=== PATIENT | male | born 1940 | race Caucasian/White ===

== ENCOUNTER 2020-11-24 09:43 | Outpatient (REF) | payer MEDICARE, SELFPAY ==
[2020-11-24 11:55] LABS: MANUAL DIFF FLAG NO
[2020-11-24 12:06] LABS: Basophils Absolute Auto 0.1 X10*3/uL (0.0-0.2); Basophils Percent Auto 0.9 % (0-2); Eosinophils Absolute Auto 0.2 X10*3/uL (0.0-0.4); Eosinophils Percent Auto 1.7 % (0-4); Hematocrit 42.6 % (42-52); Hemoglobin 13.9 g/dl (14.0-18.0); Imm Gran Pct Auto 0.9 % (0.0-0.4); Lymphocytes Absolute Auto 1.6 X10*3/uL (1.2-4.9); Lymphocytes Percent Auto 13.7 % (20-40); Mean Corpuscular HGB Conc 32.6 g/dl (31.0-36.0); Mean Corpuscular Hemoglobin 28.1 pg (27.0-33.0); Mean Corpuscular Volume 86.2 fL (80-98); Mean Platelet Volume 9.6 fL (9.4-12.4); Monocytes Absolute Auto 0.9 X10*3/uL (0.1-1.2); Monocytes Percent Auto 7.8 % (2-11); Neutrophils Absolute Auto 8.7 X10*3/uL (2.0-8.3); Platelet Count 246 X10*3/uL (160-400); Red Blood Count 4.94 X10*6/uL (4.60-5.80); Red Cell Distribution Width 13.1 % (11.0-16.0); White Blood Count 11.6 X10*3/uL (4.8-10.8)
[2020-11-24 12:28] LABS: Anion Gap 12 (12-20); Blood Urea Nitrogen 25 mg/dL (9-16); Calcium 9.1 mg/dL (8.4-10.2); Carbon Dioxide 27 mmol/L (22-29); Chloride 106 mmol/L (96-108); Estimated Glomerular Filt Rate 55; Glucose Random 92 mg/dL (60-115); Potassium 4.7 mmol/L (3.3-5.1); Sodium 140 mmol/L (135-145)
[2020-11-24 13:00] LABS: Erythrocyte Sedimentation Rate 27 MM/HR (0-15)
[2020-11-26 00:11] LABS: Anti Nuclear Antibody Screen POSITIVE (NEGATIVE); Anti Nuclear Antibody Titer 1:40 titer
[2020-11-26 13:57] LABS: Anti DNA DS Antibody 1 IU/mL; Myeloperoxidase Antibody <1.0 AI; Proteinase 3 PR3 Antibodies <1.0 AI
[2020-11-26 14:22] LABS: Cyclic Citrullinated Peptide <16 UNITS
[2020-11-29 14:31] LABS: Asperg fumigatus Precip Abs NEGATIVE (NEGATIVE); Micropoly faeni Abs NEGATIVE (NEGATIVE); Pigeon serum Abs NEGATIVE (NEGATIVE); Saccharo pora viridis Abs NEGATIVE (NEGATIVE); Thermo candidus Abs NEGATIVE (NEGATIVE); Thermoa vulgaris #1 NEGATIVE (NEGATIVE)
== END 2020-11-24 09:44 | disposition home or self-care (01) ==
LOC: HO.LAB 09:43
PROVIDERS: PCP Internal Medicine; Visit Provider Hospitalist
DX: J84.9 Interstitial pulmonary disease, unspecified (principal); R06.00 Dyspnea, unspecified; J41.0 Simple chronic bronchitis; R91.8 Other nonspecific abnormal finding of lung field; R59.1 Generalized enlarged lymph nodes
CPT/HCPCS: 36415; 80048; 85025; 85652; 86021; 86038; 86039; 86200; 86225; 86331; 86606; 86609; 99202

== ENCOUNTER → 2020-12-29 09:41 | Outpatient (BNVA) | payer MEDICARE, SELFPAY | PROVIDERS: PCP Internal Medicine; Visit Provider Hospitalist | DX: R59.1 Generalized enlarged lymph nodes (principal); R91.8 Other nonspecific abnormal finding of lung field; R06.00 Dyspnea, unspecified; J41.0 Simple chronic bronchitis; J84.9 Interstitial pulmonary disease, unspecified | CPT/HCPCS: 99212 ==

== ENCOUNTER → 2021-02-10 09:35 | Outpatient (BNVA) | payer MEDICARE, SELFPAY | PROVIDERS: PCP Internal Medicine; Visit Provider Hospitalist | DX: J41.0 Simple chronic bronchitis (principal); R59.1 Generalized enlarged lymph nodes; R91.8 Other nonspecific abnormal finding of lung field; R06.00 Dyspnea, unspecified; J84.9 Interstitial pulmonary disease, unspecified; S22.49XD Multiple fractures of ribs, unspecified side, subsequent encounter for fracture with routine healing | CPT/HCPCS: 99212 ==

== ENCOUNTER 2021-02-26 09:17 | Outpatient (REF) | payer MEDICARE, SELFPAY ==
--- NOTE | ~2021-02-26 | XR_ITS ---
EXAMINATION: XR CHEST CLINICAL INFORMATION: Multiple rib fractures. COMPARISON: None TECHNIQUE: 2 views of the chest were obtained. FINDINGS: Displaced lateral right 8th rib fracture. Possible nondisplaced left 7th and 8th rib fractures. Irregular airspace opacity within the periphery of the right lung, which may represent scarring versus atelectasis. No pleural effusion or pneumothorax. Unremarkable cardiomediastinal silhouette. XR/XR chest 2V IMPRESSION: 1. Displaced right lateral 8th rib fracture and possible nondisplaced left 7th and 8th rib fractures. 2. Peripheral airspace opacity within the underlying lateral right lung which may represent atelectasis versus scarring.
== END 2021-02-26 09:18 | disposition home or self-care (01) ==
LOC: HO.XRAY 09:17
PROVIDERS: PCP Internal Medicine; Visit Provider Hospitalist
DX: S22.49XA Multiple fractures of ribs, unspecified side, initial encounter for closed fracture (principal)
CPT/HCPCS: 71046

== ENCOUNTER → 2021-04-14 09:38 | Outpatient (BNVA) | payer MEDICARE, SELFPAY | PROVIDERS: PCP Internal Medicine; Visit Provider Hospitalist | DX: J41.0 Simple chronic bronchitis (principal); J84.9 Interstitial pulmonary disease, unspecified; R06.00 Dyspnea, unspecified; K21.9 Gastro-esophageal reflux disease without esophagitis; R59.1 Generalized enlarged lymph nodes; R91.8 Other nonspecific abnormal finding of lung field; S22.49XD Multiple fractures of ribs, unspecified side, subsequent encounter for fracture with routine healing | CPT/HCPCS: 99212 ==

== ENCOUNTER 2021-06-09 08:06 | Outpatient (REF) | payer MEDICARE, SELFPAY ==
--- NOTE | ~2021-06-09 | CT_ITS ---
EXAMINATION: CT CHEST WITHOUT CONTRAST CLINICAL INFORMATION: Rib fractures COMPARISON: Previous chest x-ray February 2021 TECHNIQUE: Multidetector volumetric CT imaging of the chest was done. Axial MIP volume rendering provided. Sagittal and coronal reformatted images were obtained. This CT examination was performed using dose optimization techniques as appropriate, variously including the following: *Automated exposure control *Adjustment of mA and/or kV according to patient size (this includes techniques or standardized protocols for targeted exams where dose is matched to indication/reason for exam; i.e. extremities or head) *Use of iterative reconstruction technique DLP: 134 mGy-cm FINDINGS: LUNGS: There are 2 adjacent calcified nodules in the right middle lobe. 4 mm and 3 mm axial image 3 02/18/1973 series 7. There is peripheral or subpleural linear scarring or subsegmental atelectasis in the right lower lobe. There is subsegmental atelectasis in the left lower lobe adjacent to the diaphragm. MEDIASTINUM: There is evidence of atherosclerotic disease. There may be a small esophageal hernia. The mediastinum is otherwise normal. PLEURA: There is no pleural effusion. No pneumothorax. AXILLA: No lymphadenopathy. UPPER ABDOMEN: There may be a partially visualized cyst with wall calcification seen in the upper pole of the left kidney. There is diverticulosis of the colon. There is question of a small 5 mm low-attenuation lesion in the right lobe the liver axial image 54 series 3. OSSEOUS STRUCTURES: There are healing right posterior seventh and eighth rib fractures. There are healing lateral right sixth through ninth rib fractures. Fractures appear nondisplaced. There are mild degenerative changes of the spine. CT/CT chest wo con IMPRESSION: Multiple healing nondisplaced right lateral and posterior rib fractures, the right sixth through ninth ribs. Adjacent scarring or subsegmental atelectasis in the right lower lobe. 2 small calcified right middle lobe nodules probably representing calcified granulomas. Fleischner guidelines were followed.
== END 2021-06-09 08:07 | disposition home or self-care (01) ==
LOC: HO.CT 08:06
PROVIDERS: Visit Provider Hospitalist
DX: R59.1 Generalized enlarged lymph nodes (principal); R91.8 Other nonspecific abnormal finding of lung field; S22.49XD Multiple fractures of ribs, unspecified side, subsequent encounter for fracture with routine healing
CPT/HCPCS: 71250

== ENCOUNTER → 2021-06-22 09:00 | Outpatient (BNVA) | payer MEDICARE, SELFPAY | PROVIDERS: PCP Internal Medicine; Visit Provider Hospitalist | DX: R59.1 Generalized enlarged lymph nodes (principal); J41.0 Simple chronic bronchitis; R91.8 Other nonspecific abnormal finding of lung field; R06.00 Dyspnea, unspecified; J84.9 Interstitial pulmonary disease, unspecified; S22.49XD Multiple fractures of ribs, unspecified side, subsequent encounter for fracture with routine healing | CPT/HCPCS: 99212 ==

== ENCOUNTER → 2021-11-17 09:31 | Outpatient (BNVA) | payer MEDICARE, SELFPAY | PROVIDERS: PCP Internal Medicine; Visit Provider Hospitalist | DX: R91.8 Other nonspecific abnormal finding of lung field (principal); J41.0 Simple chronic bronchitis; J84.9 Interstitial pulmonary disease, unspecified; R06.00 Dyspnea, unspecified; S22.49XD Multiple fractures of ribs, unspecified side, subsequent encounter for fracture with routine healing; Z79.899 Other long term (current) drug therapy; Z99.81 Dependence on supplemental oxygen | CPT/HCPCS: 99212 ==

== ENCOUNTER 2022-06-16 08:06 | Outpatient (REF) | payer MEDICARE, SELFPAY ==
--- NOTE | ~2022-06-16 | CT_ITS ---
EXAMINATION: CT CHEST WITHOUT CONTRAST CLINICAL INFORMATION: Follow-up pulmonary nodules COMPARISON: Previous chest CT May 2021 TECHNIQUE: Multidetector volumetric CT imaging of the chest was done. Axial MIP volume rendering provided. Sagittal and coronal reformatted images were obtained. This CT examination was performed using dose optimization techniques as appropriate, variously including the following: *Automated exposure control *Adjustment of mA and/or kV according to patient size (this includes techniques or standardized protocols for targeted exams where dose is matched to indication/reason for exam; i.e. extremities or head) *Use of iterative reconstruction technique DLP: 241 mGy-cm FINDINGS: LUNGS: There is a new triangular-shaped right millimeter right middle lobe nodule axial image 288 series 4. The clustered noncalcified pulmonary nodules in the right middle lobe largest measuring 3 mm are stable. The 2 mm calcified left upper lobe nodule axial image 114 series 4 is stable. There is bilateral peripheral or subpleural lower lobe scarring or chronic subsegmental atelectasis that is stable. MEDIASTINUM: Normal heart size. No pericardial effusion. Upper normal-size thoracic aorta. Coronary artery and aortic valve calcification. No enlarged lymph nodes. CORONARY ARTERY CALCIFICATION: Moderate PLEURA: There is no pleural effusion. AXILLA: No lymphadenopathy. UPPER ABDOMEN: 6 cm cyst exophytic to the upper pole of the left kidney with a focus of wall calcification. Diverticulosis of the colon. 5 mm low-attenuation liver lesion in the right lobe that is stable axial image 50 series 2. Question 5 mm low-attenuation lesion in the left lobe axial image 50 series 2. OSSEOUS STRUCTURES: Old right rib fractures. Degenerative changes of the spine. CT/CT chest wo IV con IMPRESSION: Stable pulmonary nodules and scarring or chronic subsegmental atelectasis in the lateral lower lobes. Coronary artery and aortic valve calcification. Upper normal-size thoracic aorta. Fleischner guidelines were followed.
== END 2022-06-16 08:07 | disposition home or self-care (01) ==
LOC: HO.CT 08:06
PROVIDERS: PCP Internal Medicine; Visit Provider Hospitalist
DX: R91.8 Other nonspecific abnormal finding of lung field (principal)
CPT/HCPCS: 71250

== ENCOUNTER → 2022-06-21 09:11 | Outpatient (BNVA) | payer MEDICARE, SELFPAY | PROVIDERS: PCP Internal Medicine; Visit Provider Hospitalist | DX: J41.0 Simple chronic bronchitis (principal); R91.8 Other nonspecific abnormal finding of lung field; R06.00 Dyspnea, unspecified; J84.9 Interstitial pulmonary disease, unspecified | CPT/HCPCS: 99212 ==

== ENCOUNTER → 2022-10-06 10:53 | Outpatient (BNVA) | payer MEDICARE, SELFPAY | PROVIDERS: PCP Internal Medicine; Visit Provider Hospitalist | DX: J44.1 Chronic obstructive pulmonary disease with (acute) exacerbation (principal); J84.9 Interstitial pulmonary disease, unspecified; R91.8 Other nonspecific abnormal finding of lung field; R06.00 Dyspnea, unspecified | CPT/HCPCS: 94640; 96372; 99212; J2930 ==

== ENCOUNTER → 2022-10-21 10:16 | Outpatient (REF) | payer MEDICARE, SELFPAY ==
--- NOTE | 2022-10-21 11:04 | ECG_ITS ---
Test Reason : COPD Blood Pressure : / mmHG Vent. Rate : 054 BPM Atrial Rate : 054 BPM P-R Int : 130 ms QRS Dur : 096 ms QT Int : 426 ms P-R-T Axes : 061 027 030 degrees QTc Int : 403 ms Sinus bradycardia with occasional Premature ventricular complexes Otherwise normal ECG No previous ECGs available Referred By: Cristian Ferreira Electronically Signed By:MARIETTA LONG MD
== END ==
LOC: HO.CARD 10:16
PROVIDERS: PCP Internal Medicine; Visit Provider Hospitalist
DX: J44.9 Chronic obstructive pulmonary disease, unspecified (principal); J84.9 Interstitial pulmonary disease, unspecified; R91.8 Other nonspecific abnormal finding of lung field; Z79.899 Other long term (current) drug therapy
CPT/HCPCS: 93005; 99212

== ENCOUNTER 2023-02-08 08:43 | Outpatient (REF) | payer MEDICARE, SELFPAY ==
--- NOTE | ~2023-02-08 | XR_ITS ---
EXAMINATION: XR CHEST CLINICAL INFORMATION: Pneumonia. COMPARISON: None available. TECHNIQUE: 2 views of the chest were obtained. FINDINGS: The lungs are well-expanded and clear acute pneumonic process. The heart size and pulmonary vascularity is normal. No gross bony abnormality seen. XR/XR chest 2V IMPRESSION: Unremarkable chest exam.
== END 2023-02-08 08:44 | disposition home or self-care (01) ==
LOC: HO.XRAY 08:43
PROVIDERS: PCP Internal Medicine; Visit Provider Hospitalist
DX: R04.2 Hemoptysis (principal); J44.9 Chronic obstructive pulmonary disease, unspecified; R91.8 Other nonspecific abnormal finding of lung field; J18.9 Pneumonia, unspecified organism
CPT/HCPCS: 71046; 94618; 99212

== ENCOUNTER 2023-02-08 09:06 | Outpatient (AMB) | payer MEDICARE, SELFPAY ==
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
[2023-02-08 09:17] VITALS: BP 126/70; PULSE 50; O2SAT 96; BMI 25.3
[2023-02-08 11:02] VITALS: PULSE 47; O2SAT 94
== END 2023-02-08 11:03 | disposition home or self-care (01) ==
PROVIDERS: PCP Internal Medicine; Visit Provider Nurse Practitioner Family
DX: R04.2 Hemoptysis (principal); J44.9 Chronic obstructive pulmonary disease, unspecified; R91.8 Other nonspecific abnormal finding of lung field
CPT/HCPCS: 94618; 99214

== ENCOUNTER 2023-02-15 10:43 | Outpatient (AMB) | payer MEDICARE, SELFPAY ==
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
[2023-02-15 11:24] VITALS: BP 134/70; PULSE 51; O2SAT 94; BMI 25.0
== END 2023-02-15 12:06 | disposition home or self-care (01) ==
PROVIDERS: PCP Internal Medicine; Visit Provider Hospitalist
DX: J18.9 Pneumonia, unspecified organism (principal); R91.8 Other nonspecific abnormal finding of lung field
CPT/HCPCS: 99215

== ENCOUNTER → 2023-02-15 10:43 | Outpatient (BNVA) | payer MEDICARE, SELFPAY | PROVIDERS: Visit Provider Hospitalist | DX: J84.9 Interstitial pulmonary disease, unspecified (principal); J44.9 Chronic obstructive pulmonary disease, unspecified; R91.8 Other nonspecific abnormal finding of lung field; R06.00 Dyspnea, unspecified | CPT/HCPCS: 99212 ==

== ENCOUNTER 2023-03-02 07:27 | Outpatient (REF) | payer MEDICARE, SELFPAY ==
--- NOTE | ~2023-03-02 | CT_ITS ---
EXAMINATION: CT CHEST WITHOUT CONTRAST CLINICAL INFORMATION: Other nonspecific abnormal finding of lung field. COMPARISON: Chest radiograph 02/08/2023, CT chest 06/16/2022. TECHNIQUE: Multidetector volumetric CT imaging of the chest was done. Axial MIP volume rendering provided. Sagittal and coronal reformatted images were obtained. This CT examination was performed using dose optimization techniques as appropriate, variously including the following: *Automated exposure control. *Adjustment of mA and/or kV according to patient size (this includes techniques or standardized protocols for targeted exams where dose is matched to indication/reason for exam; i.e. extremities or head). *Use of iterative reconstruction technique. DLP: 119 mGy-cm FINDINGS: LUNGS: Some tiny punctate micronodules are seen most of which are calcified consistent with calcified granulomas. Previously seen new right middle lobe triangular opacity by my measurements previously measured 6 mm and currently measures 5 mm in greatest transverse dimension (7:345 compare prior 4:288). I suspect that this represents an intrapulmonary lymph node. The lungs are otherwise clear with no evidence of inflammation or concerning nodules. MEDIASTINUM: Heart size normal. No aortic aneurysm. Aortic valvular calcification. No mediastinal or hilar lymphadenopathy. CORONARY ARTERY CALCIFICATION: Present. PLEURA: There is old healed rib fracture on the right with some associated mild pleural thickening at that site. There is no pleural effusion. No worrisome pleural mass . AXILLA: No lymphadenopathy. UPPER ABDOMEN: Partial visualization of a 6 cm exophytic cyst arising from the upper pole of the left kidney with some calcification in its wall similar to prior. OSSEOUS STRUCTURES: Unremarkable. CT/CT chest wo IV con IMPRESSION: 1. No worrisome change in lung nodules. Most are granulomas. The largest is most likely an intrapulmonary lymph node which has decreased in size slightly. 2. Stable left renal cyst (probably Bosniak class II) although not completely visualized. Ultrasound could be performed for further evaluation to make certain that there are no solid components in the unimaged portion of the renal mass. Fleischner guidelines were followed.
== END 2023-03-02 07:28 | disposition home or self-care (01) ==
LOC: HO.CT 07:27
PROVIDERS: PCP Internal Medicine; Visit Provider Hospitalist
DX: J18.9 Pneumonia, unspecified organism (principal); R04.2 Hemoptysis; R91.8 Other nonspecific abnormal finding of lung field
CPT/HCPCS: 71250

== ENCOUNTER 2023-05-12 11:16 | Outpatient (AMB) | payer MEDICARE, SELFPAY ==
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
[2023-05-12 11:18] VITALS: BP 120/58; PULSE 69; O2SAT 93
== END 2023-05-12 11:55 | disposition home or self-care (01) ==
PROVIDERS: PCP Internal Medicine; Visit Provider Hospitalist
DX: J18.9 Pneumonia, unspecified organism (principal); R91.8 Other nonspecific abnormal finding of lung field; R06.00 Dyspnea, unspecified
CPT/HCPCS: 99214

== ENCOUNTER → 2023-05-12 11:16 | Outpatient (BNVA) | payer MEDICARE, SELFPAY | PROVIDERS: PCP Internal Medicine; Visit Provider Hospitalist | DX: J18.9 Pneumonia, unspecified organism (principal); J84.9 Interstitial pulmonary disease, unspecified; R91.8 Other nonspecific abnormal finding of lung field; R06.00 Dyspnea, unspecified | CPT/HCPCS: 99212 ==

== ENCOUNTER 2023-08-10 09:58 | Outpatient (AMB) | payer MEDICARE, SELFPAY ==
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
[2023-08-10 10:13] VITALS: BP 138/76; PULSE 58; O2SAT 94; BMI 25.0
== END 2023-08-10 10:53 | disposition home or self-care (01) ==
PROVIDERS: PCP Internal Medicine; Visit Provider Hospitalist
DX: J44.1 Chronic obstructive pulmonary disease with (acute) exacerbation (principal); R91.8 Other nonspecific abnormal finding of lung field; J84.9 Interstitial pulmonary disease, unspecified; G47.10 Hypersomnia, unspecified
CPT/HCPCS: 99215

== ENCOUNTER → 2023-08-10 09:58 | Outpatient (BNVA) | payer MEDICARE, SELFPAY | PROVIDERS: PCP Internal Medicine; Visit Provider Hospitalist | DX: J44.1 Chronic obstructive pulmonary disease with (acute) exacerbation (principal); J84.9 Interstitial pulmonary disease, unspecified; R91.8 Other nonspecific abnormal finding of lung field; R06.00 Dyspnea, unspecified; G47.10 Hypersomnia, unspecified | CPT/HCPCS: 99212 ==

== ENCOUNTER 2023-12-07 09:08 | Outpatient (AMB) | payer MEDICARE, SELFPAY ==
[2023-12-07 09:15] VITALS: BP 124/60; PULSE 50; O2SAT 96; BMI 23.8
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
== END 2023-12-07 09:47 | disposition home or self-care (01) ==
PROVIDERS: PCP Internal Medicine; Visit Provider Hospitalist
DX: J41.0 Simple chronic bronchitis (principal); R91.8 Other nonspecific abnormal finding of lung field; R06.00 Dyspnea, unspecified; J84.9 Interstitial pulmonary disease, unspecified; G47.10 Hypersomnia, unspecified
CPT/HCPCS: 99214

== ENCOUNTER → 2023-12-07 09:08 | Outpatient (BNVA) | payer MEDICARE, SELFPAY | PROVIDERS: PCP Internal Medicine; Visit Provider Hospitalist | DX: J44.9 Chronic obstructive pulmonary disease, unspecified (principal); J84.9 Interstitial pulmonary disease, unspecified; R91.8 Other nonspecific abnormal finding of lung field; G47.10 Hypersomnia, unspecified | CPT/HCPCS: 99212 ==

== ENCOUNTER 2024-03-20 09:37 | Outpatient (REF) | payer MEDICARE, SELFPAY ==
--- NOTE | ~2024-03-20 | CT_ITS ---
EXAMINATION: CT CHEST WITHOUT CONTRAST CLINICAL INFORMATION: Pulmonary nodules. COMPARISON: 03/02/2023 TECHNIQUE: Multidetector volumetric CT imaging of the chest was done. Axial MIP volume rendering provided. Sagittal and coronal reformatted images were obtained. This CT examination was performed using dose optimization techniques as appropriate, variously including the following: *Automated exposure control *Adjustment of mA and/or kV according to patient size (this includes techniques or standardized protocols for targeted exams where dose is matched to indication/reason for exam; i.e. extremities or head) *Use of iterative reconstruction technique DLP: 158 mGy-cm FINDINGS: PULMONARY NODULES: Again seen are some small pulmonary nodules many of which are granulomas. The largest noncalcified nodule is again noted in the right middle lobe and measures 6.9 x 3.8 mm with a mean of 5.4 mm (7:442) compared with 5.7 x 3.7 mm previously with a mean of 4.7 mm (7:346), an increase in size by 0.7 mm. LUNGS: There are mild emphysematous changes along with mild bronchial thickening. No bronchiectasis. Bilateral basilar atelectasis, right greater than left. MEDIASTINUM: The mediastinum is normal. CORONARY ARTERY CALCIFICATION: None visualized on this study. PLEURA: There is no pleural effusion. . AXILLA: No lymphadenopathy. UPPER ABDOMEN: A benign left upper pole Bosniak class II renal cyst is noted which requires no additional imaging or follow up. No solid renal masses are seen. OSSEOUS STRUCTURES: Old healed right-sided rib fracture with some associated pleural thickening is unchanged. CT/CT chest wo IV con IMPRESSION: 1. Multiple pulmonary nodules are again seen. The largest noncalcified nodule in the right middle lobe has increased in size by 0.7 mm. Significant growth is defined as 1.5 mm within a 12-month period. 2. Mild emphysematous changes and bronchial thickening. 3. Other incidental findings as described above. 4. Follow-up exam in 1 year is recommended Fleischner guidelines were followed. Electronically signed by: Live Garcia MD 04/21/2024 03:15 PM EDT
== END 2024-03-20 09:38 | disposition home or self-care (01) ==
LOC: HO.CT 09:37
PROVIDERS: PCP Internal Medicine; Visit Provider Hospitalist
DX: R91.8 Other nonspecific abnormal finding of lung field (principal)
CPT/HCPCS: 71250

== ENCOUNTER 2024-06-04 10:06 | Outpatient (AMB) | payer MEDICARE, SELFPAY ==
[2024-06-04 10:12] VITALS: BP 119/67; PULSE 51; O2SAT 93; BMI 24.4
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
== END 2024-06-04 10:40 | disposition home or self-care (01) ==
PROVIDERS: PCP Internal Medicine; Visit Provider Hospitalist
DX: J41.0 Simple chronic bronchitis (principal); R91.8 Other nonspecific abnormal finding of lung field; R06.00 Dyspnea, unspecified; J84.9 Interstitial pulmonary disease, unspecified; G47.10 Hypersomnia, unspecified
CPT/HCPCS: 99214; G2211

== ENCOUNTER → 2024-06-04 10:06 | Outpatient (BNVA) | payer MEDICARE, SELFPAY | PROVIDERS: PCP Internal Medicine; Visit Provider Hospitalist | DX: J41.0 Simple chronic bronchitis (principal); J84.9 Interstitial pulmonary disease, unspecified; R06.00 Dyspnea, unspecified; R91.8 Other nonspecific abnormal finding of lung field; G47.10 Hypersomnia, unspecified | CPT/HCPCS: 99212 ==

== ENCOUNTER 2024-09-17 09:14 | Outpatient (REF) | payer MEDICARE, SELFPAY ==
--- NOTE | ~2024-09-17 | CT_ITS ---
CLINICAL HISTORY: R91.8 - Other nonspecific abnormal finding of lung field CT chest without contrast Comparison: CT/TN/SR - CT CHEST WO IV CON - 03/20/24 10:26 EDT Findings: The heart size is normal. 4 cm ascending aorta, unchanged. Moderate to heavy coronary calcium. No pericardial effusion. Unremarkable thyroid. No adenopathy within the chest. Decompressed esophagus. No chest wall lesions. Mild apical emphysema. The trachea and central bronchi are patent. Chronic scarring in the right lung base. A bilobed right middle lobe pulmonary nodule currently measures 5 mm on image 97 of series 4, previously 5 mm. Calcified granulomas in the right middle lobe are stable. No new or enlarging pulmonary nodules or masses. No acute appearing consolidation or effusion. Large partially visualized left renal cysts, incompletely characterized. Small hiatal hernia. The bones are intact. IMPRESSION: 1. Small noncalcified pulmonary nodules are stable. Prior granulomatous disease. No acute process or new nodules. 2. Dilated ascending aorta up to 4 cm is stable. This document has been electronically signed by: Echo Davis MD on 09/18/2024 09:04:38
--- OUTSIDE RECORDS SUMMARY | 2024-09-17 09:57 | XMS_ITS ---
Author Name [facility] [place] [facility] [place] Address [address] [place] [address] Care Team Providers Care Printer'S Assistant Name Role Phone PAMELA BOLAÑOS Primary Care Provider Unavaila ble Insurance Providers: All historical and current Section Date Range: From patient's date of to the date document was created. This section includes the names of all active insurance providers for the patient. Insurance Provider Type of Coverage Plan Name Start of Policy Coverage End of Policy Coverage Group Number Member ID Insurance Provider's Telephone Number Policy Pete's Name Patient's Relationship to Policy Pete [facility] ([facility]) MEDICARE ADVANTAGE MCR ([facility]) Jul 18, 2019 [id number] OCHOA RANGEL PATIENT [facility] ([facility]NR) MEDICARE ADVANTAGE MCR (R) Jul 18, 2019 [id number] OCHOA RANGEL PATIENT [facility] ([place]NR) MEDICARE ADVANTAGE MCR (WNR) Jul 18, 2019 [id number] JUAN CARLOSOCHOAWilliam PATIENT [facility] ([place]) MEDICARE ADVANTAGE MCR ([facility]) Jul 18, 2017 [id number] OCHOA RANGEL PATIENT Selected Encounter This section includes the information on record at [place] for the Encounter. 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 BOLAÑOS,WILL ROSS [facility] Dec 21, 2023 02:28 PM SECONDARY Acute embolism and thombos unsp deep vn unsp lower extremity BOLAÑOS,WILL ROSS J [facility] Dec 21, 2023 02:28 PM SECONDARY Essential (primary) hypertension BOLAÑOS,WILL ROSS J [facility] Dec 21, 2023 02:28 PM SECONDARY Personal history of pulmonary embolism BOLAÑOS,WILL [facility] Dec 21, 2023 02:28 PM SECONDARY Respiratory bronchiolitis interstitial lung disease BOLAÑOS,WILL ROSS J [facility] Plan of Treatment: Future Appointments (+ 6 months) and Future Tests (+/- 45 days) The Plan of Treatment section includes future care activities for the patient from all [facility]. This section includes future appointments and future orders which are active, pending or scheduled. Future Appointments This section includes appointments that were scheduled to occur 6 months from the date of the Encounter, up to a maximum of 20 appointments. The data comes from all [place] treatment facilities. Appointment Date/Time Appointment Type Appointme nt Facility Name Jan 16, 2024 08:00 AM [facility] Mar 05, 2024 10:30 AM [facility] Jun 08, 2024 01:00 PM [facility] Lab Results: +/- 30 days of the encounter This section includes the Chemistry and Hematology Lab Results on record with [place] for the patient. Radiology Reports and Pathology Reports are provided separately, in subsequent sections. Lab Results This section contains the Chemistry/Hematology Results that were resulted 30 days before or 30 daysafter the date of the Encounter. Date/Time Source Result Type Result - Unit Interpretation Reference Range Comment Dec 21, 2023 10:26 AM [facility] LIPID PANEL, NON FASTING Specimen Type: SERUM No comment entered. Ordering Provider: FLOR BOLAÑOS Report Released Date/Time: December 07, 2023 02:55 PM Reporting Lab: [address] [id number] Performing Lab: [address] [address] CHOLESTEROL 147 mg/dL TRIGLYCERIDE 76 mg/dL 0-150 LDL calculated 78 mg/dL 0-129 CHOL/HDL 2.7 HDL CHOLESTEROL 54 mg/dL 40-60 Dec 21, 2023 10:26 AM [facility] CBC Specimen Type: BLOOD No comment entered. Ordering Provider: FLOR BOLAÑOS Report Released Date/Time: December 07, 2023 02:55 PM Reporting Lab: [address] [address] Performing Lab: [address] [address] WBC 7.63 10*3/uL 4.50-11.00 RBC 4.98 10*6/uL 4.23-5.66 HGB 14.0 g/dL 12.8-17 HCT 42.5 39.2-50.4 MCV 85.3 fL 82-99 MCHC 32.9 g/dL 30.8-35.1 PLT 237 10*3/uL 140-360 RDW-CV 14.1 12.0-16.0 MCH 28.1 pg 26.2-32.6 Dec 21, 2023 10:26 AM [facility] BASIC METABOLIC PANEL (non-fasting) Specimen Type: SERUM No comment entered. Ordering Provider: FLOR BOLAÑOS Report Released Date/Time: December 07, 2023 02:55 PM Reporting Lab: [address] [address] Performing Lab: [address] [address] UREA NITROGEN 21 mg/dL 7-25 GLUCOSE 121 mg/dL H 65-100 SODIUM 142 mmol/L 135-145 POTASSIUM 4.6 mmol/L 3.5-5.0 CHLORIDE 110 mmol/L 100-110 CO2 25 meq/L 20-30 CREATININE, Serum 1.12 mg/dL 0.50-1.40 eGFR(CKD-EPI 2020) 64 mL/min >60 Dec 21, 2023 10:26 AM [facility] PT & INR (PROTIME) Specimen Type: PLASMA No comment entered. Ordering Provider: FLOR BOLAÑOS Report Released Date/Time: December 07, 2023 02:55 PM Reporting Lab: [address] [address] Performing Lab: [address] [address] INR 1.1 PROTIME 12.6 s 10.0-13.1 Dec 21, 2023 10:26 AM [facility] LIVER FUNCTION Specimen Type: SERUM No comment entered. Ordering Provider: FLOR BOLAÑOS Report Released Date/Time: December 07, 2023 02:55 PM Reporting Lab: [address] [address] Performing Lab: [address] [address] PROTEIN,TOTAL 6.1 g/dL 6.0-8.3 ALBUMIN 3.3 g/dL L 3.5-5.0 ALKALINE PHOSPHATASE 64 U/L 40-150 AST 12 U/L 5-34 ALT 13 U/L BILIRUBIN, TOTAL 0.4 mg/dL 0.2-1.2 Vital Signs: All taken on the encounter date This section contains inpatient and outpatient Vital Signs collected on the date of the Encounter. Date/Time Temperature Pulse Blood Pressure Respiratory Rate SP02 Pain Height Weight Body Mass Index Source Dec 21, 2023 09:48 AM 97.6 50 136/76 20 95 0 64 144 25 [facility] Social History: Smoking Status (Most current) and Tobacco Use (All prior to encounter date) This section includes the most current, and the historical, smoking and tobacco- related health factors from the [place] facility where the Encounter took place. Current Smoking Status This section includes the most current smoking, or tobacco-related health factor, from the [place] facility where the Encounter took place. Date/Time Current Smoking Status Comment Dena ity Dec 21, 2023 10:00 AM VA-TOBACCO NEVER USED [facility] Tobacco Use History This section includes a history of the smoking, or tobacco-related health factors, that were collected on or before the date of the Encounter. The data comes from the [place] facility where the Encounter took place. Date/Time Smoking Status/Tobacco Use Comment F acility Oct 14, 2022 08:30 AM VA-TOBACCO NEVER USED [facility] [facility] [place] [facility] Oct 07, 2021 03:00 PM VA-TOBACCO NEVER USED [facility] [place] [facility] Sep 26, 2020 09:00 AM VA-TOBACCO NEVER USED [facility] [place] [facility] Aug 14, 2019 02:17 PM VA-TOBACCO NEVER USED [facility] [place] [facility] Jun 14, 2018 10:41 AM VA-TOBACCO NEVER USED [facility] [place] [facility] Mar 30, 2017 09:18 AM LIFETIME NON-TOBACCO USER [facility] [place] [facility] Dec 26, 2015 09:53 AM LIFETIME NON-TOBACCO USER [facility] Advance Directives: All historical and current Section Date Range: From patient's date of to the date document was created. This section includes ALL of a patient's completed or amended [place] Advance and Rescinded Directives. The entries below indicate that a directive exists for the patient, but an actual copy is not included with this document. The data comes from all [place] facilities. Date Advance Directives Provider Source Feb 18, 2020 ADVANCE DIRECTIVE [facility] DE LA CRUZ [facility] Encounter Notes: All associated encounter notes This section contains the clinical notes associated to the Encounter. Date/Time Encounter Note(s) Provider Source Dec 21, 2023 12:22 PM PRIMARY CARE NURSE PRACTITIONER OUTPATIENT NOTE: LOCAL TITLE: NURSE PRACTITIONER OUTPATIENT NOTE STANDARD TITLE: PRIMARY CARE NURSE PRACTITIONER OUTPATIENT NOTE DATE OF NOTE: DEC 21, 2023@12:22 ENTRY DATE: DEC 21, 2023@12:22:27 AUTHOR: PAMELA BOLAÑOSIGNER: URGENCY: STATUS: COMPLETED Chief complaint: Patient is a 83 year old [place]. HPI: Pleasant male here with his . He was started on spiriva and completed pulm rehab, breathing much better. He also reports he is now on zetia per his records management coordinator. Will check lipids today. Maintains community PCP, Dr Logan. He reports he was on methyphenidate in the past and that she restarted him on, feeling well. Allergies: GABAPENTIN The following VA and Non-VA meds were reconciled with patient. The patient was educated on the use of the medications including indication and side effects. Active and Recently Outpatient Medications (excluding Supplies): Active Outpatient Medications Status 1) ALBUTEROL 3/IPRATROP 0.5MG/3ML INHL 3ML INHALE 1 VIAL ACTIVE (3ML) IN NEBULIZER EVERY 6 HOURS NEEDED FOR BRONCHOSPASM 2) APIXABAN 2.5MG TAB TAKE ONE TABLET BY MOUTH TWICE ACTIVE DAILY FOR PREVENTION OF BLOOD CLOTS NOTE TABLET STRENGTH AND DIRECTIONS 3) FLUTICAS 500/SALMETEROL 50 INHL DISK 60 INHALE 1 PUFF ACTIVE BY MOUTH TWICE DAILY - RINSE MOUTH AFTER USE 4) OMEPRAZOLE 20MG EC CAP TAKE TWO CAPSULES BY MOUTH ACTIVE (S) EVERY MORNING 30 MINUTES BEFORE BREAKFAST 5) TIOTROPIUM 2.5MCG/ACTUAT 60D ORAL INHL INHALE 2 PUFFS ACTIVE BY MOUTH ONCE DAILY FOR BRONCHOSPASM PREVENTION WITH COPD Active Non-VA Medications Status 1) Non-VA AMLODIPINE BESYLATE 2.5MG TAB 7.5 MG BY MOUTH ACTIVE DAILY 2) Non-VA ASPIRIN 81MG EC TAB 81MG BY MOUTH ONCE DAILY ACTIVE 3) Non-VA CITALOPRAM HYDROBROMIDE 40MG TAB 20MG BY MOUTH ACTIVE DAILY 4) Non-VA COENZYME Q10 CAP/TAB BY MOUTH ONCE DAILY ACTIVE 5) Non-VA CYANOCOBALAMIN 1000MCG TAB 2000MCG BY MOUTH ACTIVE ONCE DAILY 6) Non-VA LACTULOSE 10GM/15ML ORAL SOLN 15 ML (1 ACTIVE TABLESPOON) BY MOUTH ONCE DAILY 7) Non-VA LORAZEPAM 1MG TAB 1MG BY MOUTH ONCE DAILY ACTIVE NEEDED 8) Non-VA MONTELUKAST NA 10MG TAB 10MG BY MOUTH DAILY ACTIVE 9) Non-VA OTHER CAP/TAB OLMASARTAN/MEDOXOMIL BY MOUTH ACTIVE DIRECTED 10) Non-VA OXYGEN MISCELLANEOUS OXYGEN DIRECTED AT ACTIVE BEDTIME 11) Non-VA POLYETHYLENE GLYCOL 3350 ORAL PWDR 17 GRAMS (1 ACTIVE CAPFUL) BY MOUTH THREE TIMES DAILY NEEDED 12) Non-VA SIMVASTATIN 80MG TAB 40MG BY MOUTH ONCE DAILY ACTIVE 17 Total Medications Review of Systems: Constitutional: (-)for Fevers, chills, weakness, nights sweats On examination: 97.6 F [36.4 C] (12/21/2023 09:48)136/76 (12/21/2023 09:48)50 (12/21/2023 09:48)20 (12/21/2023 09:48)0 (12/21/2023 09:48)BMI: 24.8144 lb [65.32 kg] (12/21/2023 09:48) is alert and oriented X3 Cardiovasc: 2plus carotids without bruits, no JVD Heart Reguler rate and rhythm NL S1S2 no S3 or murmur Respiration: Normal respiratory effort, lungs clear ABD: Benign normal active bowel sounds no HSM no rebound or referred pain EXT: no clubbing, edema, or cyanosis All diagnostics from past month were reviewed with patient. Assessment/plan: Active problems - Computerized Problem List is the source for the followin. Interstitial lung disease - see above, follows non va pulDr Jhon alvarez 2. Deep venous thrombosis - skilled nursing a/c 3. Polycystic kidney disease, adult type - labs today 4. Essential hypertension - well controlled Review of medial record = 5mins Time spent with Patient including shared decision making = 20 mins Post visit documentation = 5mins Total time = 30 mins Follow up visit in 6 mos. Alert to PACT RN - Labs as necessary to address clinical status. Medication Reconciliation: Outpatient: Has the patient been taking medications as documented in the EMLR? YES: The patient has been taking medications as documented in the EMLR. Essential Medication List for Review used to complete this medication reconciliation. INCLUDED IN THIS LIST: Alphabetical list of active outpatient prescriptions dispensed from this [place] (local) and dispensed from another VA or [facility]D facility (remote) as well as inpatient orders (local, pending and active), local clinic medications, locally documented non-VA medications, and local prescriptions that have or been discontinued in the past 90 days. - All changes in medications, including all non-VA/Herbal/OTC medications were entered into CPRS. - If there were any medications the patient should no longer take, they were discontinued. - The patient/caregiver was instructed to update this list, discard old lists, and take this list to the next appointment, whether with a VA or non-VA provider. /maciel/ Pamela Bolaños [facility], SAND TESTER-BC, CNL Primary Care Nurse Practitioner Signed: 12/21/2023 14:27 PAMELA BOLAÑOS [facility] [facility] [place] [facility] Dec 21, 2023 09:51 AM PREVENTIVE MEDICINE NURSING NOTE: LOCAL TITLE: CLINICAL REMINDERS/NURSING STANDARD TITLE: PREVENTIVE MEDICINE NURSING NOTE DATE OF NOTE: DEC 21, 2023@09:51 ENTRY DATE: DEC 21, 2023@09:51:11 AUTHOR: GIANCARLO CASTLE COSIGNER: URGENCY: STATUS: COMPLETED Suicide Screen: C-SSRS Screening Roosevelt-Suicide Severity Rating Scale (C-SSRS Screener) 1. Over the past month, have you wished you were or wished you could go to sleep and not wake up? No 2. Over the past month, have you had any actual thoughts of killing yourself? No 3. Over the past month, have you been thinking about how you might do this? Response not required due to responses to other questions. 4. Over the past month, have you had these thoughts and had some intention of acting on them? Response not required due to responses to other questions. 5. Over the past month, have you started to work out or worked out the details of how to kill yourself? Response not required due to responses to other questions. 6. If yes, at any time in the past month did you intend to carry out this plan? Response not required due to responses to other questions. 7. In your lifetime, have you ever done anything, started to do anything, or prepared to do anything to end your life (for example, collected pills, obtained a gun, gave away valuables, went to the roof but didn't jump)? No 8. If YES, was this within the past 3 months? Response not required due to responses to other questions. Homelessness/Food Insecurity Screen: In the past 2 months, have you been living in stable housing that you own, rent, or stay in as part of a household? Yes - Living in stable housing. Are you worried or concerned that in the next 2 months you may NOT have stable housing that you own, rent, or stay in as part of a household? No - Not worried about housing near future The reports the following: Within the past 12 months, you worried whether your food would run out before you got money to buy more. Never true Within the past 12 months, the food you bought just didn't last and you didn't have money to get more. Never true Depression Screening: Perform PHQ-2 A PHQ-2 screen was performed. The score was 0 which is a negative screen for depression. Over the past two weeks, how often have you been bothered by the following problems? 1. Little interest or pleasure in doing things Not at all 2. Feeling down, depressed, or hopeless Not at all Falls & Incontinence Screen: Falls Screen: During the past 12 months, did the patient report any falls? 4. No falls within the past year. Incontinence Screen: During the past 12 months, has the patient has any characteristics of incontinence (ability, voiding, leakage, etc.)? No incontinence. Tobacco Use Screening: The patient has never used tobacco. Alcohol Use Screen (AUDIT-C): Alcohol Screen: SCREEN FOR ALCOHOL (AUDIT-C) An alcohol screening test (AUDIT-C) was negative (score=1). 1. How often did you have a drink containing alcohol in the past year? Consider a drink to be a 12 ounce can or bottle of regular beer, 8 ounces of malt liquor, a 5 ounce glass of table wine, or a 1.5 ounce shot of liquor (like scotch, gin, or vodka). Monthly or less 2. How many drinks containing alcohol did you have on a typical day when you were drinking in the past year? One or two drinks 3. How often did you have six or more drinks on one occasion in the past year? Never /es/ Giancarlo [employer] Lab[employer] COMMUNITY THEATER ACTOR,PRIMARY CARE Signed: 12/21/2023 09:53 GIANCARLO CASTLE [facility]
--- OUTSIDE RECORDS SUMMARY | 2024-09-17 09:57 | XMS_ITS ---
Author Name Department of Vetera Affairs ([place]) Organization [facility] of Veter[facility] ([place]) Address [address] [place] [address] Care Team Providers Care Concrete Rubber Name Role Phone PAMELA RADFORD Primary Care Provider Unavaila [facility] Insurance Providers: All historical and current Section Date Range: From patient's date of to the date document was created. This section includes the names of all active insurance providers for the patient. Insurance Provider Type of Coverage Plan Name Start of Policy Coverage End of Policy Coverage Group Number Member ID Insurance Provider's Telephone Number Policy Pete's Name Patient's Relationship to Policy Pete GARRETT [facility] ([facility]) MEDICARE ADVANTAGE MCR ([facility]) Jul 18, 2019 [id number] OCHOA RANGEL PATIENT [facility] (WNR) MEDICARE ADVANTAGE MCR (R) Jul 18, 2019 [id number] JUAN CARLOS,OCHOA JAQUELINE PATIENT [facility] (WNR) MEDICARE ADVANTAGE MCR (WNR) Jul 18, 2019 [id number] COHOA RANGEL PATIENT [facility] (WN) MEDICARE ADVANTAGE MCR ([facility]) Jul 18, 2017 [id number] OCHOA RANGEL PATIENT Selected Encounter This section includes the information on record at ID for the Encounter. Date/Time Encounter Type Encounter Description Reason Provider Source Jun 08, 2024 01:00 PM HEARING AID FITTING/CHECKIN G AUDIOLOGY ICD-10-CM Z46.1 Encounter for fitting and adjustment of hearing aid KRIS KNIGHT [facility] Encounter Template Text not used by ID Assessments - Encounter Diagnoses This section includes the primary and secondary diagnoses documented for the Encounter. Date/Time Primary/Secondary Diagnosis Diagnosis Name Provider Source Jun 08, 2024 04:52 PM PRIMARY Encounter for fitting and adjustment of hearing aid KRIS KNIGHT [facility] Jun 08, 2024 04:52 PM SECONDARY Sensorineural hearing loss, bilateral KRIS KNIGHT [facility] Plan of Treatment: Future Appointments (+ 6 months) and Future Tests (+/- 45 days) The Plan of Treatment section includes future care activities for the patient from all [facility]. This section includes future appointments and future orders which are active, pending or scheduled. Future Appointments This section includes appointments that were scheduled to occur 6 months from the date of the Encounter, up to a maximum of 20 appointments. The data comes from all [facility]. Appointment Date/Time Appointment Type Appointme nt Facility Name Jun 22, 2024 08:30 AM AMBULATORY - REHAB MEDICIN E [facility] Jun 22, 2024 09:30 AM AMBULATORY - MEDICINE [facility] Sep 11, 2024 11:00 AM AMBULATORY - REHAB MEDICIN E [facility] Active, Pending, and Scheduled Orders This section includes a listing of several types of active, pending, and scheduled orders, including clinic medications orders, diagnostic test orders, procedure orders and consult orders; where the start date of the order is 45 days before the date of the Encounter or 45 days after the date of theEncounter. The data comes from all [facility]. Test Date/Time Test Type Test Details Facility Name Jun 08, 2024 12:00 AM Laboratory - Chemi stry Order CBC BLOOD (LAV-BLOOD) [facility] Jun 08, 2024 12:00 AM Laboratory - Chemi stry Order BASIC METABOLIC PANEL (non-fasting) BLOOD (SST-SERUM) [facility] Jun 08, 2024 12:00 AM Laboratory - Chemi stry Order LIPID PANEL, NON FASTING BLOOD (SST-SERUM) SP ID [facility] [place] [facility] Jun 08, 2024 12:00 AM Laboratory - Chemi stry Order LIVER FUNCTION BLOOD (SST-SERUM) SP ID [facility] [place] [facility] Jun 08, 2024 12:00 AM Laboratory - Chemi stry Order PT & INR (PROTIME) BLOOD (BLUE-PLASMA) [facility] Social History: Smoking Status (Most current) and Tobacco Use (All prior to encounter date) This section includes the most current, and the historical, smoking and tobacco- related health factors from the ID facility where the Encounter took place. Current Smoking Status This section includes the most current smoking, or tobacco-related health factor, from the ID facility where the Encounter took place. Date/Time Current Smoking Status Comment Facil ity Dec 21, 2023 10:00 AM VA-TOBACCO [facility] Tobacco Use History This section includes a history of the smoking, or tobacco-related health factors, that were collected on or before the date of the Encounter. The data comes from the ID facility where the Encounter took place. Date/Time Smoking Status/Tobacco Use Comment F acility Oct 14, 2022 08:30 AM VA-TOBACCO NEVER USED [facility] [place] [facility] Oct 07, 2021 03:00 PM VA-TOBACCO NEVER USED VA [facility] [place] [facility] Sep 26, 2020 09:00 AM VA-TOBACCO NEVER USED VA [facility] [place] [facility] Aug 14, 2019 02:17 PM VA-TOBACCO NEVER USED VA [facility] [place] [facility] Jun 14, 2018 10:41 AM VA-TOBACCO NEVER USED VA [facility] [facility] Mar 30, 2017 09:18 AM LIFETIME NON-TOBACCO USER [facility] [place] [facility] Dec 26, 2015 09:53 AM LIFETIME NON-TOBACCO USER ID [facility] [place] [facility] Advance Directives: All historical and current Section Date Range: From patient's date of to the date document was created. This section includes ALL of a patient's completed or amended VA Advance and Rescinded Directives. The entries below indicate that a directive exists for the patient, but an actual copy is not included with this document. The data comes from all ID facilities. Date Advance Directives Provider Source Feb 18, 2020 ADVANCE DIRECTIVE FERCHO DE LA CRUZ [facility] Encounter Notes: All associated encounter notes This section contains the clinical notes associated to the Encounter. Date/Time Encounter Note(s) Provider Source Jun 08, 2024 08:45 AM AUDIOLOGY E & M NO TE: LOCAL TITLE: AUDIOLOGY CLINIC STANDARD TITLE: AUDIOLOGY E & M NOTE DATE OF NOTE: JUN 08, 2024@08:45 ENTRY DATE: JUN 08, 2024@08:45:12 AUTHOR: KRIS KNIGHT COSIGNER: URGENCY: STATUS: COMPLETED AUDIOLOGY CLINIC Has ADDENDA Dx CODE: Z46.1-Encounter for Fitting/Adjusting Hearing Aid(s); H90.3- Sensorineural Hearing Loss, Bilateral APPOINTMENT TYPE: Hearing Aid Check HISTORY/BACKGROUND: Duane was seen for a hearing aid follow-up appointment, unaccompanied. He was fit on 01/16/24 with [employer] AI POWER+ BTE 13s. He scheduled today's appointment noting trouble with the hearing aids. He notes that the left aid had , but he was able to clear debris from the tubing and it started working again. His main concern is that the hearing aids seem to turn off when he is in noisy environments and they don't always come back on at full volume. 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 He also feels things aren't as clear and are more muffled that the previous hearing aids. Additionally, feels the earmolds don't fit exactly right and don't insert as deep into the ear canal. The hearing aids were cleaned and checked. Listening inspection revealed both devices were working well. Tubing, tone hooks, and microphone covers were replaced. Reprogrammed hearing aids to the settings from his previous devices, however he didn't notice much improvement. Noise reduction for machine/transient noise was reduced from level 3 to level 2. MPO was increased overall by two steps. [place] was advised that the venting is smaller on the current domes which may be causing more of an occlusion effect, and since the earmolds aren't sitting as deep in his canals, he may not be hearing as well. Recommended ordering a new pair of earmolds closer in size to his previous earmolds and he was agreeable. PLAN/RECOMMENDATION(S): 1. Follow up as needed. Patient Education Education provided on the following topics: Hearing aids Education provided to: P Response to Education: VU Mcgee Patient P Family F Significant Other SO Verbalizes Understanding VU Returns Demonstration RD Performs Independently PI Lacks Comprehension LC Refused Education RE Not Applicable NA /YUMIKO Garay, [facility]-A STAFF COMMUNITY HEALTH DIRECTOR Signed: 06/08/2024 16:52 06/18/2024 ADDENDUM STATUS: COMPLETED Earmolds received and certified, left voicemail for the to contact the clinic. 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 Earmolds placed in the black cabinet. /maciel/ SEEMA SHAH Audiology Health Knock Up Assembler Signed: 06/18/2024 13:58 [facility]IGHT [facility]
--- OUTSIDE RECORDS SUMMARY | 2024-09-17 09:57 | XMS_ITS ---
Author Name Department of Vetera Affairs ([place]) Organization Department of Vetera Affairs ([place]) Address [address] [place] [address] Care Team Providers Care Hot Plate Plywood Press Offbearer Name Role Phone PAMELA RADFORD Primary Care Provider Unavaila [facility] Insurance Providers: All historical and current [...] Name Patient's Relationship to Policy Pete GARRETT [facility] ([facility]) MEDICARE ADVANTAGE MCR ([facility]) Jul 18, 2019 [id number] JUAN CARLOS,OCHOA JAQUELINE PATIENT [facility] ([facility]) MEDICARE ADVANTAGE MCR ([facility]) Jul 18, 2019 [id number] JUAN CARLOS,OCHOA CORRIEWilliam PATIENT [facility] (WNR) MEDICARE ADVANTAGE MCR (R) Jul 18, 2019 [id number] [phone] OCHOA RANGEL PATIENT [facility] ([facility]) MEDICARE ADVANTAGE MCR ([facility]) Jul 18, 2017 [id number] OCHOA RANGEL PATIENT Selected Encounter This section includes the information on record at SD for the Encounter. Date/Time Encounter Type Encounter Description Reason Provider Source Sep 11, 2024 11:00 AM HEARING AID REPAIR/MODIFYIN G AUDIOLOGY ICD-10-CM Z46.1 Encounter for fitting and adjustment of hearing aid CHRISTEL LYNCH [place] Encounter Template Text not used by [place] Assessments - Encounter Diagnoses This section includes the primary and secondary diagnoses documented for the Encounter. Date/Time Primary/Secondary Diagnosis Diagnosis Name Provider Source Sep 11, 2024 11:34 AM PRIMARY Encounter for fitting and adjustment of hearing aid [facility]ANELY LYNCH [facility] Sep 11, 2024 11:34 AM SECONDARY Sensorineural hearing loss, bilateral YANELY LYNCH [facility] Plan of Treatment: Future Appointments (+ 6 months) and Future Tests (+/- 45 days) The Plan of Treatment section includes future care activities for the patient from all [place] [facility]. This section includes future appointments and future orders which are active, pending or scheduled. Future Appointments This section includes appointments that were scheduled to occur 6 months from the date of the Encounter, up to a maximum of 20 appointments. The data comes from all [place] treatment facilities. Appointment Date/Time Appointment Type Appointme nt Facility Name Dec 21, 2024 08:30 AM AMBULATORY - MEDICINE [facility] Social History: Smoking Status (Most current) and Tobacco Use (All prior to encounter date) This section includes the most current, and the historical, smoking and tobacco- related health factors from the [place] facility where the Encounter took place. Current Smoking Status This section includes the most current smoking, or tobacco-related health factor, from the [place] facility where the Encounter took place. Date/Time Current Smoking Status Comment Dena coreas Dec 21, 2023 10:00 AM [place]-TOBACCO NEVER USED [facility] Tobacco Use History This section includes a history of the smoking, or tobacco-related health factors, that were collected on or before the date of the Encounter. The data comes from the [place] facility where the Encounter took place. Date/Time Smoking Status/Tobacco Use Comment Jose acaga Oct 14, 2022 08:30 AM VA-TOBACCO NEVER USED [place] [facility] [facility] Oct 07, 2021 03:00 PM VA-TOBACCO NEVER USED [facility] Sep 26, 2020 09:00 AM VA-TOBACCO NEVER USED [place] [facility] [place] [facility] Aug 14, 2019 02:17 PM VA-TOBACCO NEVER USED VA [facility] [place] [facility] Jun 14, 2018 10:41 AM VA-TOBACCO NEVER USED VA [facility] [facility] Mar 30, 2017 09:18 AM LIFETIME NON-TOBACCO USER VA [facility] [place] [facility] Dec 26, 2015 09:53 AM LIFETIME NON-TOBACCO USER [place] [facility] [place] [facility] Advance Directives: All historical and current Section Date Range: From patient's date of to the date document was created. This section includes ALL of a patient's completed or amended [place] Advance and Rescinded Directives. The entries below indicate that a directive exists for the patient, but an actual copy is not included with this document. The data comes from all [place] facilities. Date Advance Directives Provider Source Feb 18, 2020 ADVANCE DIRECTIVE FERCHO DE LA CRUZ [facility] Encounter Notes: All associated encounter notes This section contains the clinical notes associated to the Encounter. Date/Time Encounter Note(s) Provider Source Sep 11, 2024 07:58 AM AUDIOLOGY E & M NOTE: LOCAL TITLE: AUDIOLOGY CLINIC STANDARD TITLE: AUDIOLOGY E & M NOTE DATE OF NOTE: SEP 11, 2024@07:58 ENTRY DATE: SEP 11, 2024@07:58:23 AUTHOR: CHRISTEL LYNCH COSIGNER: URGENCY: STATUS: COMPLETED Dx CODE: Z46.1-Encounter for Fitting/Adjusting Hearing Aid(s); H90.3- Sensorineural Hearing Loss, Bilateral APPOINTMENT TYPE: Hearing Aid Programming HISTORY/BACKGROUND: The patient was seen for a hearing aid follow-up appointment. He was fit with [employer] AI Power+ BTEs on 01/16/24. He reports both hearing aids shut down in noisy environments. He has been wearing his old right Derek Betito Edge AI BTE (SN:[id number]). HEARING AID CHECK: [place]'s three hearing aids were cleaned and checked. Tubes, tone hooks, and microphone covers replaced. HEARING AID PROGRAMMING: New hearing aids were connected to [employer] and MPO was increased and speech in noise adaptation was decreased. Per request, left gain was reduced to a comfortable volume. He was advised if the hearing aids continue to randomly shut down they may need to be sent out for repair. PLAN/RECOMMENDATION(S): 1. Follow up as needed. * Patient Education Education provided on the following topics: Hearing aids Education provided to: P Response to Education: VU Mcgee Patient P Family F Significant Other SO Verbalizes Understanding VU Returns Demonstration RD Performs Independently PI Lacks Comprehension LC Refused Education RE Not Applicable NA * /maciel/ CHRISTEL LYNCH STAFF SLICE CUTTING MACHINE OPERATOR Signed: 09/11/2024 11:35 CHRISTEL LYNCH [facility] [place] [facility]
--- OUTSIDE RECORDS SUMMARY | 2024-09-17 09:57 | XMS_ITS ---
Author Name [facility] [place] Organization [facility] [place] Address [address] [place] [id number] Care Team Providers Care Airplane Cover Maker Name Role Phone PAMELA RADFORD Primary Care Provider Unavaila ble Insurance Providers: [...] Pete's Name Patient's Relationship to Policy [facility] MEDICARE ADVANTAGE MCR ([facility]) Jul 18, 2019 [id number] OCHOA RANGEL PATIENT [facility] (WNR) MEDICARE ADVANTAGE MCR (R) Jul 18, 2019 [id number] OCHOA RANGEL PATIENT [facility] (WNR) MEDICARE ADVANTAGE MCR (R) Jul 18, 2019 [id number] JUAN CARLOS,OCHOA CORRIEWilliam PATIENT [facility] (WN) MEDICARE ADVANTAGE MCR ([facility]) Jul 18, 2017 [id number] OCHOA RANGEL PATIENT Selected Encounter This section includes the information on record at CT for the Encounter. Date/Time Encounter Type Encounter Description Reason Provider Source Jan 16, 2024 08:00 AM [facility] EVALUATION AUDIOLOGY ICD-10-CM Z46.1 Encounter for fitting and adjustment of hearing aid KRIS KNIGHT [facility] Encounter Template Text not used by CT Assessments - Encounter Diagnoses This section includes the primary and secondary diagnoses documented for the Encounter. Date/Time Primary/Secondary Diagnosis Diagnosis Name Provider Source Jan 16, 2024 08:37 AM PRIMARY Encounter for fitting and adjustment of hearing aid KRIS KNIGHT [facility] Jan 16, 2024 08:37 AM SECONDARY Sensorineural hearing loss, bilateral KRIS KNIGHT [facility] Plan of Treatment: Future Appointments (+ 6 months) and Future Tests (+/- 45 days) The Plan of Treatment section includes future care activities for the patient from [facility] This section includes future appointments and future orders which are active, pending or scheduled. Future Appointments This section includes appointments that were scheduled to occur 6 months from the date of the Encounter, up to a maximum of 20 appointments. The data comes from all CT treatment facilities. Appointment Date/Time Appointment Type Appointme nt Facility Name Mar 05, 2024 10:30 AM [facility] Jun 08, 2024 01:00 PM [facility] Jun 22, 2024 08:30 AM [facility] Jun 22, 2024 09:30 AM [facility] Lab Results: +/- 30 days of the encounter This section includes the Chemistry and Hematology Lab Results on record with CT for the patient. Radiology Reports and Pathology Reports are provided separately, in subsequent sections. Lab Results This section contains the Chemistry/Hematology Results that were resulted 30 days before or 30 daysafter the date of the Encounter. Date/Time Source Result Type Result - Unit Interpretation Reference Range Comment Dec 21, 2023 10:26 AM [facility] CBC Specimen Type: BLOOD No comment entered. Ordering Provider: FLOR RADFORD Report Released Date/Time: December 07, 2023 02:55 PM Reporting Lab: [address] [phone] Performing Lab: [facility] [address] [facility] [address] WBC 7.63 10*3/uL 4.50-11.00 RBC 4.98 10*6/uL 4.23-5.66 HGB 14.0 g/dL 12.8-17 HCT 42.5 39.2-50.4 MCV 85.3 fL 82-99 MCHC 32.9 g/dL 30.8-35.1 PLT 237 10*3/uL 140-360 RDW-CV 14.1 12.0-16.0 MCH 28.1 pg 26.2-32.6 Dec 21, 2023 10:26 AM [facility] LIPID PANEL, NON FASTING Specimen Type: SERUM No comment entered. Ordering Provider: FLOR RADFORD Report Released Date/Time: December 07, 2023 02:55 PM Reporting Lab: [address] [address] Performing Lab: [facility] [address] [facility] [address] CHOLESTEROL 147 mg/dL TRIGLYCERIDE 76 mg/dL 0-150 LDL calculated 78 mg/dL 0-129 CHOL/HDL 2.7 HDL CHOLESTEROL 54 mg/dL 40-60 Dec 21, 2023 10:26 AM [facility] BASIC METABOLIC PANEL (non-fasting) Specimen Type: SERUM No comment entered. Ordering Provider: FLOR RADFORD Report Released Date/Time: December 07, 2023 02:55 PM Reporting Lab: [facility] [address] [facility] [address] Performing Lab: [address] [address] UREA NITROGEN 21 mg/dL 7-25 GLUCOSE 121 mg/dL H 65-100 SODIUM 142 mmol/L 135-145 POTASSIUM 4.6 mmol/L 3.5-5.0 CHLORIDE 110 mmol/L 100-110 CO2 25 meq/L 20-30 CREATININE, Serum 1.12 mg/dL 0.50-1.40 eGFR(CKD-EPI 2020) 64 mL/min >60 Dec 21, 2023 10:26 AM [facility] PT & INR (PROTIME) Specimen Type: PLASMA No comment entered. Ordering Provider: FLOR RADFORD Report Released Date/Time: December 07, 2023 02:55 PM Reporting Lab: [address] [address] Performing Lab: [address] [address] INR 1.1 PROTIME 12.6 s 10.0-13.1 Dec 21, 2023 10:26 AM [facility] LIVER FUNCTION Specimen Type: SERUM No comment entered. Ordering Provider: FLOR RADFORD Report Released Date/Time: December 07, 2023 02:55 PM Reporting Lab: [address] [address] Performing Lab: [address] [address] PROTEIN,TOTAL 6.1 g/dL 6.0-8.3 ALBUMIN 3.3 g/dL L 3.5-5.0 ALKALINE PHOSPHATASE 64 U/L 40-150 AST 12 U/L 5-34 ALT 13 U/L BILIRUBIN, TOTAL 0.4 mg/dL 0.2-1.2 Social History: Smoking Status (Most current) and Tobacco Use (All prior to encounter date) This section includes the most current, and the historical, smoking and tobacco- related health factors from the CT facility where the Encounter took place. Current Smoking Status This section includes the most current smoking, or tobacco-related health factor, from the [place] facility where the Encounter took place. Date/Time Current Smoking Status Comment Dena vasquezy Dec 21, 2023 10:00 AM VA-TOBACCO NEVER USED [facility] Tobacco Use History This section includes a history of the smoking, or tobacco-related health factors, that were collected on or before the date of the Encounter. The data comes from the [place] facility where the Encounter took place. Date/Time Smoking Status/Tobacco Use Comment F acility Oct 14, 2022 08:30 AM VA-TOBACCO NEVER USED [facility] Oct 07, 2021 03:00 PM VA-TOBACCO NEVER USED [facility] Sep 26, 2020 09:00 AM VA-TOBACCO NEVER USED [facility] [place] [facility] Aug 14, 2019 02:17 PM VA-TOBACCO NEVER USED [facility] [place] Jun 14, 2018 10:41 AM VA-TOBACCO NEVER USED [facility] Mar 30, 2017 09:18 AM LIFETIME NON-TOBACCO USER [facility] [place] [facility] Dec 26, 2015 09:53 AM LIFETIME NON-TOBACCO USER [facility] [place] [facility] Advance Directives: All historical and current Section Date Range: From patient's date of to the date document was created. This section includes ALL of a patient's completed or amended VA Advance and Rescinded Directives. The entries below indicate that a directive exists for the patient, but an actual copy is not included with this document. The data comes from all CT facilities. Date Advance Directives Provider Source Feb 18, 2020 ADVANCE DIRECTIVE FERCHO DE LA CRUZ MARIAELENA Mckeon [facility] [place] [facility] Encounter Notes: All associated encounter notes This section contains the clinical notes associated to the Encounter. Date/Time Encounter Note(s) Provider Source Jan 16, 2024 07:35 AM AUDIOLOGY E & M NO TE: [facility] TITLE: AUDIOLOGY CLINIC STANDARD TITLE: AUDIOLOGY E & M NOTE DATE OF NOTE: JAN 16, 2024@07:35 ENTRY DATE: JAN 16, 2024@07:35:26 AUTHOR: KRIS KNIGHT COSIGNER: URGENCY: STATUS: COMPLETED Dx CODE: Z46.1- Encounter for Fitting/Programming Hearing Aid(s); H90.3- Sensorineural Hearing Loss, Bilateral APPOINTMENT TYPE: Hearing Aid Fitting SUBJECTIVE (S): The patient was seen today for hearing aid fitting and issuance, unaccompanied. He had previously been evaluated and found to exhibit significant hearing loss for which amplification was recommended. He is a previous user of hearing aids, and was fit on 01/16/21 with MOHAMUD ARROYO BTE 13s. How does the patient best learn? Verbal instruction, demonstration Does the patient have any cultural and pentecostal beliefs, emotional barriers, physical or cognitive limitations, and communication barriers which may impact his ability to learn? No Desire and motivation to learn? Good OBJECTIVE (O): Physical fit of hearing aids was good. Patient verified comfort. Verification of an appropriate acoustic response was obtained using Real Ear measurements (speech mapping) and NAL-NL2 targets. The patient reported good subjective benefit as well. Feedback manager global communications was run. Hearing aids were found to be meeting targets adequately and MPO was not exceeding estimated UCL. Settings stored in [facility]ERMAN. ASSESSMENT (A): The following devices were issued: Make: MOHAMUD Model: [place] RoadV AI POWER+ BTE 13 Right Serial Number: [id number] Left Serial Number: [id number] Battery size: 13 Warranty ends: 01/24/27 Trial Period ends: 06/23/24 Earmold Information: Canal lock earmold Tubin Heavy Program(s): Automatic Button(s): Short press= Synced VC via rocker switches Long press= Accessory start/stop Fitting Formula: NAL-NL2 Remote Programming: HAs are capable Bluetooth: not interested Counseling was completed throughout todays appointment using a standardized curriculum that includes but is not limited to; realistic expectations with amplification in adverse listening environments, acclimatization to own voice and environmental sounds (following real-ear measurements), the importance of consistent use of amplification, proper insertion/removal, care and maintenance (including wax guards/domes if applicable), signal and alerts of devices, and charging/batteries. The was provided the opportunity to practice in office and reports confidence/understanding in all items reviewed. Time Spent= 20 minutes The patient was informed of and signed/agreed to CT policy on hearing aid issuance: Yes Users are responsible for the maintenance and security of their devices. Determination of need to replace a hearing aid is made by the CT client strategist. Hearing aids will not be replaced in cases of neglect, abuse, or excessive loss. Items issued are for personal use only. Prognosis for successful hearing aid use is good. PLAN (P): 1. Follow-up for programming/adjustments as needed. 2. The International Outcome Inventory-Hearing Aids (IOI-RAMÍREZ) will be mailed to the in four weeks. He was asked to complete and mail back to clinic after completion. Patient Education Education provided on the following topics: Hearing aid use, care, maintenance Education provided to: P Response to Education: VU, RD, PI Mcgee Patient P Family F Significant Other SO Verbalizes Understanding VU Returns Demonstration RD Performs Independently PI Lacks Comprehension LC Refused Education RE Not Applicable NA /maciel/ YUMIKO SHARIF, [facility]-A STAFF SHEETMETAL PATTERNMAKER Signed: 01/16/2024 08:37 KRIS KNIGHT [facility]
--- OUTSIDE RECORDS SUMMARY | 2024-09-17 09:57 | XMS_ITS | Clinical Summary ---
Author Organization [facility] Facility Address [address] [place] [address] Care Team Providers Care Associate Media Planner Name Role Phone Selin Logan MD Primary Care Provider Allergies Active Allergy Reactions Criticality Noted Date Comments Alendronate 04/07/2023 Other reaction(s): unknown Aspirin Other (see comments) 02/17/2021 Atorvastatin Other (see comments) 02/17/2021 Other reaction(s): muscle aches Gabapentin 04/07/2023 Other reaction(s): very depressed and nausea Lisinopril Other (see comments) 02/17/2021 Niacin Other (see comments) 02/17/2021 Other reaction(s): unknown reaction Medications albuterol HFA (PROVENTIL HFA;VENTOLIN HFA) 108 (90 Base) MCG/ACT inhaler Inhale 2 puffs 4 (four) times a day Active montelukast (SINGULAIR) 10 MG tablet Take 10 mg by mouth 1 (one) time each day 1 Active omeprazole (PriLOSEC) [address] capsule Take 40 mg by mouth 2 (two) times a day 1 Active simvastatin (ZOCOR) 40 MG tablet Take 40 mg by mouth 1 (one) time each day in the evening 1 Active Probiotic Product (PROBIOTIC PO) Take 1 tablet by mouth 1 (one) time each day Active apixaban (ELIQUIS) 2.5 MG tablet Take 2.5 mg by mouth 2 (two) times a day Active cyanocobalamin (VITAMIN B-12) 1000 MCG tablet Take 1,000 mcg by mouth 2 (two) times a day Active co-enzyme Q-10 30 MG capsule Take 30 mg by mouth 1 (one) time each day Active Magnesium 400 MG tablet Take 1 tablet by mouth 2 (two) times a day Active ascorbic acid (VITAMIN C) 500 MG CR capsule Take 500 mg by mouth 1 (one) time each day Active budesonide-form oterol (SYMBICORT) 160-4.5 MCG/ACT inhaler Inhale 2 puffs 2 (two) times a day Rinse mouth with water after use to reduce aftertaste and incidence of candidiasis. Do not swallow. Active amLODIPine (NORVASC) 5 MG tablet Take 1 tablet (5 mg total) by mouth 1 (one) time each day 3 1 Active citalopram (CeleXA) 10 MG tablet Take 10 mg by mouth 1 (one) time each day 3 Active predniSONE (DELTASONE) 10 MG tablet Take 20 mg by mouth 1 (one) time each day 3 Active methylphenidate (RITALIN) 5 MG tablet Take 5 mg by mouth 1 (one) time each day Active olmesartan (BENICAR) 20 MG tablet TAKE 1 TABLET(20 MG) BY MOUTH EVERY DAY 90 tablet 3 4 Active Active Problems Problem Noted Date Diagnosed Date Acquired renal cystic disease 04/07/2023 Allergic rhinitis 04/07/2023 04/07/2023 Amnesia 04/07/2023 04/07/2023 Aneurysm of infrarenal abdominal aorta 3 04/07/2023 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 Asthma 04/07/2023 04/07/2023 Bilateral cataracts 04/07/2023 04/07/2023 Cataract 04/07/2023 04/07/2023 Chronic hypoxemic respiratory failure 04/07/2023 04/07/2023 Emphysema 04/07/2023 04/07/2023 Complex renal cyst 04/07/2023 Computed tomography result abnormal 04/07/2023 04/07/2023 Abdominal bloating 04/07/2023 04/07/2023 Celiac disease 04/07/2023 04/07/2023 Daytime somnolence 04/07/2023 04/07/2023 Deep venous thrombosis of lower extremity 202204/07/2023 Epiretinal membrane 04/07/2023 04/07/2023 Fatigue 04/07/2023 04/07/2023 Foreign body in forearm 04/07/2023 04/07/20 Fracture of multiple ribs 04/07/20232022 Gastro-esophageal reflux disease with esophagiti s 04/07/2023 04/07/2023 Gastro-esophageal reflux disease without esophag itis 04/07/2023 04/07/2023 Generalized anxiety disorder 04/07/2023 Deep venous thrombosis 04/07/2023 History of pneumonia 04/07/2023 Overview (04/17/2024): Replacing diagnoses that were inactivated after the 04/17/24 Regulatory Import H/O: pulmonary embolus 04/07/2023 Hearing loss 04/07/2023 04/07/2023 Hematoma 04/07/2023 04/07/2023 Hyperglycemia 04/07/2023 04/07/2023 Impaired cognition 04/07/2023 04/07/2023 Impotence of organic origin 04/07/20232 07/2022 Inflammation of rotator cuff tendon 04/07/2023 04/07/2023 Injury of head 04/07/2023 04/07/2023 Insomnia 04/07/2023 04/07/2023 Hilar lymphadenopathy 04/07/2023 04/07/2023 Moderate pulmonary hypertension 04/07/2023 04/07/2023 Multiple nodules of lung 04/07/2023 023 Night sweats 04/07/2023 04/07/2023 Patient encounter status 04/07/2023 023 Patient encounter status 04/07/2023 023 Patient encounter status 04/07/2023 023 Persistent sinus bradycardia 04/07/2023 Prediabetes 04/07/2023 04/07/2023 Vertigo 04/07/2023 04/07/2023 Vitamin D deficiency 04/07/2023 04/07/2023 Hypertensive chronic kidney disease stage 3 08/0 12/2020 Stage 3a chronic kidney disease 02/17/2021 Hyperlipidemia 02/17/2021 Hypertensive disorder 02/17/2021 Polycystic kidney 02/17/2021 Immunizations Name Administration Dates Next Due Influenza Whole 04/18/2019,04/29/2016 Influenza, Unspecified 04/06/2021,2019,03/21/2018,04/02/2017,03/18 Pfizer SARS-COV-2 11/10/2021,07/08/2021,09/13/19 21,08/22/2020 Pneumococcal Polysaccharide 10/13/2018, 6 Tdap 09/05/2021,07/18/2007 Zoster 01/12/2011 Family History Medical History Relation Comments Heart disease Father Heart disease Mother Kidney disease Mother renal issues / Kidney disease Sibling cysts Relation Status Comments Father Mother Sibling Social History Tobacco Use Types Packs/Day Years Used Date Smoking Tobacco: Never Smokeless Tobacco: Never Tobacco Cessation:Counseling Given: No Alcohol Use Standard Drinks/Week Comments Yes 0 (1 standard drink = 0.6 oz pure alcohol) Alcoholic Drinks/day: Occasional social drink Sex and Gender Information Value Date Recorded Sex Assigned at Not on file Legal Sex Male 5:09 PM EST Gender Identity Not on file Sexual Orientation Not on file Last Filed Vital Signs Vital Sign Reading Time Taken Comments Blood Pressure 97/58 02/16/2024 4:27 PM EDT Pulse 54 02/16/2024 4:27 PM EDT Temperature - - Respiratory Rate - - Oxygen Saturation 95% 02/20/2021 12:16 PM EDT Inhaled Oxygen Concentration - - Weight 60.8 kg (134 lb) 02/16/2024 4:27 PM EDT Height 165.1 cm (5' 5 ) 02/20/2021 12:16 PM EDT Body Mass Index 22.3 02/20/2021 12:16 PM EDT Plan of Treatment Upcoming Encounters Date Type Department Care Team (Late st Contact Info) Description 01/03/2025 2:15 PM EDT Office Visit [facility] [address] [place] [phone] Wili Zimmer MD [address] [phone] Health Maintenance Due Date Last Done Comments Pneumococcal Vaccine: 65+ Years Completed 03/07/2023, 10/13/2018, 12/19/2015, Additional history exists Influenza Vaccine Completed 04/26/2024, , 04/20/2023, Additional history exists Hepatitis B Vaccine Aged Out No longe r eligible based on patient's age to complete this topic Insurance [facility] Care Teams Associate Media Planner Relationship Specialty Start Date End Date Selin Logan MD [address] [place] [address] PCP - General 07/28/20
--- OUTSIDE RECORDS SUMMARY | 2024-09-17 09:57 | XMS_ITS | Encounter Summary ---
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 Name Role Phone PAMELA RADFORD Primary Care [...] Pete's Name Patient's Relationship to Policy [facility]) MEDICARE ADVANTAGE MCR ([facility]) Jul 18, 2019 [id number] [phone] OCHOA RANGEL PATIENT [facility] (WNR) MEDICARE ADVANTAGE MCR (R) Jul 18, 2019 [id number] JUAN CARLOS,OCHOA JAQUELINE PATIENT [facility] (WNR) MEDICARE ADVANTAGE MCR (WNR) Jul 18, 2019 [id number] OCHOA RANGEL PATIENT [facility] (WN) MEDICARE ADVANTAGE MCR ([facility]) Jul 18, 2017 [id number] JUAN CARLOSOCHOA PARSONS PATIENT Selected Encounter This section includes the information on record at [place] for the Encounter. Date/Time Encounter Type Encounter Description Reason Provider Source Dec 20, 2023 08:00 AM Outpatient Encounter AUDIOLOGY ICD-10-CM Z02.89 Encounter for other administrative examinations ANDREINA SALDANA E Encounter Template Text not used by [place] Assessments - Encounter Diagnoses This section includes the primary and secondary diagnoses documented for the Encounter. Date/Time Primary/Secondary Diagnosis Diagnosis Name Provider Source Dec 20, 2023 09:27 AM PRIMARY Encounter for other administrative examinations ANDREINA SALDANA [place] [facility] Dec 20, 2023 09:27 AM SECONDARY Sensorineural hearing loss, bilateral ANDREINA SALDANA [facility] Plan of Treatment: Future Appointments (+ 6 months) and Future Tests (+/- 45 days) The Plan of Treatment section includes future care activities for the patient from all [place] treatmentfacilities. This section includes future appointments and future orders which are active, pending or scheduled. Future Appointments This section includes appointments that were scheduled to occur 6 months from the date of the Encounter, up to a maximum of 20 appointments. The data comes from all [place] treatment facilities. Appointment Date/Time Appointment Type Appointme nt Facility Name Dec 21, 2023 10:00 AM AMBULATORY - MEDICINE [facility] [place] [facility] Jan 16, 2024 08:00 AM AMBULATORY - REHAB MEDICIN E [place] [facility] Mar 05, 2024 10:30 AM AMBULATORY - REHAB MEDICIN E [place] [facility] [facility] Jun 08, 2024 01:00 PM AMBULATORY - [facility] Lab Results: +/- 30 days of the encounter This section includes the Chemistry and Hematology Lab Results on record with [place] for the patient. Radiology Reports and Pathology Reports are provided separately, in subsequent sections. Lab Results This section contains the Chemistry/Hematology Results that were resulted 30 days before or 30 daysafter the date of the Encounter. Date/Time Source Result Type Result - Unit Interpretation Reference Range Comment Dec 21, 2023 10:26 AM [facility] CBC Specimen Type: BLOOD No comment entered. Ordering Provider: FLOR RADFORD Report Released Date/Time: December 07, 2023 02:55 PM Reporting Lab: [facility] [address] Performing Lab: [facility] [address] [facility] [address] WBC 7.63 10*3/uL 4.50-11.00 RBC 4.98 10*6/uL 4.23-5.66 HGB 14.0 g/dL 12.8-17 HCT 42.5 39.2-50.4 MCV 85.3 fL 82-99 MCHC 32.9 g/dL 30.8-35.1 PLT 237 10*3/uL 140-360 RDW-CV 14.1 12.0-16.0 MCH 28.1 pg 26.2-32.6 Dec 21, 2023 10:26 AM [facility] LIPID PANEL, NON FASTING Specimen Type: SERUM No comment entered. Ordering Provider: FLOR RADFORD Report Released Date/Time: December 07, 2023 02:55 PM Reporting Lab: [address] [address] Performing Lab: [facility] [address] [facility] [address] CHOLESTEROL 147 mg/dL TRIGLYCERIDE 76 mg/dL 0-150 LDL calculated 78 mg/dL 0-129 CHOL/HDL 2.7 HDL CHOLESTEROL 54 mg/dL 40-60 Dec 21, 2023 10:26 AM [facility] BASIC METABOLIC PANEL (non-fasting) Specimen Type: SERUM No comment entered. Ordering Provider: FLOR RADFORD Report Released Date/Time: December 07, 2023 02:55 PM Reporting Lab: [facility] [address] [facility] [address] Performing Lab: [address] [address] UREA NITROGEN 21 mg/dL 7-25 GLUCOSE 121 mg/dL H 65-100 SODIUM 142 mmol/L 135-145 POTASSIUM 4.6 mmol/L 3.5-5.0 CHLORIDE 110 mmol/L 100-110 CO2 25 meq/L 20-30 CREATININE, Serum 1.12 mg/dL 0.50-1.40 eGFR(CKD-EPI 2020) 64 mL/min >60 Dec 21, 2023 10:26 AM [facility] PT & INR (PROTIME) Specimen Type: PLASMA No comment entered. Ordering Provider: FLOR RADFORD Report Released Date/Time: December 07, 2023 02:55 PM Reporting Lab: [address] [address] Performing Lab: [address] [address] INR 1.1 PROTIME 12.6 s 10.0-13.1 Dec 21, 2023 10:26 AM [facility] LIVER FUNCTION Specimen Type: SERUM No comment entered. Ordering Provider: FLOR RADFORD Report Released Date/Time: December 07, 2023 02:55 PM Reporting Lab: [address] [address] Performing Lab: [address] [address] PROTEIN,TOTAL 6.1 g/dL 6.0-8.3 ALBUMIN 3.3 g/dL L 3.5-5.0 ALKALINE PHOSPHATASE 64 U/L 40-150 AST 12 U/L 5-34 ALT 13 U/L BILIRUBIN, TOTAL 0.4 mg/dL 0.2-1.2 Social History: Smoking Status (Most current) and Tobacco Use (All prior to encounter date) This section includes the most current, and the historical, smoking and tobacco- related health factors from the [place] facility where the Encounter took place. Current Smoking Status This section includes the most current smoking, or tobacco-related health factor, from the [place] facility where the Encounter took place. Date/Time Current Smoking Status Comment Dena ity Oct 14, 2022 08:30 AM VA-TOBACCO NEVER USED [facility] Tobacco Use History This section includes a history of the smoking, or tobacco-related health factors, that were collected on or before the date of the Encounter. The data comes from the [place] facility where the Encounter took place. Date/Time Smoking Status/Tobacco Use Comment F acaga Oct 07, 2021 03:00 PM VA-TOBACCO NEVER USED [place] [facility] [place] [facility] Sep 26, 2020 09:00 AM VA-TOBACCO NEVER USED [place] [facility] [place] [facility] Aug 14, 2019 02:17 PM VA-TOBACCO NEVER USED [place] [facility] [place] [facility] Jun 14, 2018 10:41 AM VA-TOBACCO NEVER USED [place] [facility] [place] [facility] Mar 30, 2017 09:18 AM LIFETIME NON-TOBACCO USER [place] [facility] [place] [facility] Dec 26, 2015 09:53 AM LIFETIME NON-TOBACCO USER [place] [facility] Advance Directives: All historical and current Section Date Range: From patient's date of to the date document was created. This section includes ALL of a patient's completed or amended [place] Advance and Rescinded Directives. The entries below indicate that a directive exists for the patient, but an actual copy is not included with this document. The data comes from all [place] facilities. Date Advance Directives Provider Source Feb 18, 2020 ADVANCE DIRECTIVE FERCHO DE LA CRUZ [facility] Encounter Notes: All associated encounter notes This section contains the clinical notes associated to the Encounter. Date/Time Encounter Note(s) Provider Source Dec 20, 2023 08:00 AM C & P EXAMINATION NOTE: LOCAL TITLE: COMPENSATION AND PENSION EXAM STANDARD TITLE: C & P EXAMINATION NOTE DATE OF NOTE: DEC 20, 2023@08:00 ENTRY DATE: DEC 20, 2023@09:20:24 AUTHOR: GEORGE SALDANA COSIGNER: URGENCY: STATUS: COMPLETED Hearing Loss and Tinnitus Disability Benefits Questionnaire Name of patient/: JUAN CARLOS NATALI JORDAN Is this DBQ being completed in conjunction with a VA [id number], C&P Examination Request? [X] Yes [ ] No How was the examination completed? (check all that apply) [X] In-person examination [X] Records reviewed [ ] Examination via approved video telehealth [ ] Other, please specify in comments box Comments: JAIME and Evidence Review Indicate method used to obtain medical information to complete this document: [ ] Review of available records (without in-person or video telehealth examination) using the Acceptable Clinical Evidence (JAIME) process because the existing medical evidence provided sufficient information on which to prepare the questionnaire and such an examination will likely provide no additional relevant evidence. [ ] Review of available records in conjunction with an interview with the (without in-person or telehealth examination) using the JAIME process because the existing medical evidence supplemented with an interview provided sufficient information on which to prepare the questionnaire and such an examination would likely provide no additional relevant evidence. Evidence Review Evidence reviewed (check all that apply): [X] [place] electronic health record [X] [place] e-folder This exam is for: Hearing loss and/or tinnitus (ceo, performing current exam) SECTION 1: HEARING LOSS (HL) --- 1. Objective Findings a. Puretone thresholds in decibels (air conduction): RIGHT EAR + + A B C D E F G ========+========+======= =+========+========+====== ==+========+========+ 500 1000 2000 3000 4000 6000 8000 Avg Hz Hz* Hz Hz Hz Hz Hz Hz (B-E) ========+========+======= =+========+========+====== ==+========+======== 60 60 70 65 70 95 [id number] + + LEFT EAR + + A B C D E F G ========+========+======= =+========+========+====== ==+========+========+ 500 1000 2000 3000 4000 6000 8000 Avg Hz Hz* Hz Hz Hz Hz Hz Hz (B-E) ========+========+======= =+========+========+====== ==+========+======== 55 65 90 90 100 105+ 105+ [id number] + + * The puretone threshold at 500 Hz is not used in determining the evaluation but is used in determining whether or not a ratable hearing loss exists. The average of B, C, D, and E. CNT - Could Not Test b. Were there one or more frequency(ies) that could not be tested: No c. Validity of puretone test results: Test results are valid for rating purposes. d. Speech Discrimination Score ([facility] word list): + + RIGHT EAR 74% +========= LEFT EAR 34% + + e. Appropriateness of Use of Word Recognition Score ([place] word list): Right Ear: Is Word Discrimination Score available? Yes Word Discrimination Score appropriateness: Use of speech recognition score is appropriate for this . Left Ear: Is Word Discrimination Score available? Yes Word Discrimination Score appropriateness: Use of word recognition score is appropriate for this Narka. f. Audiologic Findings Summary of Immittance (Tympanometry) Findings: + + RIGHT EAR LEFT EAR +=== += Acoustic immittance [X] Normal [ ] Abnormal [X] Normal [ ] Abnormal +=== += Ipsilateral Acoustic Reflexes [ ] Normal [X] Abnormal [ ] Normal [X] Abnormal +=== += Contralateral Acoustic Reflexes [ ] Normal [X] Abnormal [ ] Normal [X] Abnormal +=== += Unable to interpret reflexes due to [ ] [ ] artifact +=== += Unable to obtain/ maintain seal [ ] [ ] + + 2. Diagnosis RIGHT EAR --------- [ ] Normal hearing [ ] Conductive hearing loss ICD code: [ ] Mixed hearing loss ICD code: [X] Sensorineural hearing loss (in the frequency range of 500-4000 Hz)* ICD code: H90.3 [ ] Sensorineural hearing loss (in the frequency range of 6000 Hz or higher frequencies) ICD code: [ ] Significant changes in hearing thresholds in service LEFT EAR -------- [ ] Normal hearing [ ] Conductive hearing loss ICD code: [ ] Mixed hearing loss ICD code: [X] Sensorineural hearing loss (in the frequency range of 500-4000 Hz)* ICD code: H90.3 [ ] Sensorineural hearing loss (in the frequency range of 6000 Hz or higher frequencies) ICD code: [ ] Significant changes in hearing thresholds in service NOTES: * The may have hearing loss at a level that is not considered to be a disability for VA purposes. This can occur when the auditory thresholds are greater than 25 dB at one or more frequencies in the 500-4000 Hz range. The Narka may have impaired hearing, but it does not meet the criteria to be considered a disability for VA purposes. For VA purposes, the diagnosis of hearing impairment is based upon testing at frequency ranges of 500, 1000, 2000, 3000, and 4000 Hz. If there is no HL in the 500-4000 Hz range, but there is HL above 4000 Hz, check this box. The may have a significant change in hearing threshold in service, but it does not meet the criteria to be considered a disability for VA purposes. (A significant change in hearing threshold may indicate noise exposure or acoustic trauma.) 3. Etiology [X] Etiology opinion not indicated as: [X] Service connected condition 4. Functional impact of hearing loss Does the Narka's hearing loss impact ordinary conditions of daily life, including ability to work: Yes If yes, describe impact in the Narka's own words: Narka reports, I am not hearing as well with my hearing aids. 5. Remarks, if any, pertaining to hearing loss: No response provided SECTION 2: TINNITUS 1. Medical history Does the Narka report recurrent tinnitus: No 2. Etiology of tinnitus [X] Etiology opinion not indicated as: [X] Service connected condition 3. Functional impact of tinnitus ------ Does the Narka's tinnitus impact ordinary conditions of daily life, including ability to work: No response provided 4. Remarks, if any, pertaining to tinnitus: denied tinnitus today when asked if he gets any noises in his ears (ringing, buzzing, hissing, humming, chirping, etc.) NOTE: [place] may request additional medical information, including additional examinations if necessary to complete [place]'s review of the [place]'s application. /maciel/ Lb Macias CCC-A Enchilada Maker Signed: 12/20/2023 09:20 GEORGE SALDANA [place] [facility] [place] [facility]
--- OUTSIDE RECORDS SUMMARY | 2024-09-17 09:58 | XMS_ITS ---
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 Name Role Phone KEVIN BOLAÑOS Primary Care Provider Unavaila ble Insurance [...] Name Patient's Relationship to Policy Pete [facility] (WNR) MEDICARE ADVANTAGE MCR ([facility]) Jul 18, 2019 [id number] OCHOA RANGEL PATIENT [facility] (WNR) MEDICARE ADVANTAGE MCR (WNR) Jul 18, 2019 [id number] JUA NCARLOS,OCHOA JAQUELINE PATIENT [facility] (WNR) MEDICARE ADVANTAGE MCR (WNR) Jul 18, 2019 [id number] [phone] JUAN CARLOSOCHOA DENTONWilliam PATIENT [facility] (WNR) MEDICARE ADVANTAGE MCR (WNR) Jul 18, 2017 [id number] OCHOA RANGEL PATIENT Selected Encounter This section includes the information on record at [place] for the Encounter. Date/Time Encounter Type Encounter Description Reason Pro vider Source May 17, 2024 05:42 PM Outpatient Encounter ADMIN PAT ACTIVTIES (MASNONCT) IHE Encounter Template Text not used by [place] Plan of Treatment: Future Appointments (+ 6 months) and Future Tests (+/- 45 days) The Plan of Treatment section includes future care activities for the patient from all [place] [facility] This section includes future appointments and future orders which are active, pending or scheduled. Future Appointments This section includes appointments that were scheduled to occur 6 months from the date of the Encounter, up to a maximum of 20 appointments. The data comes from all [facility]. Appointment Date/Time Appointment Type Appointme nt Facility Name Jun 08, 2024 01:00 PM AMBULATORY - REHAB MEDICIN E [facility] Jun 22, 2024 08:30 AM AMBULATORY - REHAB MEDICIN E [facility] Jun 22, 2024 09:30 AM AMBULATORY - MEDICINE [facility] Sep 11, 2024 11:00 AM AMBULATORY - REHAB MEDICIN E [facility] Active, Pending, and Scheduled Orders This section includes a listing of several types of active, pending, and scheduled orders, including clinic medications orders, diagnostic test orders, procedure orders and consult orders; where the start date of the order is 45 days before the date of the Encounter or 45 days after the date of theEncounter. The data comes from all [facility]. Test Date/Time Test Type Test Details Facility Name Jun 08, 2024 12:00 AM Laboratory - Chemi stry Order BASIC METABOLIC PANEL (non-fasting) BLOOD (S[facility]SERUM[facility] Jun 08, 2024 12:00 AM Laboratory - Chemi stry Order LIPID PANEL, NON FASTING BLOOD (SST-SERUM) [facility] Jun 08, 2024 12:00 AM Laboratory - Chemi stry Order CBC BLOOD (LAV-BLOOD) [facility] Jun 08, 2024 12:00 AM Laboratory - Chemi stry Order LIVER FUNCTION BLOOD (SST-SERUM) [facility] Jun 08, 2024 12:00 AM Laboratory - Chemi stry Order PT & INR (PROTIME) BLOOD (BLUE-PLASMA) [facility] [place] [facility] [place] [facility] Social History: Smoking Status (Most current) and Tobacco Use (All prior to encounter date) This section includes the most current, and the historical, smoking and tobacco- related health factors from the [place] facility where the Encounter took place. Current Smoking Status This section includes the most current smoking, or tobacco-related health factor, from the [place] facility where the Encounter took place. Date/Time Current Smoking Status Comment Facil ity Dec 21, 2023 10:00 AM VA-TOBACCO [facility] Tobacco Use History This section includes a history of the smoking, or tobacco-related health factors, that were collected on or before the date of the Encounter. The data comes from the [place] facility where the Encounter took place. Date/Time Smoking Status/Tobacco Use Comment F acility Oct 14, 2022 08:30 AM VA-TOBACCO [facility] Oct 07, 2021 03:00 PM VA-TOBACCO [facility] [place] [facility] Sep 26, 2020 09:00 AM VA-TOBACCO [facility] USED [facility] [place] [facility] Aug 14, 2019 02:17 PM VA-TOBACCO NEVER USED [place] [facility] [facility] Jun 14, 2018 10:41 AM VA-TOBACCO NEVER USED [place] [facility] Mar 30, 2017 09:18 AM LIFETIME NON-TOBACCO USER [facility] [place] [facility] Dec 26, 2015 09:53 AM LIFETIME NON-TOBACCO USER [facility] Advance Directives: All historical and current Section Date Range: From patient's date of to the date document was created. This section includes ALL of a patient's completed or amended [place] Advance and Rescinded Directives. The entries below indicate that a directive exists for the patient, but an actual copy is not included with this document. The data comes from all [place] facilities. Date Advance Directives Provider Source Feb 18, 2020 ADVANCE DIRECTIVE FERCHO DE LA CRUZ [facility] Encounter Notes: All associated encounter notes This section contains the clinical notes associated to the Encounter. Date/Time Encounter Note(s) Provider Source May 17, 2024 05:42 PM PHARMACY NOTE: LOCAL TITLE: V1 PHARMACY CUSTOMER CARE MEDICATION RENEWAL STANDARD TITLE: PHARMACY NOTE DATE OF NOTE: MAY 17, 2024@17:42 ENTRY DATE: MAY 17, 2024@17:42:59 AUTHOR: MARISA JENKINS COSIGNER: URGENCY: STATUS: COMPLETED Date: Apr Division: [facility] referred by Pharmacy Call Center for medication renewal: Non-controlled/maintenance medication Medications requested: [id number] APIXABAN 2.5MG TAB Defer to primary care provider To be mailed . Please review and renew if appropriate. *This note was generated by [facility] Pharmacy Customer Care. If you have any questions or need assistance, do not contact this author. Please refer all questions to your local, on-site pharmacy departments. /maciel/ MARISA JENKINS [facility] Signed: 05/17/2024 17:43 Receipt Acknowledged By: 05/18/2024 06:42 /es/ Kevin Bolaños DNP, [employer] SPECIALIST-BC, CNL Primary Care Nurse Practitioner 05/18/2024 12:06 /maciel/ LIDIA RAMIREZ REGISTERED NURSE for MARISA BOURNE CNTRL [facility]
--- OUTSIDE RECORDS SUMMARY | 2024-09-17 09:58 | XMS_ITS ---
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 Name Role Phone KEVIN BOLAÑOS Primary Care [...] Name Patient's Relationship to Policy Pete GARRETT [facility] (WNR) MEDICARE ADVANTAGE MCR (R) Jul 18, 2019 [id number] OCHOA RANGEL PATIENT [facility] (WNR) MEDICARE ADVANTAGE MCR (WNR) Jul 18, 2019 [id number] JUAN CARLOS,OCHOA JAQUELINE PATIENT [facility] (WNR) MEDICARE ADVANTAGE MCR (WNR) Jul 18, 2019 [id number] JUAN CARLOSOCHOA JAQUELINE PATIENT [facility] (WNR) MEDICARE ADVANTAGE MCR (WNR) Jul 18, 2017 [id number] OCHOA RANGEL PATIENT Selected Encounter This section includes the information on record at [place] for the Encounter. Date/Time Encounter Type Encounter Description Reason Pro vider Source Aug 23, 2024 05:49 PM Outpatient Encounter ADMIN PAT ACTIVTIES (MASNONCT) IHE Encounter Template Text not used by [place] Plan of Treatment: Future Appointments (+ 6 months) and Future Tests (+/- 45 days) The Plan of Treatment section includes future care activities for the [facility] This section includes future appointments and future orders which are active, pending or scheduled. Future Appointments This section includes appointments that were scheduled to occur 6 months from the date of the Encounter, up to a maximum of 20 appointments. The data comes from all [place] treatment facilities. Appointment Date/Time Appointment Type Appointme nt Facility Name Sep 11, 2024 11:00 AM AMBULATORY - [facility] [place] [facility] Dec 21, 2024 08:30 AM [facility]AT[facility] MED[facility] [place] [facility] Social History: Smoking Status (Most current) and Tobacco Use (All prior to encounter date) This section includes the most current, and the historical, smoking and tobacco- related health factors from the [place] facility where the Encounter took place. Current Smoking Status This section includes the most current smoking, or tobacco-related health factor, from the [facility] facility where the Encounter took place. Date/Time Current Smoking Status Comment Facil ity Dec 21, 2023 10:00 AM VA-TOBACCO NEVER USED [facility] [place] [facility] Tobacco Use History This section includes a history of the smoking, or tobacco-related health factors, that were collected on or before the date of the Encounter. The data comes from the [place] facility where the Encounter took place. Date/Time Smoking Status/Tobacco Use Comment F acility Oct 14, 2022 08:30 AM VA-TOBACCO NEVER USED [facility] [place] [facility] Oct 07, 2021 03:00 PM VA-TOBACCO NEVER USED [facility] [place] [facility] Sep 26, 2020 09:00 AM VA-TOBACCO NEVER USED [facility] [place] [facility] Aug 14, 2019 02:17 PM VA-TOBACCO NEVER USED [facility] [place] [facility] Jun 14, 2018 10:41 AM VA-TOBACCO NEVER USED [facility] [place] [facility] Mar 30, 2017 09:18 AM LIFETIME NON-TOBACCO USER [facility] [place] [facility] Dec 26, 2015 09:53 AM LIFETIME NON-TOBACCO USER [facility] Advance Directives: All historical and current Section [...] 2020 ADVANCE DIRECTIVE FERCHO DE LA CRUZ [facility] Encounter Notes: All associated encounter notes This section contains the clinical notes associated to the Encounter. Date/Time Encounter Note(s) Provider Source Aug 23, 2024 05:49 PM PHARMACY NOTE: LOCAL TITLE: PHARMACY CUSTOMER CARE MEDICATION RENEWAL STANDARD TITLE: PHARMACY NOTE DATE OF NOTE: AUG 23, 2024@17:49 ENTRY DATE: AUG 23, 2024@17:49:32 AUTHOR: ANIA ANGEL EXP COSIGNER: URGENCY: STATUS: COMPLETED Date: Aug Division: [place] Pt referred by Pharmacy Call Center for medication renewal: Non-controlled/maintenanc e medication Medications requested: [id number] ALBUTEROL 3/IPRATROP 0.5MG/3ML INHL 3ML This medication is discontinued per the medication profile, however the [place] requested to fill it through the [place]. The can be reached at [phone] to discuss if needed. Please review. Defer to primary care provider To be mailed . Please review and renew if appropriate. *This note was generated by [facility]/[place] [facility] Customer Care. If you have any questions or need assistance, do not contact this author. Please refer all questions to your local, on-site pharmacy departments. /maciel/ ANIA ANGEL CPhT ADMINISTRATOR [place], [place]/PHARMACY CUSTOMER CARE Signed: 08/23/2024 17:49 Receipt Acknowledged By: 08/24/2024 07:29 /es/ Kevin Bolaños DNP, CONSULTING SERVICES MANAGER-BC, CNL Primary Care Nurse Practitioner 08/24/2024 08:41 /es/ Jovita Underwood MSN RN CNL Primary Care RN ANIA ANGEL [facility]
--- OUTSIDE RECORDS SUMMARY | 2024-09-17 09:58 | XMS_ITS | Continuity of Care Document ---
Author Name [facility] Organization [facility] Care Team Providers Care Cobol Engineer Name Role Phone [facility] Unavailable Unavailable Problems Combined list of problems from Department of Defense and Veterans Affairs facilities. It does not include entries that were removed or entered in error. Problem Status Onset Date Problem Type Date of Resolution Comments Source Polycystic kidney disease, adult type Active 07/18/19 13 Condition Mar 30, 2017 Entered By: SEEMA FONSECA Comment: followed by Dr. Zimmer, administrative services officer - 05/07/16 retroperitoneal stable dominant left upper pole cyst 8.8 cm [facility] Abdominal aortic aneurysm Active Condition [facility] Asthma Active Condition [facility] Celiac disease Active Condition [facility] Cramp Active Condition [facility] Deep venous thrombosis Active Condition Sep 26, 2020 Entered By: PAMELA RADFORD Comment: LEFT LEGSep 2021 Entered By: PAMELA RADFORD Comment: s/p stent [facility] Essential hypertension Active Condition [facility] Hearing loss Active Condition [facility]stitial lung disease Active Condition [facility] Long-term current use of anticoagulant Active Condition [facility] Pain in right knee Active Condition [facility] Pulmonary embolism Active Condition [facility] Diagnosis: ICD-10-CM Z46.1 Encounter for fitting and adjustment of hearing aid Active Diagnosis [facility] Diagnosis: ICD-10-CM J84.115 Respiratory bronchiolitis interstitial lung disease Active Diagnosis [facility] Diagnosis: ICD-10-CM 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 Medication Details Route Status Patient Instructions Prescription Expires Prescription Number Last Dispense Date Ordering Provider Order Date Order Qty Source ALBUTEROL 90MCG/ACTUA T (CFC-F) INHL,ORAL,8 .5GM DOSE COUNTER INHALE 2 PUFFS BY MOUTH EVERY 4 HOURS NEEDED FOR BRONCHOS PASM RESPIR ATORY (INHAL ATION) ACTIVE 06/23/2025 [id number] PAMELA RADFORD 2023 1 [facility] ALBUTEROL SO4 0.083% INHL,3ML INHALE 1 AMPULE IN NEBULIZE R EVERY 4 HOURS NEEDED FOR BREATHIN G RESPIR ATORY (INHAL ATION) DISCONT INUED BY PROVIDE R 08/18/2024 [id number] PAMELA RADFORD 2023 90 [facility] ALBUTEROL SO4 3MG/IPRATRO PIUM BR 0.5MG/3ML INHL,3ML INHALE 1 VIAL (3ML) IN NEBULIZE R EVERY 6 HOURS NEEDED FOR BRONCHOS PASM RESPIR ATORY (INHAL ATION) ACTIVE 08/25/2025 [id number] 5 PAMELA RADFORD 2024 360 [facility] ALBUTEROL SO4 3MG/IPRATRO PIUM BR 0.5MG/3ML INHL,3ML INHALE 1 VIAL (3ML) IN NEBULIZE R EVERY 6 HOURS NEEDED FOR BRONCHOS PASM RESPIR ATORY (INHAL ATION) DISCONT INUED BY PROVIDE R 09/02/2024 [id number] 4 PAMELA RADFORD 2023 360 [facility] AMLODIPINE BESYLATE 2.5MG TAB TAKE THREE TABLETS BY MOUTH DAILY ORAL ACTIVE SA GEOFF FONSECA A 2016 [facility] APIXABAN 2.5MG TAB TAKE ONE TABLET BY MOUTH TWICE DAILY FOR PREVENTI ON OF BLOOD CLOTS NOTE TABLET STRENGTH AND DIRECTIO NS ORAL ACTIVE 05/19/2025 [id number] 5 PAMELA RADFORD 2023 120 [facility] APIXABAN 2.5MG TAB TAKE ONE TABLET BY MOUTH TWICE DAILY FOR PREVENTI ON OF BLOOD CLOTS NOTE TABLET STRENGTH AND DIRECTIO NS ORAL DISCONT INUED 05/03/2024 [id number] 4 PAMELA RADFORD 2022 120 [facility] ASPIRIN 81MG TAB,EC TAKE ONE TABLET BY MOUTH ONCE DAILY ORAL ACTIVE SANA TESFAYE RISTINE F 2019 [facility] CITALOPRAM HYDROBROMID E 40MG TAB TAKE ONE-HALF TABLET BY MOUTH DAILY ORAL ACTIVE Shelia CHE 2015 [facility] COENZYME Q10 CAP/TAB TAKE BY MOUTH ONCE DAILY ORAL ACTIVE SANA TESFAYE F 2019 [facility] CYANOCOBALA MIN 1000MCG TAB TAKE TWO TABLETS BY MOUTH ONCE DAILY ORAL ACTIVE PAMELA RADFORD 2020 [facility] FLUTICASONE 500MCG/SALM ETEROL 50MCG INHL,ORAL,D ISKUS,60 INHALE 1 PUFF BY MOUTH TWICE DAILY - RINSE MOUTH AFTER USE RESPIR ATORY (INHAL ATION) ACTIVE 06/23/2025 [id number] 5 PAMELA RADFORD 2023 1 [facility] FLUTICASONE 500MCG/SALM ETEROL 50MCG INHL,ORAL,D ISKUS,60 INHALE 1 PUFF BY MOUTH TWICE DAILY - RINSE MOUTH AFTER USE RESPIR ATORY (INHAL ATION) DISCONT INUED 06/27/2024 [id number] PAMELA RADFORD 2022 1 [facility] LACTULOSE 10GM/15ML SOLN,ORAL TAKE 15 ML (1 TABLESPO ON) BY MOUTH ONCE DAILY ORAL ACTIVE SANA TESFAYE F 2019 [facility] LORAZEPAM 1MG TAB TAKE ONE TABLET BY MOUTH ONCE DAILY NEEDED ORAL ACTIVE SANA TESFAYE F 2019 [facility] MONTELUKAST NA 10MG TAB TAKE ONE TABLET BY MOUTH DAILY ORAL ACTIVE Shelia CHE 2015 [facility] OMEPRAZOLE 20MG CAP,EC TAKE TWO CAPSULES BY MOUTH EVERY MORNING 30 MINUTES BEFORE BREAKFAS T ORAL ACTIVE 05/19/2025 [id number] 4 PAMELA RADFORD 2023 180 [facility] OMEPRAZOLE 20MG CAP,EC TAKE TWO CAPSULES BY MOUTH EVERY MORNING 30 MINUTES BEFORE BREAKFAS T ORAL DISCONT INUED 06/27/2024 [id number] PAMELA RADFORD 2022 180 [facility] OTHER CAP/TAB TAKE OLMASART AN/MEDOX OMIL BY MOUTH DIRECTED ORAL ACTIVE PAMELA RADFORD 2022 [facility] OXYGEN MISCELLANEO US USE OXYGEN DIRECTED HS NOT APPLIC ABLE ACTIVE PAMELA RADFORD 2020 [facility] POLYETHYLEN E GLYCOL 3350 PWDR,ORAL TAKE 17 GRAMS (1 CAPFUL) BY MOUTH THREE TIMES A DAY NEEDED ORAL ACTIVE SANA TESFAYE F 2019 [facility] SIMVASTATIN 80MG TAB TAKE ONE-HALF TABLET BY MOUTH ONCE DAILY ORAL ACTIVE SANA TESFAYE F 2019 [facility] TIOTROPIUM 2.5MCG/ACTU AT INHL,ORAL,6 0D,4GM INHALE 2 PUFFS BY MOUTH ONCE DAILY FOR BRONCHOS PASM PREVENTI ON WITH COPD RESPIR ATORY (INHAL ATION) ACTIVE 05/19/2025 [id number] 5 PAMELA RADFORD 2024 3 [facility] TIOTROPIUM 2.5MCG/ACTU AT INHL,ORAL,6 0D,4GM INHALE 2 PUFFS BY MOUTH ONCE DAILY FOR BRONCHOS PASM PREVENTI ON WITH COPD RESPIR ATORY (INHAL ATION) DISCONT INUED 08/18/2024 [id number] PAMELA RADFORD 2023 3 [facility] Allergies, Adverse Reactions, Alerts Combined list of allergies from Department of Defense and Veterans Affairs facilities. It does not include entries that were removed or entered in error. Substance Category Reaction Severity Reaction type Status Date Reported Comments Source GABAPENTIN Propensity to adverse reactions to drug (finding) active 1 [facility] Immunizations Combined list of available immunizations from the Department of Defense and Veterans Affairs facilities. Immunization Series Date Given Administered By Site Reaction Lot Number CVX Code Drug Central Processing Tech Status Comments Source INFLUENZA, UNSPECIFIED FORMULATION 2023 88 complet ed per statement from vet [facility] INFLUENZA, UNSPECIFIED FORMULATION 2022 88 complet ed [facility] TD(ADULT) UNSPECIFIED FORMULATION 2021 139 complet ed [facility] COVID-19 (PFIZER), MRNA, LNP-S, PF, 30 MCG/0.3 ML DOSE 3 2020 208 complet ed [facility] COVID-19 (PFIZER), MRNA, LNP-S, PF, 30 MCG/0.3 ML DOSE 2 2020 208 complet ed [facility] COVID-19 (PFIZER), MRNA, LNP-S, PF, 30 MCG/0.3 ML DOSE 1 2020 208 complet ed [facility] INFLUENZA, TRIVALENT, ADJUVANTED 2019 168 complet ed Site: Left Deltoid [facility] ZOSTER RECOMBINANT 2 2019 187 complet ed [facility] ZOSTER RECOMBINANT 1 2019 187 complet ed [facility] INFLUENZA, SEASONAL, INJECTABLE 2018 141 complet ed [facility] INFLUENZA, HIGH DOSE SEASONAL 2018 135 complet ed Partner: [facility]. Administe red by: JUNIOR GUERRERO (GHQ=[phone]). Partner 34 Lot#: [id number] Mfr: Sanofi Pasteur; Dosage: 0.5 [facility] PNEUMOCOCCAL CONJUGATE PCV 13 2012 133 complet ed scanned [facility] TD(ADULT) UNSPECIFIED FORMULATION [address] Tapia outside pcp [facility] ZOSTER (HISTORICAL) 2010 121 complet ed [facility] DTAP, UNSPECIFIED FORMULATION 2007 107 complet ed scanned [facility] PNEUMOCOCCAL POLYSACCHARID E PPV23 2004 33 complet ed scanned [facility] Results Combined list of recent chemistry, hematology and other laboratory results from Department of Defense and Veterans Affairs, ranging from 15 months to all on record, depending upon the facility. Order Name Results Value Reference Range Date Interpretation Specimen Comments Source CBC LEUKOCYTES [#/VOLUME] IN BLOOD BY AUTOMATED COUNT 7.63 10*3/u L 4.50 - 11.00 12/20 Specimen Type: BLOOD No comment entered. Ordering Provider: DAMION RADFORD Report Released Date/Time: December 07, 2023 02:55 PM Reporting Lab: [facility] [place] [facility] [address] [facility] [address] Performing Lab: [facility] [place] [facility] [address] [facility] [address] [facility] CBC ERYTHROCYTE S [#/VOLUME] IN BLOOD BY AUTOMATED COUNT 4.98 10*6/u L 4.23 - 5.66 12/20 Specimen Type: BLOOD No comment entered. Ordering Provider: DAMION RADFORD Report Released Date/Time: December 07, 2023 02:55 PM Reporting Lab: [facility] [place] [facility] [address] [facility] [address] Performing Lab: [facility] [place] [facility] [address] [facility] [address] [facility] CBC HEMOGLOBIN [MASS/VOLUM E] IN BLOOD 14.0 g/dL 12.8 - 17 12/20 Specimen Type: BLOOD No comment entered. Ordering Provider: DAMION RADFORD Report Released Date/Time: December 07, 2023 02:55 PM Reporting Lab: [facility] [place] [address] [address] Performing Lab: [facility] [place] [address] [address] [facility] [place] [facility] CBC HEMATOCRIT [VOLUME FRACTION] OF BLOOD BY AUTOMATED COUNT 42.5 39.2 - 50.4 12/20 Specimen Type: BLOOD No comment entered. Ordering Provider: DAMION RADFORD Report Released Date/Time: December 07, 2023 02:55 PM Reporting Lab: [facility] [place] [address] [address] Performing Lab: [facility] [place] [address] [address] [facility] [place] [facility] CBC MCV [ENTITIC VOLUME] BY AUTOMATED COUNT 85.3 fL 82 - 99 12/20 Specimen Type: BLOOD No comment entered. Ordering Provider: DAMION RADFORD Report Released Date/Time: December 07, 2023 02:55 PM Reporting Lab: [facility] [place] [address] [address] Performing Lab: [facility] [place] [address] [address] [facility] [facility] CBC MCHC [MASS/VOLUM E] BY AUTOMATED COUNT 32.9 g/dL 30.8 - 35.1 12/20 Specimen Type: BLOOD No comment entered. Ordering Provider: DAMION RADFORD Report Released Date/Time: December 07, 2023 02:55 PM Reporting Lab: [facility] [address] [facility] [address] Performing Lab: [facility] [place] [facility] [address] [facility] [address] [facility] [facility] CBC PLATELETS [#/VOLUME] IN BLOOD BY AUTOMATED COUNT 237 10*3/u L 140 - 360 12/20 Specimen Type: BLOOD No comment entered. Ordering Provider: DAMION RADFORD Report Released Date/Time: December 07, 2023 02:55 PM Reporting Lab: [facility] [place] [address] [address] Performing Lab: [facility] [place] [address] [address] [facility] [place] [facility] CBC ERYTHROCYTE DISTRIBUTIO N WIDTH [RATIO] BY AUTOMATED COUNT 14.1 12.0 - 16.0 12/20 Specimen Type: BLOOD No comment entered. Ordering Provider: DAMION RADFORD Report Released Date/Time: December 07, 2023 02:55 PM Reporting Lab: [facility] [place] [address] [address] Performing Lab: [facility] [place] [address] [address] [facility] [place] [facility] CBC MCH [ENTITIC MASS] BY AUTOMATED COUNT 28.1 pg 26.2 - 32.6 12/20 Specimen Type: BLOOD No comment entered. Ordering Provider: DAMION RADFORD Report Released Date/Time: December 07, 2023 02:55 PM Reporting Lab: [facility] [place] [address] [address] Performing Lab: [facility] [place] [facility] [address] [facility] [address] [facility] LIPID PANEL, NON FASTING CHOLESTEROL [MASS/VOLUM E] IN SERUM OR PLASMA 147 mg/dL 12/20 Specimen Type: SERUM No comment entered. Ordering Provider: DAMION RADFORD Report Released Date/Time: December 07, 2023 02:55 PM Reporting Lab: [facility] [place] [facility] [address] [facility] [address] Performing Lab: [facility] [address] [facility] [facility] [address] [facility] LIPID PANEL, NON FASTING TRIGLYCERID E [MASS/VOLUM E] IN SERUM OR PLASMA 76 mg/dL 0 - 150 12/20 Specimen Type: SERUM No comment entered. Ordering Provider: DAMION RADFORD Report Released Date/Time: December 07, 2023 02:55 PM Reporting Lab: [facility] [place] [facility] [address] [facility] [address] Performing Lab: [facility] [address] [facility] [facility] [address] [facility] LIPID PANEL, NON FASTING CHOLESTEROL IN LDL [MASS/VOLUM E] IN SERUM OR PLASMA BY CALCULATION 78 mg/dL 0 - 129 12/20 Specimen Type: SERUM No comment entered. Ordering Provider: DAMION RADFORD Report Released Date/Time: December 07, 2023 02:55 PM Reporting Lab: [facility] [place] [facility] [address] [facility] [facility] [address] Performing Lab: [facility] [address] [address] [facility] LIPID PANEL, NON FASTING CHOLESTEROL .TOTAL/CHOL ESTEROL IN HDL [MASS RATIO] IN SERUM OR PLASMA 2.7 12/20 Specimen Type: SERUM No comment entered. Ordering Provider: DAMION RADFORD Report Released Date/Time: December 07, 2023 02:55 PM Reporting Lab: [facility] [place] [facility] [address] [facility] [address] Performing Lab: [facility] [place] [facility] [address] [facility] [facility] [address] [facility] LIPID PANEL, NON FASTING CHOLESTEROL IN HDL [MASS/VOLUM E] IN SERUM OR PLASMA 54 mg/dL 40 - 60 12/20 Specimen Type: SERUM No comment entered. Ordering Provider: DAMION RADFORD Report Released Date/Time: December 07, 2023 02:55 PM Reporting Lab: [facility] [place] [facility] [address] [facility] [address] Performing Lab: [facility] [address] [facility] [facility] [address] [facility] BASIC METABOLIC PANEL (non-fast ing) UREA NITROGEN [MASS/VOLUM E] IN SERUM OR PLASMA 21 mg/dL 7 - 25 12/20 Specimen Type: SERUM No comment entered. Ordering Provider: DAMION RADFORD Report Released Date/Time: December 07, 2023 02:55 PM Reporting Lab: [facility] [place] [facility] [address] [facility] [address] Performing Lab: [facility] [address] [facility] [facility] [address] [facility]ERR[facility]TRN [facility] BASIC METABOLIC PANEL (non-fast ing) GLUCOSE [MASS/VOLUM E] IN SERUM OR PLASMA 121 mg/dL 65 - 100 12/20 H Specimen Type: SERUM No comment entered. Ordering Provider: DAMION RADFORD Report Released Date/Time: December 07, 2023 02:55 PM Reporting Lab: [facility] [place] [facility] [address] [facility] [address] Performing Lab: [facility] [address] [facility] [address] [facility]ENTERR[facility] E[facility]TRN [facility] BASIC METABOLIC PANEL (non-fast ing) SODIUM [MOLES/VOLU ME] IN SERUM OR PLASMA 142 mmol/L 135 - 145 12/20 Specimen Type: SERUM No comment entered. Ordering Provider: DAMION RADFORD Report Released Date/Time: December 07, 2023 02:55 PM Reporting Lab: [facility] [place] [facility] [address] [facility] [address] Performing Lab: [facility] [place] [facility] [address] [facility] [facility] [address] [facility] [place] [facility] BASIC METABOLIC PANEL (non-fast ing) POTASSIUM [MOLES/VOLU ME] IN SERUM OR PLASMA 4.6 mmol/L 3.5 - 5.0 12/20 Specimen Type: SERUM No comment entered. Ordering Provider: DAMION RADFORD Report Released Date/Time: December 07, 2023 02:55 PM Reporting Lab: [facility] [place] [address] [address] Performing Lab: [facility] [address] [address] [facility] BASIC METABOLIC PANEL (non-fast ing) CHLORIDE [MOLES/VOLU ME] IN SERUM OR PLASMA 110 mmol/L 100 - 110 12/20 Specimen Type: SERUM No comment entered. Ordering Provider: DAMION RADFORD Report Released Date/Time: December 07, 2023 02:55 PM Reporting Lab: [facility] [place] [address] [address] Performing Lab: [facility] [place] [facility] [address] [facility] [address] [facility] [place] [facility] BASIC METABOLIC PANEL (non-fast ing) CARBON DIOXIDE, TOTAL [MOLES/VOLU ME] IN SERUM OR PLASMA 25 meq/L 20 - 30 12/20 Specimen Type: SERUM No comment entered. Ordering Provider: DAMION RADFORD Report Released Date/Time: December 07, 2023 02:55 PM Reporting Lab: [facility] [place] [address] [address] Performing Lab: [facility] [place] [address] [address] [facility] BASIC METABOLIC PANEL (non-fast ing) CREATININE [MASS/VOLUM E] IN SERUM OR PLASMA 1.12 mg/dL 0.50 - 1.40 12/20 Specimen Type: SERUM No comment entered. Ordering Provider: DAMION RADFORD Report Released Date/Time: December 07, 2023 02:55 PM Reporting Lab: [facility]ONN [facility] [address] [facility] [address] Performing Lab: [facility]N [facility] [address] [facility] [address] [facility] BASIC METABOLIC PANEL (non-fast ing) GLOMERULAR FILTRATION RATE/1.73 SQ M.PREDICTED [VOLUME RATE/AREA] IN SERUM, PLASMA OR BLOOD BY CREATININE- BASED FORMULA (CKD-EPI 2020) 64 mL/min 60 12/20 Specimen Type: SERUM No comment entered. Ordering Provider: DAMION RADFORD Report Released Date/Time: December 07, 2023 02:55 PM Reporting Lab: [facility] [address] Performing Lab: [facility]ONN [facility] [phone] [place] [address] LIVER FUNCTION PROTEIN [MASS/VOLUM E] IN SERUM OR PLASMA 6.1 g/dL 6.0 - 8.3 12/20 Specimen Type: SERUM No comment entered. Ordering Provider: DAMION RADFORD Report Released Date/Time: December 07, 2023 02:55 PM Reporting Lab: [facility]ON[facility] [address] Performing Lab: [facility]ONN [facility] [address] [facility] LIVER FUNCTION ALBUMIN [MASS/VOLUM E] IN SERUM OR PLASMA 3.3 g/dL 3.5 - 5.0 12/20 L Specimen Type: SERUM No comment entered. Ordering Provider: DAMION RADFORD Report Released Date/Time: December 07, 2023 02:55 PM Reporting Lab: [facility] [place] [facility] [address] [facility] [address] Performing Lab: [facility] [place] [facility] [address] [facility] [address] [facility] [place] [facility] LIVER FUNCTION ALKALINE PHOSPHATASE [ENZYMATIC ACTIVITY/VO LUME] IN SERUM OR PLASMA 64 U/L 40 - 150 12/20 Specimen Type: SERUM No comment entered. Ordering Provider: DAMION RADFORD Report Released Date/Time: December 07, 2023 02:55 PM Reporting Lab: [facility] [place] [facility] [address] [facility] [address] Performing Lab: [facility] [address] [facility] [address] [facility] LIVER FUNCTION ASPARTATE AMINOTRANSF ERASE [ENZYMATIC ACTIVITY/VO LUME] IN SERUM OR PLASMA 12 U/L 5 - 34 12/20 Specimen Type: SERUM No comment entered. Ordering Provider: DAMION RADFORD Report Released Date/Time: December 07, 2023 02:55 PM Reporting Lab: [facility] [address] [facility] [address] Performing Lab: [facility] [address] [facility] [address] [facility] LIVER FUNCTION ALANINE AMINOTRANSF ERASE [ENZYMATIC ACTIVITY/VO LUME] IN SERUM OR PLASMA 13 U/L 12/20 Specimen Type: SERUM No comment entered. Ordering Provider: DAMION RADFORD Report Released Date/Time: December 07, 2023 02:55 PM Reporting Lab: [facility] [address] [facility] [address] Performing Lab: [facility] [address] [facility] [address] [facility] LIVER FUNCTION BILIRUBIN.T OTAL [MASS/VOLUM E] IN SERUM OR PLASMA 0.4 mg/dL 0.2 - 1.2 06/05 /2024 Specimen Type: SERUM No comment entered. Ordering Provider: DAMION RADFORD Report Released Date/Time: December 07, 2023 02:55 PM Reporting Lab: [facility] [place] [facility] [address] [facility] [address] Performing Lab: [facility] [address] [address] [facility] [place] [facility] PT & INR (PROTIME) INR IN PLATELET POOR PLASMA BY COAGULATION ASSAY 1.1 12/20 Specimen Type: PLASMA No comment entered. Ordering Provider: DAMION RADFORD Report Released Date/Time: December 07, 2023 02:55 PM Reporting Lab: [facility] [place] [address] [address] Performing Lab: [facility] [address] [address] [facility] [place] [facility] PT & INR (PROTIME) PROTHROMBIN TIME (PT) 12.6 s 10.0 - 13.1 12/20 Specimen Type: PLASMA No comment entered. Ordering Provider: DAMION RADFORD Report Released Date/Time: December 07, 2023 02:55 PM Reporting Lab: [facility] [place] [address] [address] Performing Lab: [facility] [place] [address] [address] [facility] [place] [facility] THYROID T4 FREE(FT4) THYROXINE (T4) FREE [MASS/VOLUM E] IN SERUM OR PLASMA 0.85 ng/dL 0.6 - 1.6 04/11 Specimen Type: SERUM No comment entered. Ordering Provider: DAMION RADFORD Report Released Date/Time: Mar 31, 2023 02:14 PM Reporting Lab: [facility] [place] [facility] [address] [facility] [address] Performing Lab: [facility] [place] [facility] [address] [facility] [address] [facility] [place] [facility] PT & INR (PROTIME) INR IN PLATELET POOR PLASMA BY COAGULATION ASSAY 1.0 04/11 Specimen Type: PLASMA No comment entered. Ordering Provider: DAMION RADFORD Report Released Date/Time: Mar 31, 2023 02:14 PM Reporting Lab: [facility] [place] [address] [address] Performing Lab: [facility] [place] [address] [address] [facility] [place] [facility] PT & INR (PROTIME) PROTHROMBIN TIME (PT) 11.6 s 10.0 - 13.1 04/11 Specimen Type: PLASMA No comment entered. Ordering Provider: DAMION RADFORD Report Released Date/Time: Mar 31, 2023 02:14 PM Reporting Lab: [facility] [address] Performing Lab: [facility] [place] [address] [address] [facility] [place] [facility] TSH THYROTROPIN [UNITS/VOLU ME] IN SERUM OR PLASMA 2.58 u[IU]/ mL 0.35 - 5.00 04/11 Specimen Type: SERUM No comment entered. Ordering Provider: DAMION RADFORD Report Released Date/Time: Mar 31, 2023 02:14 PM Reporting Lab: [facility] [place] [address] [address] Performing Lab: [facility] [place] [address] [address] [facility] [place] [facility] CBC LEUKOCYTES [#/VOLUME] IN BLOOD BY AUTOMATED COUNT 9.67 10*3/u L 4.50 - 11.00 04/11 Specimen Type: BLOOD No comment entered. Ordering Provider: DAMION RADFORD Report Released Date/Time: Mar 31, 2023 02:14 PM Reporting Lab: [facility] [place] [address] [address] Performing Lab: [facility] [place] [facility] [address] [facility] [address] [facility] [place] [facility] CBC ERYTHROCYTE S [#/VOLUME] IN BLOOD BY AUTOMATED COUNT 4.73 10*6/u L 4.23 - 5.66 04/11 Specimen Type: BLOOD No comment entered. Ordering Provider: DAMION RADFORD Report Released Date/Time: Mar 31, 2023 02:14 PM Reporting Lab: [facility] [place] [facility] [address] [facility] [address] Performing Lab: [facility] [place] [facility] [address] [facility] [address] [facility] [place] [facility] CBC HEMOGLOBIN [MASS/VOLUM E] IN BLOOD 13.7 g/dL 12.8 - 17 04/11 Specimen Type: BLOOD No comment entered. Ordering Provider: DAMION RADFORD Report Released Date/Time: Mar 31, 2023 02:14 PM Reporting Lab: [facility] [place] [facility] [address] [facility] [address] Performing Lab: [facility] [place] [address] [address] [facility] [place] [facility] CBC HEMATOCRIT [VOLUME FRACTION] OF BLOOD BY AUTOMATED COUNT 42.1 39.2 - 50.4 04/11 Specimen Type: BLOOD No comment entered. Ordering Provider: DAMION RADFORD Report Released Date/Time: Mar 31, 2023 02:14 PM Reporting Lab: [facility] [place] [facility] [address] [facility] [address] Performing Lab: [facility] [place] [address] [address] [facility] [place] [facility] CBC MCV [ENTITIC VOLUME] BY AUTOMATED COUNT 89.0 fL 82 - 99 04/11 Specimen Type: BLOOD No comment entered. Ordering Provider: DAMION RADFORD Report Released Date/Time: Mar 31, 2023 02:14 PM Reporting Lab: [facility] [place] [facility] [address] [facility] [address] Performing Lab: [facility] [place] [facility] [address] [facility] [address] [facility] [place] [facility] CBC MCHC [MASS/VOLUM E] BY AUTOMATED COUNT 32.5 g/dL 30.8 - 35.1 04/11 Specimen Type: BLOOD No comment entered. Ordering Provider: DAMION RADFORD Report Released Date/Time: Mar 31, 2023 02:14 PM Reporting Lab: [facility] [place] [facility] [address] [facility] [address] Performing Lab: [facility] [place] [facility] [address] [facility] [address] [facility] [place] [facility] CBC PLATELETS [#/VOLUME] IN BLOOD BY AUTOMATED COUNT 175 10*3/u L 140 - 360 04/11 Specimen Type: BLOOD No comment entered. Ordering Provider: DAMION RADFORD Report Released Date/Time: Mar 31, 2023 02:14 PM Reporting Lab: [facility] [place] [facility] [address] [facility] [address] Performing Lab: [facility] [place] [facility] [address] [facility] [address] [facility] [place] [facility] CBC ERYTHROCYTE DISTRIBUTIO N WIDTH [RATIO] BY AUTOMATED COUNT 13.4 12.0 - 16.0 04/11 Specimen Type: BLOOD No comment entered. Ordering Provider: DAMION RADFORD Report Released Date/Time: Mar 31, 2023 02:14 PM Reporting Lab: [facility] [place] [facility] [address] [facility] [address] Performing Lab: [facility] [place] [facility] [address] [facility] [address] [facility] [place] [facility] CBC MCH [ENTITIC MASS] BY AUTOMATED COUNT 29.0 pg 26.2 - 32.6 04/11 Specimen Type: BLOOD No comment entered. Ordering Provider: DAMION RADFORD Report Released Date/Time: Mar 31, 2023 02:14 PM Reporting Lab: [facility] [place] [facility] [address] [facility] [address] Performing Lab: [facility] [place] [facility] [address] [facility] [address] [facility] [place] [facility] BASIC METABOLIC PANEL (fasting) UREA NITROGEN [MASS/VOLUM E] IN SERUM OR PLASMA 20 mg/dL 7 - 25 04/11 Specimen Type: SERUM No comment entered. Ordering Provider: DAMION RADFORD Report Released Date/Time: Mar 31, 2023 02:14 PM Reporting Lab: [facility] [place] [facility] [address] [facility] [address] Performing Lab: [facility] [place] [address] [address] [facility] BASIC METABOLIC PANEL (fasting) GLUCOSE [MASS/VOLUM E] IN SERUM OR PLASMA 101 mg/dL 65 - 100 04/11 H Specimen Type: SERUM No comment entered. Ordering Provider: DAMION RADFORD Report Released Date/Time: Mar 31, 2023 02:14 PM Reporting Lab: [facility] [place] [address] [address] Performing Lab: [facility] [place] [facility] [address] [facility] [address] [facility] BASIC METABOLIC PANEL (fasting) SODIUM [MOLES/VOLU ME] IN SERUM OR PLASMA 143 mmol/L 135 - 145 04/11 Specimen Type: SERUM No comment entered. Ordering Provider: DAMION RADFORD Report Released Date/Time: Mar 31, 2023 02:14 PM Reporting Lab: [facility] [place] [facility] [address] [facility] [address] Performing Lab: [facility] [place] [facility] [address] [facility] [address] [facility] [place] [facility] BASIC METABOLIC PANEL (fasting) POTASSIUM [MOLES/VOLU ME] IN SERUM OR PLASMA 3.9 mmol/L 3.5 - 5.0 04/11 Specimen Type: SERUM No comment entered. Ordering Provider: DAMION RADFORD Report Released Date/Time: Mar 31, 2023 02:14 PM Reporting Lab: [facility] [place] [facility] [address] [facility] [address] Performing Lab: [facility] [address] [address] [facility] BASIC METABOLIC PANEL (fasting) CHLORIDE [MOLES/VOLU ME] IN SERUM OR PLASMA 107 mmol/L 100 - 110 04/11 Specimen Type: SERUM No comment entered. Ordering Provider: DAMION RADFORD Report Released Date/Time: Mar 31, 2023 02:14 PM Reporting Lab: [facility] [address] [address] Performing Lab: [facility] [address] [facility] BASIC METABOLIC PANEL (fasting) CARBON DIOXIDE, TOTAL [MOLES/VOLU ME] IN SERUM OR PLASMA 26 meq/L 20 - 30 04/11 Specimen Type: SERUM No comment entered. Ordering Provider: DAMION RADFORD Report Released Date/Time: Mar 31, 2023 02:14 PM Reporting Lab: [facility] [place] [address] [address] Performing Lab: [facility] [address] [address] [facility] BASIC METABOLIC PANEL (fasting) CREATININE [MASS/VOLUM E] IN SERUM OR PLASMA 1.16 mg/dL 0.50 - 1.40 04/11 Specimen Type: SERUM No comment entered. Ordering Provider: DAMION RADFORD Report Released Date/Time: Mar 31, 2023 02:14 PM Reporting Lab: [facility] [place] [address] [address] Performing Lab: [facility] [address] [address] [facility] [place] [facility] BASIC METABOLIC PANEL (fasting) GLOMERULAR FILTRATION RATE/1.73 SQ M.PREDICTED [VOLUME RATE/AREA] IN SERUM, PLASMA OR BLOOD BY CREATININE- BASED FORMULA (CKD-EPI 2020) 62 mL/min 60 04/11 Specimen Type: SERUM No comment entered. Ordering Provider: DAMION RADFORD Report Released Date/Time: Mar 31, 2023 02:14 PM Reporting Lab: [facility] [place] [facility] [address] [facility] [address] Performing Lab: [facility] [place] [facility] [address] [facility] [address] [facility] [place] [facility] Vital Signs Combined list of inpatient and outpatient Vital Signs from Department of Defense and Veterans Affairs, ranging from 12 months to all on record, depending upon the facility. Vital Sign Value Date Comments Source SYSTOLIC BLOOD PRESSURE 130 06/22/20 24 09:04:01 [facility] [place] [facility] DIASTOLIC BLOOD PRESSURE 80 024 09:04:01 [facility] [place] [facility] PULSE OXIMETRY 95 06/22/2024 09:04:01 [facility] [place] [facility] WEIGHT 148 06/22/2024 09:04:01 [facility] [place] [facility] BMI 25 kg/m2 06/22/2024 09:04:01 [facility] [place] [facility] PAIN 0 06/22/2024 09:04:01 [facility] [place] [facility] HEIGHT 64 06/22/2024 09:04:01 [facility] [place] [facility] TEMPERATURE 97.3 06/22/2024 09:04:01 [facility] [place] [facility] PULSE 50 06/22/2024 09:04:01 [facility] [place] [facility] RESPIRATION 20 06/22/2024 09:04:01 [facility] [place] [facility] SYSTOLIC BLOOD PRESSURE 136 12/21/19 24 09:48:03 [facility] [place] [facility] DIASTOLIC BLOOD PRESSURE 76 024 09:48:03 [facility] [place] [facility] PULSE OXIMETRY 95 12/21/2023 09:48:03 [facility] [place] [facility] WEIGHT 144 12/21/2023 09:48:03 [facility] [place] [facility] BMI 25 kg/m2 12/21/2023 09:48:03 [facility] [place] [facility] PAIN 0 12/21/2023 09:48:03 [facility] [place] [facility] HEIGHT 64 12/21/2023 09:48:03 [facility] [place] [facility] TEMPERATURE 97.6 12/21/2023 09:48:03 [facility] [place] [facility] PULSE 50 12/21/2023 09:48:03 [facility] [place] [facility] RESPIRATION 20 12/21/2023 09:48:03 [facility] [place] [facility] Encounters Combined list of: 1) Encounters from Department of Veterans Affairs facilities going backup to the last 18 months, not all VA inpatient encounters are included; 2) Encounters from the Department of Defense facilities going backup to 280 months. Location Location Details Encounter Type Encounter Number Reason For Visit Attending Provider ADM Date DC Date Status Disposition Source [facility] [place] [facility] Encounter [id number] 04/08 [facility] [place] En[facility] [id number] 04/15 [facility] [id number] 04/20 [facility] [place] [place] En[facility] [id number] 05/02 [facility] [place] HEARING AID REPAIR/MOD IFYING [id number] Diagnos is: ICD-10- CM Z46.1 Encount er for fitting and adjustm ent of hearing aid HEMA JENKINS 06/02 [facility] OFFICE O/P EST LOW 20-29 MIN [id number] Diagnos is: ICD-10- CM Z79.01 FCI () use of anticoa Robert Trammell 06/27 [facility] [place] Out[facility] Encounter [id number] 08/16 [facility] [place] Encounter [id number] 09/02 [facility] [place] Out[facility] Encounter [id number] Diagnos is: ICD-10- CM Z02.89 Encount er for other adminis trative examina ABDELRAHMAN Jean-Baptiste L 12/19 [facility] [place] HEARING AID REPAIR/MOD IFYING [id number] Diagnos is: ICD-10- CM H90.3 Sensori neural hearing loss, bilater al ABDELRAHMAN SALDANA L 12/19 [facility] OFFICE O/P EST LOW 20 MIN [id number] Diagnos is: ICD-10- CM Z79.01 FCI () use of anticoa Robert Trammell 12/20 [facility] [place] CONFORMITY EVALUATION [id number] Diagnos is: ICD-10- CM Z46.1 Encount er for fitting and adjustm ent of hearing aid ELISA KNIGHT 01/15 [facility] HEARING AID REPAIR/MOD IFYING [id number] Diagnos is: ICD-10- CM Z46.1 Encount er for fitting and adjustm ent of hearing aid ELISA KNIGHT L 03/05 [facility] Out[facility] Encounter [id number] 04/26 [facility] [place] Encounter [id number] 05/17 [facility] [place] [place] [facility] HEARING AID FITTING/CH ECKING [id number] 1. Diagnos is: ICD-10- CM Z46.1 Encount er for fitting and adjustm ent of hearing aid ELISA KNIGHT 06/08 [facility] [place] [place] [facility] HEARING AID REPAIR/MOD IFYING [id number] 1. Diagnos is: ICD-10- CM Z46.1 Encount er for fitting and adjustm ent of hearing aid JESUS LYNCH 06/22 [facility] [place] [facility] OFFICE O/P EST MOD 30 MIN [id number] 1. 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 tory bronchi olitis interst itial lung disease Robert RADFORD 06/22 [facility] Out[facility] Encounter [id number] 08/23 [facility] [place] [place] [facility] HEARING AID REPAIR/MOD IFYING [id number] Diagnos is: ICD-10- CM Z46.1 Encount er for fitting and adjustm ent of hearing aid JESUS LYNCH 09/11 [facility] [place] [facility] Social History Combined list of available smoking, tobacco, and other social history from Department of Defense and Veterans Affairs facilities. Social History Type Response Date Comment Sour e Tobacco smoking status NHIS VA-TOBACCO NEVER USED 12/21/2023 [facility] [place] [facility] History of tobacco use VT-TOBACCO NEVER USED 10/14/2022 [facility] [place] [facility] History of tobacco use VT-TOBACCO NEVER USED 10/07/2021 [facility] [place] [facility] History of tobacco use VT-TOBACCO NEVER USED 09/26/2020 [facility] [place] [facility] History of tobacco use VT-TOBACCO NEVER USED 08/14/2019 [facility] [place] [facility] History of tobacco use VT-TOBACCO NEVER USED 06/14/2018 [facility] [place] [facility] History of tobacco use LIFETIME NON-TOBACCO USER 03/30/2017 [facility] [place] [facility] History of tobacco use LIFETIME NON-TOBACCO USER 12/26/2015 [facility] [place] [facility] Plan of Care List of future care activities from [facility] facilities. Additional future care activities may be listed in the Assessment and Plan section. Date/Time Care Activity Care Activity Detail Facili ty 12/21/2024 AMBULATORY - MEDICINE AMBULATORY - MEDICI NE [facility] Advance Directives List of completed, amended, or rescinded Advance Directives on record at [facility] facilities. An actual copy of the Directive is not included. Date Advance Directive Provider Source 02/18/2020 ADVANCE DIRECTIVE FERCHO DE LA CRUZ [facility]
--- OUTSIDE RECORDS SUMMARY | 2024-09-17 09:58 | XMS_ITS | Encounter Summary ---
Author Name [facility] [place] Organization [place] Address [address] [place] [address] Care Team Providers Care Heating Worker Name Role Phone PAMELA BOLAÑOS Primary Care [...] Name Patient's Relationship to Policy Pete GARRETT [facility] ([facility]) MEDICARE ADVANTAGE MCR ([facility]) Jul 18, 2019 [id number] OCHOA RANGEL PATIENT [facility] (WNR) MEDICARE ADVANTAGE MCR ([facility]) Jul 18, 2019 [id number] OCHOA RANGEL PATIENT [facility] (WNR) MEDICARE ADVANTAGE MCR (WNR) Jul 18, 2019 [id number] [phone] JUAN CARLOSOCHOA DENTONWilliam PATIENT [facility] (WN) MEDICARE ADVANTAGE MCR ([facility]) Jul 18, 2017 [id number] OCHOA RANGEL PATIENT Selected Encounter This section includes the information on record at [place] for the Encounter. 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 Date/Time Primary/Secondary Diagnosis Diagnosis Name Provider Source Jul 01, 2024 03:03 PM PRIMARY Respiratory bronchiolitis interstitial lung disease BOLAÑOS,WILL ROSS [facility] Jul 01, 2024 03:03 PM SECONDARY Acute embolism and thombos unsp deep vn unsp lower extremity BOLAÑOS,WILL ROSS [facility] Jul 01, 2024 03:03 PM SECONDARY Essential (primary) hypertension [facility] Jul 01, 2024 03:03 PM SECONDARY Personal history of pulmonary embolism BOLAÑOS,WILL [facility] Plan of Treatment: Future Appointments (+ 6 months) and Future Tests (+/- 45 days) The Plan of Treatment section includes future care activities for the patient from all [place] [facility]. This section includes future appointments and future orders which are active, pending or scheduled. Future Appointments This section includes appointments that were scheduled to occur 6 months from the date of the Encounter, up to a maximum of 20 appointments. The data comes from all [facility] facilities. Appointment Date/Time Appointment Type Appointme nt Facility Name Sep 11, 2024 11:00 AM AMBULATORY - REHAB MEDICIN E [facility] Dec 21, 2024 08:30 AM AMBULATORY - MEDICINE [facility] Active, Pending, and Scheduled Orders This section includes a listing of several types of active, pending, and scheduled orders, including clinic medications orders, diagnostic test orders, procedure orders and consult orders; where the start date of the order is 45 days before the date of the Encounter or 45 days after the date of theEncounter. The data comes from all [facility]. Test Date/Time Test Type Test Details Facility Name Jun 08, 2024 12:00 AM Laboratory - Chemi stry Order BASIC METABOLIC PANEL (non-fasting) BLOOD (SST[facility]SERUM) [facility] Jun 08, 2024 12:00 AM Laboratory - Chemi stry Order LIPID PANEL, NON FASTING BLOOD (SST-SERUM) [facility] [place] [facility] Jun 08, 2024 12:00 AM Laboratory - Chemi stry Order CBC BLOOD (LAV-BLOOD) [facility] [place] [facility] Jun 08, 2024 12:00 AM Laboratory - Chemi stry Order LIVER FUNCTION BLOOD (SST-SERUM) [facility] [place] [facility] Jun 08, 2024 12:00 AM Laboratory - Chemi stry Order PT & INR (PROTIME) BLOOD (BLUE-PLASMA) [facility] Vital Signs: All taken on the encounter date This section contains inpatient and outpatient Vital Signs collected on the date of the Encounter. Date/Time Temperature Pulse Blood Pressure Respiratory Rate SP02 Pain Height Weight Body Mass Index Source Jun 22, 2024 09:04 AM 97.3 50 130/80 20 95 0 64 148 25 [place] [facility] [place] [facility] Social History: Smoking Status (Most current) and Tobacco Use (All prior to encounter date) This section includes the most current, and the historical, smoking and tobacco- related health factors from the [place] facility where the Encounter took place. Current Smoking Status This section includes the most current smoking, or tobacco-related health factor, from the [place] facility where the Encounter took place. Date/Time Current Smoking Status Comment Facil ity Dec 21, 2023 10:00 AM VA-TOBACCO NEVER USED [facility] Tobacco Use History This section includes a history of the smoking, or tobacco-related health factors, that were collected on or before the date of the Encounter. The data comes from the [place] facility where the Encounter took place. Date/Time Smoking Status/Tobacco Use Comment F acility Oct 14, 2022 08:30 AM VA-TOBACCO NEVER USED [facility] [place] [facility] Oct 07, 2021 03:00 PM VA-TOBACCO NEVER USED [facility] [place] [facility] Sep 26, 2020 09:00 AM VA-TOBACCO NEVER USED [facility] [place] [facility] Aug 14, 2019 02:17 PM VA-TOBACCO NEVER USED [facility] [place] [facility] Jun 14, 2018 10:41 AM VA-TOBACCO NEVER USED [place] [facility] [place] [facility] Mar 30, 2017 09:18 AM LIFETIME NON-TOBACCO USER [place] [facility] [place] [facility] Dec 26, 2015 09:53 AM LIFETIME NON-TOBACCO USER [place] [facility] Advance Directives: All historical and current Section Date Range: From patient's date of to the date document was created. This section includes ALL of a patient's completed or amended [place] Advance and Rescinded Directives. The entries below indicate that a directive exists for the patient, but an actual copy is not included with this document. The data comes from all [place] facilities. Date Advance Directives Provider Source Feb 18, 2020 ADVANCE DIRECTIVE KIMBERLYFERCHO MARIAELENA Mckeon [facility] Encounter Notes: All associated encounter notes This section contains the clinical notes associated to the Encounter. Date/Time Encounter Note(s) Provider Source Jun 22, 2024 09:30 AM PRIMARY CARE NURSE PRACTITIONER OUTPATIENT NOTE: LOCAL TITLE: NURSE PRACTITIONER OUTPATIENT NOTE STANDARD TITLE: PRIMARY CARE NURSE PRACTITIONER OUTPATIENT NOTE DATE OF NOTE: JUN 22, 2024@09:30 ENTRY DATE: JUL 01, 2024@14:59:14 AUTHOR: PAMELA BOLAÑOS COSIGNER: URGENCY: STATUS: COMPLETED Chief complaint: Patient is a 84 year old [place]. HPI: Pleasant male [place] here with his to follow up. Allergies: GABAPENTIN The following VA and Non-VA meds were reconciled with patient. The patient was educated on the use of the medications including indication and side effects. Active and Recently Outpatient Medications (excluding Supplies): Active Outpatient Medications Status === 1) ALBUTEROL 90MCG (CFC-F) 200D ORAL INHL INHALE 2 PUFFS BY ACTIVE MOUTH EVERY 4 HOURS NEEDED Indication: FOR BRONCHOSPASM 2) APIXABAN 2.5MG TAB TAKE ONE TABLET BY MOUTH TWICE DAILY ACTIVE NOTE TABLET STRENGTH AND DIRECTIONS Indication: FOR PREVENTION OF BLOOD CLOTS 3) FLUTICAS 500/SALMETEROL 50 INHL DISK 60 INHALE 1 PUFF BY ACTIVE MOUTH TWICE DAILY - RINSE MOUTH AFTER USE 4) OMEPRAZOLE 20MG EC CAP TAKE TWO CAPSULES BY MOUTH EVERY ACTIVE MORNING 30 MINUTES BEFORE BREAKFAST Indication: FOR EXCESSIVE PRODUCTION OF STOMACH ACID 5) TIOTROPIUM 2.5MCG/ACTUAT 60D ORAL INHL INHALE 2 PUFFS BY ACTIVE (S) MOUTH ONCE DAILY Indication: FOR BRONCHOSPASM PREVENTION WITH COPD Active Non-VA Medications Status === 1) Non-VA AMLODIPINE BESYLATE 2.5MG TAB 7.5 MG BY MOUTH DAILY ACTIVE 2) Non-VA CITALOPRAM HYDROBROMIDE 40MG TAB 20MG BY MOUTH DAILY ACTIVE 3) Non-VA COENZYME Q10 CAP/TAB BY MOUTH ONCE DAILY ACTIVE 4) Non-VA CYANOCOBALAMIN 1000MCG TAB 2000MCG BY MOUTH ONCE ACTIVE DAILY 5) Non-VA LACTULOSE 10GM/15ML ORAL SOLN 15 ML (1 TABLESPOON) BY ACTIVE MOUTH ONCE DAILY 6) Non-VA LORAZEPAM 1MG TAB 1MG BY MOUTH ONCE DAILY NEEDED ACTIVE 7) Non-VA MONTELUKAST NA 10MG TAB 10MG BY MOUTH DAILY ACTIVE 8) Non-VA OTHER CAP/TAB OLMASARTAN/MEDOXOMIL BY MOUTH ACTIVE DIRECTED Indication: UNKNOWN 9) Non-VA OXYGEN MISCELLANEOUS OXYGEN DIRECTED AT BEDTIME ACTIVE 10) Non-VA POLYETHYLENE GLYCOL 3350 ORAL PWDR 17 GRAMS (1 ACTIVE CAPFUL) BY MOUTH THREE TIMES DAILY NEEDED 11) Non-VA SIMVASTATIN 80MG TAB 40MG BY MOUTH ONCE DAILY ACTIVE 16 Total Medications Review of Systems: Constitutional: (-)for Fevers, chills, weakness, nights sweats On examination: 97.3 F [36.3 C] (06/22/2024 09:04)130/80 (06/22/2024 09:04)50 (06/22/2024 09:04)20 (06/22/2024 09:04)0 (06/22/2024 09:04)BMI: 25.5148 lb [67.13 kg] (06/22/2024 09:04) [place] is alert and oriented X3 Eyes:No scleral icterus, lids normal, Pupils equal,round and reactive to light HEENT: External without scars, lesions or masses, TM's without erythema or perforations, Oropharynx without erythema or exudates or worrisome lesions Neck: supple without masses, trachea midline, ln not palpable, no thyromegaly Cardiovasc: 2plus carotids without bruits, no JVD [...] Problem List is the source for the following 1. Interstitial lung disease - see above, follows non va pulm, Dr Ferreira 2. Deep venous thrombosis - termite helper a/c 3. Polycystic kidney disease, adult type - labs today 4. Essential hypertension - well controlled Today I spent 30 minutes on some or all of the following: chart review, history, physical examination, treatment planning, education and counseling of the patient/family/pet care assistant, placing orders, communicating with other health care providers, and documentation in the electronic health record Follow up visit in 6 mos. Medication Reconciliation: Outpatient: Has the patient been taking medications as documented in the EMLR? YES: The patient has been taking medications as documented in the EMLR. Essential Medication List for Review used to complete this medication reconciliation. INCLUDED IN THIS LIST: Alphabetical list of active outpatient prescriptions dispensed from this VA (local) and dispensed from another VA or [...] next appointment, whether with a VA or non-[place] provider. /maciel/ Pamela Bolaños DNP, DRILL DOCTOR-BC, CNL Primary Care Nurse Practitioner Signed: 07/01/2024 15:03 P[facility]A BOLAÑOS [facility] Jun 22, 2024 09:09 AM PREVENTIVE MEDICINE NURSING NOTE: LOCAL TITLE: CLINICAL REMINDERS/NURSING STANDARD TITLE: PREVENTIVE MEDICINE NURSING NOTE DATE OF NOTE: JUN 22, 2024@09:09 ENTRY DATE: JUN 22, 2024@09:10:04 AUTHOR: JOSEPHINE CASTLE EXP COSIGNER: URGENCY: STATUS: COMPLETED CLINICAL REMINDERS/NURSING Has ADDENDA Advance Directive Screen MH AD: Patient has an Advance Directive on file at this [facility]. No updates are needed at this time. The patient received education about Advance Directives and written notification of his/her rights. RHS Screen: RHS Screen Session Format: Face to Face Environmental Check Screening was not completed at this time due to: Another adult present /neno [facility] Technican OBSTETRICIAN GYNECOLOGIST,PRIMARY CARE Signed: 06/22/2024 09:11 06/22/2024 ADDENDUM STATUS: COMPLETED Influenza Immunization: The patient has received the seasonal influenza vaccine for the current season at another location. Documented: INFLUENZA, UNSPECIFIED FORMULATION Historical Date Administered: Apr 26, 2024 Outside Location: Outside Healthcare Provider Information Source: FROM PATIENT'S RECALL Comment: per statement from vet /neno [facility] OBSTETRICIAN GYNECOLOGIST,PRIMARY CARE Signed: 06/22/2024 09:14 JOSEPHINE CASTLE [facility]
--- OUTSIDE RECORDS SUMMARY | 2024-09-17 09:58 | XMS_ITS ---
Author Name [place] Organization [place] Address [address] [place] [address] Care Team Providers Care Fire Regulator Name Role Phone PAMELA RADFORD Primary Care Provider Unavaila [facility] Insurance Providers: All historical and current Section [...] Name Patient's Relationship to Policy Pete GARRETT [facility] ([facility]) MEDICARE ADVANTAGE MCR ([facility]) Jul 18, 2019 [id number] JUAN CARLOSOCHOA JAQUELINE PATIENT [facility] ([place]NR) MEDICARE ADVANTAGE MCR (R) Jul 18, 2019 [id number] [phone] JUAN CARLOS,OCHOA JAQUELINE PATIENT [facility] (WNR) MEDICARE ADVANTAGE MCR (WNR) Jul 18, 2019 [id number] OCHOA RANGEL PATIENT [facility] (WN) MEDICARE ADVANTAGE MCR ([facility]) Jul 18, 2017 [id number] OCHOA RANGEL PATIENT Selected Encounter This section includes the information on record at [place] for the Encounter. Date/Time Encounter Type Encounter Description Reason Provider Source Mar 05, 2024 10:30 AM HEARING AID REPAIR/MODIFYIN G AUDIOLOGY ICD-10-CM Z46.1 Encounter for fitting and adjustment of hearing aid KRIS KNIGHT [place] Encounter Template Text not used by [place] Assessments - Encounter Diagnoses This section includes the primary and secondary diagnoses documented for the Encounter. Date/Time Primary/Secondary Diagnosis Diagnosis Name Provider Source Mar 05, 2024 11:05 AM PRIMARY Encounter for fitting and adjustment of hearing aid ISHAAN SHAH LILIA [facility] Mar 05, 2024 11:05 AM SECONDARY Sensorineural hearing loss, bilateral ISHAAN SHAH LILIA [facility] Plan of Treatment: Future Appointments (+ 6 months) and Future Tests (+/- 45 days) The Plan of Treatment section includes future care activities for the patient from all [place] [facility]. This section includes future appointments and future [...] 01:00 PM AMBULATORY - REHAB MEDICIN E [facility] Jun 22, 2024 08:30 AM [facility] Jun 22, 2024 09:30 AM AMBULATORY - MEDICINE [facility] Social History: Smoking Status (Most current) [...] 21, 2023 10:00 AM VA-TOBACCO NEVER USED [facility] Tobacco Use History This section includes a history of the smoking, or tobacco-related health factors, that were collected on or before the date of the Encounter. The data comes from the [place] facility where the Encounter took place. Date/Time Smoking Status/Tobacco Use Comment F acility Oct 14, 2022 08:30 AM VA-TOBACCO NEVER USED [facility] [place] [facility] Oct 07, 2021 03:00 PM VA-TOBACCO NEVER USED [facility] [place] [facility] Sep 26, 2020 09:00 AM VA-TOBACCO NEVER USED [facility] [place] [facility] Aug 14, 2019 02:17 PM VA-TOBACCO NEVER USED [facility] [place] [facility] Jun 14, 2018 10:41 AM VA-TOBACCO NEVER USED [facility] [place] [facility] Mar 30, 2017 09:18 AM LIFETIME NON-TOBACCO USER [facility] [place] [facility] Dec 26, 2015 09:53 AM LIFETIME NON-TOBACCO USER [facility] [place] [facility] Advance Directives: All historical and [...] Provider Source Feb 18, 2020 ADVANCE DIRECTIVE SANAMAYITOFERCHO SANTANA [facility] [place] [facility] Encounter Notes: All associated encounter notes This section contains the clinical notes associated to the Encounter. Date/Time Encounter Note(s) Provider Source Mar 05, 2024 07:52 AM AUDIOLOGY NOTE: LOCAL TITLE: AUDIOLOGY HEALTH HOUSEKEEPING AIDE STANDARD TITLE: AUDIOLOGY NOTE DATE OF NOTE: MAR 05, 2024@07:52 ENTRY DATE: MAR 05, 2024@07:52:30 AUTHOR: SEEMA SHAH EXP COSIGNER: KRIS KNIGHT URGENCY: STATUS: COMPLETED March 05, 2024 History/Background: [place] was seen for a hearing aid follow up, unaccompanied. [place] scheduled today's appointment reporting his hearing aids are not working and requesting new tubes. also reported feedback and volume too loud with the new hearing aids. came in today wearing his back up pair. Hearing aids: [employer]TE[employer] Serial Numbers: [id number] Battery size: 13 Date Issued: 01/16/2024 AND Hearing aids: Derek [employer] BTE[employer] Serial Numbers: [id number] Battery size: 13 Date Issued: 01/16/2021 Hearing aid check: Both sets of hearing aids were cleaned and checked. Replaced tubes, tonehooks and mary covers. Tubes were cut to length on Veterans ears. Biologic check was good for all 4 hearing aids. No feedback heard today in the clinic. was advised to wear the hearing aids for the week and if they are too loud or feedback returns he should contact the clinic to schedule an appointment with the Core Winding Operator for adjustments. Plan: [place] will contact the clinic for programming adjustments with an Core Winding Operator as needed. /maciel/ SEEMA SHAH [facility] Interior Block Wirer Signed: 03/05/2024 11:05 /YUMIKO Garay, CCC-A STAFF PUBLICATIONS SALES REPRESENTATIVE Cosigned: 03/05/2024 11:35 SEEMA SHAH [facility]
--- OUTSIDE RECORDS SUMMARY | 2024-09-17 09:58 | XMS_ITS | Encounter Summary ---
Author Name [facility] [place] [facility] [place] [facility] [place] Address [address] [place] [address] Care Team Providers Care Police Radio Dispatcher Name Role Phone PAMELA RADFORD Primary Care Provider [facility] Insurance Providers: All historical and [...] Name Patient's Relationship to Policy Pete GARRETT [facility] ([facility]) MEDICARE ADVANTAGE MCR ([facility]) Jul 18, 2019 [id number] [phone] JUAN CARLOS,OCHOA JAQUELINE PATIENT [facility] ([facility]) MEDICARE ADVANTAGE MCR ([facility]) Jul 18, 2019 [id number] JUAN CARLOS,OCHOA CORRIEWilliam PATIENT [facility] ([facility]) MEDICARE ADVANTAGE MCR (R) Jul 18, 2019 [id number] OCHOA RANGEL PATIENT [facility] ([facility]) MEDICARE ADVANTAGE MCR ([facility]) Jul 18, 2017 [id number] OCHOA RANGEL PATIENT Selected Encounter This section includes the information on record at [place] for the Encounter. Date/Time Encounter Type Encounter Description Reason Provider Source Jun 22, 2024 08:30 AM HEARING AID REPAIR/MODIFYIN G AUDIOLOGY ICD-10-CM Z46.1 Encounter for fitting and adjustment of hearing aid CHRISTEL LYNCH [place] Encounter Template Text not used by [place] Assessments - Encounter Diagnoses This section includes the primary and secondary diagnoses documented for the Encounter. Date/Time Primary/Secondary Diagnosis Diagnosis Name Provider Source Jun 22, 2024 08:54 AM PRIMARY Encounter for fitting and adjustment of hearing aid YANELY LYNCH [facility] Jun 22, 2024 08:54 AM SECONDARY Sensorineural hearing loss, bilateral YANELY LYNCH [facility] Plan of Treatment: Future Appointments (+ 6 months) and Future Tests (+/- 45 days) The Plan of Treatment section includes future care activities for the patient from all [place] [facility] This section includes future appointments and future orders which are active, pending or scheduled. Future Appointments This section includes appointments that were scheduled to occur 6 months from the date of the Encounter, up to a maximum of 20 appointments. The data comes from all [facility]. Appointment Date/Time Appointment Type Appointme nt Facility Name Sep 11, 2024 11:00 AM AMBULATORY - REHAB MEDICIN E [facility] Dec 21, 2024 08:30 AM AMBULATORY - MEDICINE [facility] Active, Pending, and Scheduled Orders This section includes a listing of several types of active, pending, and scheduled orders, including clinic medications orders, diagnostic test orders, procedure orders and consult orders; where the start date of the order is 45 days before the date of the Encounter or 45 days after the date of theEncounter. The data comes from all [facility]. Test Date/Time Test Type Test Details Facility Name Jun 08, 2024 12:00 AM Laboratory - Chemi stry Order CBC BLOOD (LAV-BLOOD) [facility] Jun 08, 2024 12:00 AM Laboratory - Chemi stry Order BASIC METABOLIC PANEL (non-fasting) BLOOD (SST-SERUM) [facility] Jun 08, 2024 12:00 AM Laboratory - Chemi stry Order LIPID PANEL, NON FASTING BLOOD (SST-SERUM) [facility] Jun 08, 2024 12:00 AM Laboratory - Chemi stry Order PT & INR (PROTIME) BLOOD (BLUE-PLASMA) [facility] Jun 08, 2024 12:00 AM Laboratory - Chemi stry Order LIVER FUNCTION BLOOD (SST-SERUM) [facility] [place] [facility] Vital Signs: All taken on the encounter date This section contains inpatient and outpatient Vital Signs collected on the date of the Encounter. Date/Time Temperature Pulse Blood Pressure Respiratory Rate SP02 Pain Height Weight Body Mass Index Source Jun 22, 2024 09:04 AM 97.3 50 130/80 20 95 0 64 148 25 [facility] Social History: Smoking Status (Most current) and Tobacco Use (All prior to encounter date) This section includes the most current, and the historical, smoking and tobacco- related health factors from the [place] facility where the Encounter took place. Current Smoking Status This section includes the most current smoking, or tobacco-related health factor, from the [place] facility where the Encounter took place. Date/Time Current Smoking Status Comment Facil ity Dec 21, 2023 10:00 AM VA-TOBACCO NEVER USED [facility] [place] Tobacco Use History This section includes a history of the smoking, or tobacco-related health factors, that were collected on or before the date of the Encounter. The data comes from the [place] facility where the Encounter took place. Date/Time Smoking Status/Tobacco Use Comment F acility Oct 14, 2022 08:30 AM VA-TOBACCO NEVER USED [facility] [place] Oct 07, 2021 03:00 PM VA-TOBACCO NEVER USED [facility] [place] [facility] Sep 26, 2020 09:00 AM VA-TOBACCO NEVER USED [facility] [place] [facility] Aug 14, 2019 02:17 PM VA-TOBACCO NEVER USED [facility] [place] Jun 14, 2018 10:41 AM VA-TOBACCO NEVER USED [facility] [place] Mar 30, 2017 09:18 AM LIFETIME NON-TOBACCO USER [facility] [place] Dec 26, 2015 09:53 AM LIFETIME NON-TOBACCO USER [facility] Advance Directives: All historical and current Section Date Range: From patient's date of to the date document was created. This section includes ALL of a patient's completed or amended [place] Advance and Rescinded Directives. The entries below indicate that a directive exists for the patient, but an actual copy is not included with this document. The data comes from all [place] facilities. Date Advance Directives Provider Source Feb 18, 2020 ADVANCE DIRECTIVE FERCHO DE LA CRUZ [facility] Encounter Notes: All associated encounter notes This section contains the clinical notes associated to the Encounter. Date/Time Encounter Note(s) Provider Source Jun 22, 2024 07:20 AM AUDIOLOGY E & M NOTE: LOCAL TITLE: AUDIOLOGY CLINIC STANDARD TITLE: AUDIOLOGY E & M NOTE DATE OF NOTE: JUN 22, 2024@07:20 ENTRY DATE: JUN 22, 2024@07:20:58 AUTHOR: CHRISTEL LYNCH COSIGNER: URGENCY: STATUS: COMPLETED Dx CODE: Z46.1-Encounter for Fitting/Adjusting Hearing Aid(s); H90.3- Sensorineural Hearing Loss, Bilateral APPOINTMENT TYPE: Hearing Aid Programming HISTORY/BACKGROUND: The patient was seen for a hearing aid follow-up appointment, accompanied by his . He was fit with Magnetic with [employer]v AI Power+ BTEs on 01/16/24. He was scheduled today to tow picker new earmolds. HEARING AID CHECK: [place]'s back up Derek Betito Edge AI BTEs (SN:[id number]) were cleaned and checked. Tubes and tone hooks replaced. The new earmold tubes were measured to size on 's ears. Fit of earmolds looked good bilaterally. HEARING AID PROGRAMMING: New hearing aids were connected to [employer] and a feedback test was completed. reported hearing aids sounded slightly loud, but was satisfied with sound quality. PLAN/RECOMMENDATION(S): 1. Follow up as needed. * Patient Education Education provided on the following topics: Hearing aids Education provided to: P, SO Response to Education: VU Mcgee Patient P Family F Significant Other SO Verbalizes Understanding VU Returns Demonstration RD Performs Independently PI Lacks Comprehension LC Refused Education RE Not Applicable NA * /maciel/ CHRISTEL LYNCH STAFF EEG TECHNICIAN Signed: 06/22/2024 08:55 CHRISTEL LYNCH [facility]
== END 2024-09-17 09:15 | disposition home or self-care (01) ==
LOC: HO.CT 09:14
PROVIDERS: PCP Internal Medicine; Visit Provider Hospitalist
DX: R91.8 Other nonspecific abnormal finding of lung field (principal)
CPT/HCPCS: 71250

== ENCOUNTER → 2024-09-17 09:15 | Outpatient (BNV) | payer MEDICARE, SELFPAY | PROVIDERS: PCP Internal Medicine; Visit Provider Radiology Diagnostic Radiology | DX: I71.21 Aneurysm of the ascending aorta, without rupture (principal); R91.8 Other nonspecific abnormal finding of lung field | CPT/HCPCS: 71250 ==

== ENCOUNTER 2024-10-11 09:58 | Outpatient (AMB) | payer MEDICARE, SELFPAY ==
[2024-10-11 10:02] VITALS: BP 110/68; PULSE 50; O2SAT 96; BMI 24.6
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
--- OUTSIDE RECORDS SUMMARY | 2024-10-11 12:25 | XMS_ITS ---
Author Name [place] Organization [place] Address [address] [place] [address] Care Team Providers Care Repairer Switchgear Name Role Phone PAMELA RADFORD Primary Care Provider Unavaila [facility] Insurance Providers: All historical and current [...] Name Patient's Relationship to Policy Pete [facility] ([facility]) MEDICARE ADVANTAGE MCR ([facility]) Jul 18, 2019 [id number] JUAN CARLOSOCHOA JAQUELINE PATIENT [facility] (WNR) MEDICARE ADVANTAGE MCR (R) Jul 18, 2019 [id number] JUAN CARLOS,OCHOA JAQUELINE PATIENT [facility] (WNR) MEDICARE ADVANTAGE MCR (WNR) Jul 18, 2019 [id number] [phone] OCHOA RANGEL PATIENT [facility] (WN) MEDICARE ADVANTAGE MCR ([facility]) Jul 18, 2017 [id number] OCHOA RANGEL PATIENT Selected Encounter This section includes the information on record at [place] for the Encounter. Date/Time Encounter Type Encounter Description Reason Provider Source Jun 08, 2024 01:00 PM HEARING AID FITTING/CHECKIN G AUDIOLOGY ICD-10-CM Z46.1 Encounter for fitting and adjustment of hearing aid KRIS KNIGHT [facility] Encounter Template Text not used by [place] Assessments - Encounter Diagnoses This section includes the primary and secondary diagnoses documented for the Encounter. Date/Time Primary/Secondary Diagnosis Diagnosis Name Provider Source Jun 08, 2024 04:52 PM PRIMARY Encounter for fitting and adjustment of hearing aid KRIS KNIGHT [facility] Jun 08, 2024 04:52 PM SECONDARY Sensorineural hearing loss, bilateral KRIS KNIGHT [facility] Plan of Treatment: Future Appointments (+ 6 months) and Future Tests (+/- 45 days) The Plan of Treatment section includes future care activities for the patient from all [place] [facility] This section includes future appointments and future orders which are active, pending or scheduled. Future Appointments This section includes appointments that were scheduled to occur 6 months from the date of the Encounter, up to a maximum of 20 appointments. The data comes from all [facility]. Appointment Date/Time Appointment Type Appointme nt Facility Name Jun 22, 2024 08:30 AM AMBULATORY - REHAB MEDICIN E [facility] Jun 22, 2024 09:30 AM AMBULATORY - MEDICINE [facility] Sep 11, 2024 11:00 AM AMBULATORY - REHAB MEDICIN E [facility] Active, Pending, and Scheduled Orders This section includes a listing of several types of active, pending, and scheduled orders, including clinic medications orders, diagnostic test orders, procedure orders and consult orders; where the start date of the order is 45 days before the date of the Encounter or 45 days after the date of theEncounter. The data comes from all [facility]. Test Date/Time Test Type Test Details Facility Name Jun 08, 2024 12:00 AM Laboratory - Chemi stry Order CBC BLOOD (LAV-BLOOD) [facility] Jun 08, 2024 12:00 AM Laboratory - Chemi stry Order LIPID PANEL, NON FASTING BLOOD (SST-SERUM) [facility] Jun 08, 2024 12:00 AM Laboratory - Chemi stry Order BASIC METABOLIC PANEL (non-fasting) BLOOD (SST-SERUM) [place] [facility] [place] [facility] Jun 08, 2024 12:00 AM Laboratory - Chemi stry Order PT & INR (PROTIME) BLOOD (BLUE-PLASMA) SP [place] [facility] [place] [facility] Jun 08, 2024 12:00 AM Laboratory - Chemi stry Order LIVER FUNCTION BLOOD (SST-SERUM) [facility] Social History: Smoking Status (Most current) and Tobacco Use (All prior to encounter date) This section includes the most current, and the historical, smoking and tobacco- related health factors from the [place] facility where the Encounter took place. Current Smoking Status This section includes the most current smoking, or tobacco-related health factor, from the [place] facility where the Encounter took place. Date/Time Current Smoking Status Comment Facil ity Dec 21, 2023 10:00 AM VA-TOBACCO NEVER USED [facility] Tobacco Use History This section includes a history of the smoking, or tobacco-related health factors, that were collected on or before the date of the Encounter. The data comes from the [place] facility where the Encounter took place. Date/Time Smoking Status/Tobacco Use Comment F acility Oct 14, 2022 08:30 AM VA-TOBACCO NEVER USED [facility] [place] [facility] Oct 07, 2021 03:00 PM VA-TOBACCO NEVER USED [facility] [place] [facility] Sep 26, 2020 09:00 AM VA-TOBACCO NEVER USED [facility] [place] [facility] Aug 14, 2019 02:17 PM VA-TOBACCO NEVER USED [facility] [place] [facility] Jun 14, 2018 10:41 AM VA-TOBACCO NEVER USED [facility] [place] [facility] Mar 30, 2017 09:18 AM LIFETIME NON-TOBACCO USER [facility] [place] [facility] Dec 26, 2015 09:53 AM LIFETIME NON-TOBACCO USER [place] [facility] [place] [facility] Advance Directives: All historical and current Section Date Range: From patient's date of to the date document was created. This section includes ALL of a patient's completed or amended VA Advance and Rescinded Directives. The entries below indicate that a directive exists for the patient, but an actual copy is not included with this document. The data comes from all [place] facilities. Date Advance Directives Provider Source Feb 18, 2020 ADVANCE DIRECTIVE FERCHO DE LA CRUZ [facility] Encounter Notes: All associated encounter notes [...] unaccompanied. He was fit on 01/16/24 with iPositionV AI POWER+ BTE 13s. He scheduled today's [...] MPO was increased overall by two steps. was advised that the venting is smaller [...] Education RE Not Applicable NA /YUMIKO Garay, [facility]-A STAFF CATERING COOK Signed: 06/08/2024 16:52 06/18/2024 ADDENDUM STATUS: COMPLETED Earmolds received and certified, left voicemail for the to contact the clinic. Need to schedule 30 min HAC/HT appointment for pharmacy picking tech and to assess the fit. Earmolds placed in the black cabinet. /maciel/ SEEMA SHAH [facility] Credit Portfolio Manager Signed: 06/18/2024 13:58 [facility]IS KNIGHT [facility]
--- OUTSIDE RECORDS SUMMARY | 2024-10-11 12:26 | XMS_ITS | Encounter Summary ---
Author Name [place] Address [address] [place] [id number] Care Team Providers Care Skein Drier Name Role Phone PAMELA RADFORD Primary Care [...] Patient's Relationship to Policy [facility] MEDICARE ADVANTAGE MCR ([facility]) Jul 18, 2019 [id number] OCHOA RANGEL PATIENT [facility] (WNR) MEDICARE ADVANTAGE MCR (R) Jul 18, 2019 [id number] [phone] JUAN CARLOS,OCHOA JAQUELINE PATIENT [facility] (WNR) MEDICARE ADVANTAGE MCR (WNR) Jul 18, 2019 [id number] [phone] OCHOA RANGEL PATIENT [facility] (WN) MEDICARE ADVANTAGE MCR ([facility]) Jul 18, 2017 [id number] JUAN CARLOSOCHOA [place] PATIENT Selected Encounter This section includes the information on record at [place] for the Encounter. Date/Time Encounter Type Encounter Description Reason Provider Source Dec 20, 2023 08:00 AM Outpatient Encounter AUDIOLOGY ICD-10-CM Z02.89 Encounter for other administrative examinations ANDREINA SALDANA E Encounter Template Text not used by [place] Assessments - Encounter Diagnoses This section includes the primary and secondary diagnoses documented for the Encounter. Date/Time Primary/Secondary Diagnosis Diagnosis Name Provider Source Dec 20, 2023 09:27 AM PRIMARY Encounter for other administrative examinations ANDREINA SALDANA [facility] Dec 20, 2023 09:27 AM SECONDARY Sensorineural hearing loss, bilateral ANDREINA SALDANA [facility] [place] [facility] Plan of Treatment: Future Appointments (+ 6 months) and Future Tests (+/- 45 days) The Plan of Treatment section includes future care activities for the patient from all [place] treatmentfacilities. This section includes future appointments and future orders which are active, pending or scheduled. Future Appointments This section includes appointments that were scheduled to occur 6 months from the date of the Encounter, up to a maximum of 20 appointments. The data comes from all [place] treatment facilities. Appointment Date/Time Appointment Type Appointme nt Facility Name Dec 21, 2023 10:00 AM AMBULATORY - MEDICINE [facility] [place] [facility] Jan 16, 2024 08:00 AM AMBULATORY - REHAB MEDICIN E [place] [facility] [place] [facility] Mar 05, 2024 10:30 AM AMBULATORY - [facility]AB MEDICIN E [facility] [place] [facility] Jun 08, 2024 01:00 PM AMBULATORY - REHAB MEDICIN E [facility] [place] [facility] Lab Results: +/- 30 days of the encounter This section includes the Chemistry and Hematology Lab Results on record with [place] for the patient. Radiology Reports and Pathology Reports are provided separately, in subsequent sections. Lab Results This section contains the Chemistry/Hematology Results that were resulted 30 days before or 30 daysafter the date of the Encounter. Date/Time Source Result Type Result - Unit Interpretation Reference Range Comment Dec 21, 2023 10:26 AM [facility] LIPID PANEL, NON FASTING Specimen Type: SERUM No comment entered. Ordering Provider: FLOR RADFORD Report Released Date/Time: December 07, 2023 02:55 PM Reporting Lab: [facility] [place] [facility] SSDUSE[address] [address] Performing Lab: [facility] [address] [address] CHOLESTEROL 147 mg/dL TRIGLYCERIDE 76 mg/dL 0-150 LDL calculated 78 mg/dL 0-129 CHOL/HDL 2.7 HDL CHOLESTEROL 54 mg/dL 40-60 Dec 21, 2023 10:26 AM [facility] CBC Specimen Type: BLOOD No comment entered. Ordering Provider: FLOR RADFORD Report Released Date/Time: December 07, 2023 02:55 PM Reporting Lab: [facility] [address] [address] Performing Lab: [address] [address] WBC 7.63 10*3/uL 4.50-11.00 RBC 4.98 10*6/uL 4.23-5.66 HGB 14.0 g/dL 12.8-17 HCT 42.5 39.2-50.4 MCV 85.3 fL 82-99 MCHC 32.9 g/dL 30.8-35.1 PLT 237 10*3/uL 140-360 RDW-CV 14.1 12.0-16.0 MCH 28.1 pg 26.2-32.6 Dec 21, 2023 10:26 AM [facility] BASIC METABOLIC PANEL (non-fasting) Specimen Type: SERUM No comment entered. Ordering Provider: FLOR RADFORD Report Released Date/Time: December 07, 2023 02:55 PM Reporting Lab: [address] [address] Performing Lab: [address] [address] UREA NITROGEN 21 mg/dL 7-25 GLUCOSE 121 mg/dL H 65-100 SODIUM 142 mmol/L 135-145 POTASSIUM 4.6 mmol/L 3.5-5.0 CHLORIDE 110 mmol/L 100-110 CO2 25 meq/L 20-30 CREATININE, Serum 1.12 mg/dL 0.50-1.40 eGFR(CKD-EPI 2020) 64 mL/min >60 Dec 21, 2023 10:26 AM [facility] PT & INR (PROTIME) Specimen Type: PLASMA No comment entered. Ordering Provider: FLOR RADFORD Report Released Date/Time: December 07, 2023 02:55 PM Reporting Lab: [address] [address] Performing Lab: [address] [address] INR 1.1 PROTIME 12.6 s 10.0-13.1 Dec 21, 2023 10:26 AM [facility] LIVER FUNCTION Specimen Type: SERUM No comment entered. Ordering Provider: FLOR RADFORD Report Released Date/Time: December 07, 2023 02:55 PM Reporting Lab: [address] [address] Performing Lab: [address] [address] PROTEIN,TOTAL 6.1 g/dL 6.0-8.3 ALBUMIN 3.3 g/dL L 3.5-5.0 ALKALINE PHOSPHATASE 64 U/L 40-150 AST 12 U/L 5-34 ALT 13 U/L BILIRUBIN, TOTAL 0.4 mg/dL 0.2-1.2 Social History: Smoking Status (Most current) and Tobacco Use (All prior to encounter date) This section includes the most current, and the historical, smoking and tobacco- related health factors from the [place] facility where the Encounter took place. Current Smoking Status This section includes the most current smoking, or tobacco-related health factor, from the [place] facility where the Encounter took place. Date/Time Current Smoking Status Comment Dena ity Oct 14, 2022 08:30 AM VA-TOBACCO NEVER USED [facility] Tobacco Use History This section includes a history of the smoking, or tobacco-related health factors, that were collected on or before the date of the Encounter. The data comes from the [place] facility where the Encounter took place. Date/Time Smoking Status/Tobacco Use Comment F acaga Oct 07, 2021 03:00 PM VA-TOBACCO NEVER USED [place] [facility] [place] [facility] Sep 26, 2020 09:00 AM VA-TOBACCO NEVER USED [place] [facility] [place] [facility] Aug 14, 2019 02:17 PM VA-TOBACCO NEVER USED [place] [facility] [place] [facility] Jun 14, 2018 10:41 AM VA-TOBACCO NEVER USED [place] [facility] [place] [facility] Mar 30, 2017 09:18 AM LIFETIME NON-TOBACCO USER [place] [facility] [place] [facility] Dec 26, 2015 09:53 AM LIFETIME NON-TOBACCO USER [place] [facility] [facility] Advance Directives: All historical and current Section Date Range: From patient's date of to the date document was created. This section includes ALL of a patient's completed or amended [place] Advance and Rescinded Directives. The entries below indicate that a directive exists for the patient, but an actual copy is not included with this document. The data comes from all [place] facilities. Date Advance Directives Provider Source Feb 18, 2020 ADVANCE DIRECTIVE FERCHO DE LA CRUZ CNTRL [facility] [place] [facility] Encounter Notes: All associated encounter [...] and Tinnitus Disability Benefits Questionnaire Name of patient/[place]: JUAN CARLOS NATALI JORDAN Is this DBQ being completed in conjunction with a VA [id number], C&P Examination Request? [X] Yes [ ] [...] in conjunction with an interview with the [place] (without in-person or telehealth examination) using the JAIME process because the existing medical evidence supplemented with an interview provided sufficient information on which to prepare the questionnaire and such an examination would likely provide no additional relevant evidence. 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 Objective Findings a. Puretone thresholds in decibels (air conduction): RIGHT EAR + + A B C D E F G ========+========+======= =+========+========+====== ==+========+========+ 500 1000 2000 3000 4000 6000 8000 Avg Hz Hz* Hz Hz Hz Hz Hz Hz (B-E) ========+========+======= =+========+========+====== ==+========+======== 60 60 70 65 70 95 105 [id number] + + LEFT EAR + + A B C D E F G ========+========+======= =+========+========+====== ==+========+========+ 500 1000 2000 3000 4000 6000 8000 Avg Hz Hz* Hz Hz Hz Hz Hz Hz (B-E) ========+========+======= =+========+========+====== ==+========+======== 55 65 90 90 100 105+ 105+ [id number] + + * The puretone threshold at [...] for rating purposes. d. Speech Discrimination Score ([facility] [place] word list): + + RIGHT EAR 74% +========= LEFT EAR 34% + + e. Appropriateness of Use of Word Recognition Score ([place] [facility] word list): Right Ear: Is Word Discrimination Score available? Yes Word Discrimination Score appropriateness: Use of speech recognition score is appropriate for this . Left Ear: Is Word Discrimination Score available? Yes Word Discrimination Score appropriateness: Use of word recognition score is appropriate for this [place]. f. Audiologic Findings Summary of Immittance (Tympanometry) [...] frequencies in the 500-4000 Hz range. The may have impaired hearing, but it does not meet the criteria to be considered a disability for VA purposes. For VA purposes, the diagnosis of hearing impairment is based upon testing at frequency ranges of 500, 1000, 2000, 3000, and 4000 Hz. If there is no HL in the 500-4000 Hz range, but there is HL above 4000 Hz, check this box. The [place] may have a significant change in hearing threshold in service, but it does not meet the criteria to be considered a disability for VA purposes. (A significant change in hearing threshold may indicate noise exposure or acoustic trauma.) 3. Etiology [X] Etiology opinion not indicated as: [X] Service connected condition 4. Functional impact of hearing loss Does the 's hearing loss impact ordinary conditions of daily life, including ability to work: Yes If yes, describe impact in the [place]'s own words: [place] reports, I am not hearing as well with my hearing aids. 5. Remarks, if any, pertaining to hearing loss: No response provided SECTION 2: TINNITUS 1. Medical history Does the [place] report recurrent tinnitus: No 2. Etiology of tinnitus [X] Etiology opinion not indicated as: [X] Service connected condition 3. Functional impact of tinnitus ------ Does the [place]'s tinnitus impact ordinary conditions of daily life, including ability to work: No response provided 4. Remarks, if any, pertaining to tinnitus: [place] denied tinnitus today when asked if he gets any noises in his ears (ringing, buzzing, hissing, humming, chirping, etc.) NOTE: [place] may request additional medical information, including additional examinations if necessary to complete [place]'s review of the 's application. /maciel/ Lb Macias CCC-A Director Insurance Signed: 12/20/2023 09:20 GEORGE SALDANA [place] [facility] [facility]
--- OUTSIDE RECORDS SUMMARY | 2024-10-11 12:26 | XMS_ITS ---
Author Name [facility] [place] Address [address] [place] [address] Care Team Providers Care Drying Room Supervisor Name Role Phone PAMELA RADFORD Primary Care [...] Pete's Name Patient's Relationship to Policy Pete [facility] MEDICARE ADVANTAGE MCR ([facility]) Jul 18, 2019 [id number] OCHOA RANGEL PATIENT [facility] ([facility]) MEDICARE ADVANTAGE MCR (R) Jul 18, 2019 [id number] [phone] OCHOA RANGEL PATIENT [facility] ([facility]) MEDICARE ADVANTAGE MCR (R) Jul 18, 2019 [id number] JUAN CARLOS,OCHOA CORRIEWilliam PATIENT [facility] ([facility]) MEDICARE ADVANTAGE MCR ([facility]) Jul 18, 2017 [id number] OHCOA RANGEL PATIENT Selected Encounter This section includes the information on record at [place] for the Encounter. Date/Time Encounter Type Encounter Description Reason Provider Source Jan 16, 2024 08:00 AM CONFORMITY EVALUATION AUDIOLOGY ICD-10-CM Z46.1 Encounter for fitting and adjustment of hearing aid KRIS KNIGHT [facility] Encounter Template Text not used by [place] Assessments - Encounter Diagnoses This section includes the primary and secondary diagnoses documented for the Encounter. Date/Time Primary/Secondary Diagnosis Diagnosis Name Provider Source Jan 16, 2024 08:37 AM PRIMARY Encounter for fitting and adjustment of hearing aid KRIS KNIGHT [facility] Jan 16, 2024 08:37 AM SECONDARY Sensorineural hearing loss, bilateral KRIS KNIGHT [facility] Plan of Treatment: Future Appointments (+ 6 months) and Future Tests (+/- 45 days) The Plan of Treatment section includes future care activities for the patient from all [place] [facility]. This section includes future appointments and future orders which are active, pending or scheduled. Future Appointments This section includes appointments that were scheduled to occur 6 months from the date of the Encounter, up to a maximum of 20 appointments. The data comes from all [place] treatment facilities. Appointment Date/Time Appointment Type Appointme nt Facility Name Mar 05, 2024 10:30 AM [facility]BULAT[facility] - [facility] Jun 08, 2024 01:00 PM AMBULAT[facility] - [facility] Jun 22, 2024 08:30 AM AMBULATORY - [facility] MEDICIN [facility] Jun 22, 2024 09:30 AM AM[facility]UL[facility] - [facility] Lab Results: +/- 30 days of the encounter This section includes the Chemistry and Hematology Lab Results on record with [place] for the patient. Radiology Reports and Pathology Reports are provided separately, in subsequent sections. Lab Results This section contains the Chemistry/Hematology Results that were resulted 30 days before or 30 daysafter the date of the Encounter. Date/Time Source Result Type Result - Unit Interpretation Reference Range Comment Dec 21, 2023 10:26 AM [facility] CBC Specimen Type: BLOOD No comment entered. Ordering Provider: FLOR RADFORD Report Released Date/Time: December 07, 2023 02:55 PM Reporting Lab: [address] [address] Performing Lab: [facility] [address] [facility] [address] WBC 7.63 10*3/uL 4.50-11.00 RBC 4.98 10*6/uL 4.23-5.66 HGB 14.0 g/dL 12.8-17 HCT 42.5 39.2-50.4 MCV 85.3 fL 82-99 MCHC 32.9 g/dL 30.8-35.1 PLT 237 10*3/uL 140-360 RDW-CV 14.1 12.0-16.0 MCH 28.1 pg 26.2-32.6 Dec 21, 2023 10:26 AM [facility] LIPID PANEL, NON FASTING Specimen Type: SERUM No comment entered. Ordering Provider: FLOR RADFORD Report Released Date/Time: December 07, 2023 02:55 PM Reporting Lab: [address] [address] Performing Lab: [facility] [address] [facility] [address] CHOLESTEROL 147 mg/dL TRIGLYCERIDE 76 mg/dL 0-150 LDL calculated 78 mg/dL 0-129 CHOL/HDL 2.7 HDL CHOLESTEROL 54 mg/dL 40-60 Dec 21, 2023 10:26 AM [facility] BASIC METABOLIC PANEL (non-fasting) Specimen Type: SERUM No comment entered. Ordering Provider: FLOR RADFORD Report Released Date/Time: December 07, 2023 02:55 PM Reporting Lab: [facility] [address] [facility] [address] Performing Lab: [address] [address] UREA NITROGEN 21 mg/dL 7-25 GLUCOSE 121 mg/dL H 65-100 SODIUM 142 mmol/L 135-145 POTASSIUM 4.6 mmol/L 3.5-5.0 CHLORIDE 110 mmol/L 100-110 CO2 25 meq/L 20-30 CREATININE, Serum 1.12 mg/dL 0.50-1.40 eGFR(CKD-EPI 2020) 64 mL/min >60 Dec 21, 2023 10:26 AM [facility] PT & INR (PROTIME) Specimen Type: PLASMA No comment entered. Ordering Provider: FLOR RADFORD Report Released Date/Time: December 07, 2023 02:55 PM Reporting Lab: [address] [address] Performing Lab: [address] [address] INR 1.1 PROTIME 12.6 s 10.0-13.1 Dec 21, 2023 10:26 AM [facility] LIVER FUNCTION Specimen Type: SERUM No comment entered. Ordering Provider: FLOR RADFORD Report Released Date/Time: December 07, 2023 02:55 PM Reporting Lab: [address] [address] Performing Lab: [address] [address] PROTEIN,TOTAL 6.1 g/dL 6.0-8.3 ALBUMIN 3.3 g/dL L 3.5-5.0 ALKALINE PHOSPHATASE 64 U/L 40-150 AST 12 U/L 5-34 ALT 13 U/L BILIRUBIN, TOTAL 0.4 mg/dL 0.2-1.2 Social History: Smoking Status (Most current) and Tobacco Use (All prior to encounter date) This section includes the most current, and the historical, smoking and tobacco- related health factors from the [place] facility where the Encounter took place. Current Smoking Status This section includes the most current smoking, or tobacco-related health factor, from the [place] facility where the Encounter took place. Date/Time Current Smoking Status Comment Dena vasquezy Dec 21, 2023 10:00 AM VA-TOBACCO NEVER USED [facility] Tobacco Use History This section includes a history of the smoking, or tobacco-related health factors, that were collected on or before the date of the Encounter. The data comes from the [place] facility where the Encounter took place. Date/Time Smoking Status/Tobacco Use Comment F acility Oct 14, 2022 08:30 AM VA-TOBACCO NEVER USED [facility] Oct 07, 2021 03:00 PM VA-TOBACCO [facility] USED [facility] [place] [facility] Sep 26, 2020 09:00 AM VA-TOBACCO NEVER USED [facility] [place] [facility] Aug 14, 2019 02:17 PM VA-TOBACCO [facility] USED [facility] [place] [facility] Jun 14, 2018 10:41 AM VA-TOBACCO NEVER USED [facility] Mar 30, 2017 09:18 AM LIFETIME NON-TOBACCO USER [facility] [place] [facility] Dec 26, 2015 09:53 AM LIFETIME NON-TOBACCO USER [facility] [place] [facility] Advance Directives: All historical and current Section Date Range: From patient's date of to the date document was created. This section includes ALL of a patient's completed or amended [place] Advance and Rescinded Directives. The entries below indicate that a directive exists for the patient, but an actual copy is not included with this document. The data comes from all [place] facilities. Date Advance Directives Provider Source Feb 18, 2020 ADVANCE DIRECTIVE FERCHO DE LA CRUZ MARIAELENA Mckeon [facility] [place] [facility] Encounter Notes: All associated encounter notes This section contains the clinical notes associated to the Encounter. Date/Time Encounter Note(s) Provider Source Jan 16, 2024 07:35 AM AUDIOLOGY E & M NO TE: [facility] TITLE: AUDIOLOGY CLINIC STANDARD TITLE: AUDIOLOGY [...] Does the patient have any cultural and advent beliefs, emotional barriers, physical or cognitive limitations, and communication barriers which may impact his ability to learn? No Desire and motivation to learn? Good OBJECTIVE (O): Physical fit of hearing aids was good. Patient verified comfort. Verification of an appropriate acoustic response was obtained using Real Ear measurements (speech mapping) and NAL-NL2 targets. The patient reported good subjective benefit as well. Feedback costume shop manager was run. Hearing aids were found to be meeting targets adequately and MPO was not exceeding estimated UCL. Settings stored in [facility]. ASSESSMENT (A): The following devices were issued: Make: MOHAMUD Model: MintigoV AI POWER+ BTE 13 Right Serial Number: [id number] Left Serial Number: [id number] Battery size: 13 Warranty ends: 01/24/27 Trial Period ends: 06/23/24 Earmold Information: Canal lock earmold Tubin Heavy Program(s): Automatic Button(s): Short press= Synced VC via rocker switches Long press= Accessory start/stop Fitting Formula: NAL-NL2 Remote Programming: HAs are capable Bluetooth: Adin not interested Counseling was completed throughout todays [...] patient was informed of and signed/agreed to [place] policy on hearing aid issuance: Yes Users are responsible for the maintenance and security of their devices. Determination of need to replace a hearing aid is made by the [place] practice assistant. Hearing aids will not be replaced in [...] RE Not Applicable NA /maciel/ YUMIKO SHARIF, [facility]-A STAFF SENIOR DIRECTOR CREATIVE SERVICES Signed: 01/16/2024 08:37 KRIS KNIGHT [facility]
--- OUTSIDE RECORDS SUMMARY | 2024-10-11 12:26 | XMS_ITS ---
Author Name [facility] [place] Organization [place] Address [address] [place] [address] Care Team Providers Care Solar Field Installation Crew Member Name Role Phone PAMELA RADFORD Primary Care Provider [facility] Insurance Providers: All historical and [...] Name Patient's Relationship to Policy Pete [facility] ([facility]) MEDICARE ADVANTAGE MCR ([facility]) Jul 18, 2019 [id number] [phone] JUAN CARLOS,OCHOA JAQUELINE PATIENT [facility] ([facility]) MEDICARE ADVANTAGE MCR ([facility]) Jul 18, 2019 [id number] [phone] JUAN CARLOS,OCHOA CORRIEWilliam PATIENT [facility] ([facility]) MEDICARE ADVANTAGE MCR (R) Jul 18, 2019 [id number] OCHOA RANGEL PATIENT [facility] ([facility]) MEDICARE ADVANTAGE MCR ([facility]) Jul 18, 2017 [id number] OCHOA RANGEL PATIENT Selected Encounter This section includes the information on record at [place] for the Encounter. Date/Time Encounter Type Encounter Description Reason Provider Source Sep 11, 2024 11:00 AM HEARING AID REPAIR/MODIFYIN G AUDIOLOGY ICD-10-CM Z46.1 Encounter for fitting and adjustment of hearing aid CHRISTEL LYNCH [place] Encounter Template Text not used by [place] Assessments - Encounter Diagnoses This section includes the primary and secondary diagnoses documented for the Encounter. Date/Time Primary/Secondary Diagnosis Diagnosis Name Provider Source Sep 11, 2024 11:34 AM PRIMARY Encounter for fitting and adjustment of hearing aid [facility] LYNCH [facility] Sep 11, 2024 11:34 AM SECONDARY Sensorineural hearing loss, bilateral YANELY LYNCH [facility] Plan of Treatment: Future Appointments (+ 6 months) and Future Tests (+/- 45 days) The Plan of Treatment section includes future care activities for the patient from all [place] [facility]. This section includes future appointments and future orders which are active, pending or scheduled. Future Appointments This section includes appointments that were scheduled to occur 6 months from the date of the Encounter, up to a maximum of 20 appointments. The data comes from all [place] treatment facilities. Appointment Date/Time Appointment Type Appointme nt Facility Name Dec 21, 2024 08:30 AM [facility]UL[facility] Social History: Smoking Status (Most [...] Dena coreas Dec 21, 2023 10:00 AM [place]-TOBACCO NEVER USED [facility] Tobacco Use History This section includes a history of the smoking, or tobacco-related health factors, that were collected on or before the date of the Encounter. The data comes from the [place] facility where the Encounter took place. Date/Time Smoking Status/Tobacco Use Comment Jose acaga Oct 14, 2022 08:30 AM VA-TOBACCO NEVER USED [place] [facility] [place] [facility] Oct 07, 2021 03:00 PM VA-TOBACCO NEVER USED [facility] Sep 26, 2020 09:00 AM VA-TOBACCO NEVER USED [facility] [place] [facility] Aug 14, 2019 02:17 PM VA-TOBACCO NEVER USED [facility] [place] [facility] Jun 14, 2018 10:41 AM VA-TOBACCO NEVER USED [facility] [place] [facility] Mar 30, 2017 09:18 AM LIFETIME NON-TOBACCO USER [facility] [place] [facility] Dec 26, 2015 09:53 AM LIFETIME NON-TOBACCO USER [place] [facility] [place] [facility] Advance Directives: All historical and [...] DIRECTIVE FERCHO DE LA CRUZ [facility] Encounter Notes: All associated encounter [...] aid follow-up appointment. He was fit with [employer] AI Power+ BTEs on 01/16/24. He reports both hearing aids shut down in noisy environments. He has been wearing his old right Derek Betito Edge AI BTE (SN:[id number]). HEARING AID CHECK: [place]'s three hearing aids were cleaned and checked. Tubes, tone hooks, and microphone covers replaced. HEARING AID PROGRAMMING: New hearing aids were connected to [employer] and MPO was increased and speech in [...] Applicable NA * /maciel/ CHRISTEL LYNCH STAFF CANDY COUNTER CLERK Signed: 09/11/2024 11:35 CHRISTEL LYNCH [facility] [place] [facility]
--- OUTSIDE RECORDS SUMMARY | 2024-10-11 12:26 | XMS_ITS | Clinical Summary ---
Author Organization [facility] Facility Address [address] [place] [address] Care Team Providers Care Fur Tinter Name Role Phone Selin Logan MD Primary [...] Visit [facility] [address] [place] [phone] Wili Zimmer MD [address] [phone] Health Maintenance Due Date Last Done Comments Pneumococcal Vaccine: 65+ Years Completed 03/07/2023, 10/13/2018, 12/19/2015, Additional history exists Influenza Vaccine Completed 04/26/2024, , 04/20/2023, Additional history exists Hepatitis B Vaccine Aged Out No longe r eligible based on patient's age to complete this topic Insurance [facility] Care Teams Fur Tinter Relationship Specialty Start Date End Date Selin Logan MD [address] [place] [address] PCP - General 07/28/20
--- OUTSIDE RECORDS SUMMARY | 2024-10-11 12:26 | XMS_ITS ---
Author Name [place] Address [address] [place] [address] Care Team Providers Care Lamination Assembler Name Role Phone PAMELA BOLAÑOS Primary Care [...] Pete's Name Patient's Relationship to Policy [facility]) MEDICARE ADVANTAGE MCR ([facility]) Jul 18, 2019 [id number] [facility] (WNR) MEDICARE ADVANTAGE MCR (R) Jul 18, 2019 [id number] [phone] [facility] (WNR) MEDICARE ADVANTAGE MCR (WNR) Jul 18, 2019 [id number] [phone] JUAN CARLOSOCHOAWilliam PATIENT [facility] (WN) MEDICARE ADVANTAGE MCR ([facility]) Jul 18, 2017 [id number] OCHOA RANGEL PATIENT Selected Encounter This section includes the information on record at [place] for the Encounter. 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 Date/Time Primary/Secondary Diagnosis Diagnosis Name Provider Source Dec 21, 2023 02:28 PM PRIMARY MCFP (current) use of anticoagulants [facility]OLAÑOS,WILL [facility]S [facility] Dec 21, 2023 02:28 PM SECONDARY Acute embolism and thombos unsp deep vn unsp lower extremity BOLAÑOS,WILL ROSS J [facility] Dec 21, 2023 02:28 PM SECONDARY Essential (primary) hypertension BOLAÑOS,WILL ROSS J [facility] Dec 21, 2023 02:28 PM SECONDARY Personal history of pulmonary embolism BOLAÑOS,WILL [facility] Dec 21, 2023 02:28 PM SECONDARY Respiratory bronchiolitis interstitial lung disease BOLAÑOS,WILL ROSS J [facility] Plan of Treatment: Future Appointments (+ 6 months) and Future Tests (+/- 45 days) The Plan of Treatment section includes future care activities for the patient from all [facility]. This section includes future appointments and future orders which are active, pending or scheduled. Future Appointments This section includes appointments that were scheduled to occur 6 months from the date of the Encounter, up to a maximum of 20 appointments. The data comes from all [place] treatment facilities. Appointment Date/Time Appointment Type Appointme nt Facility Name Jan 16, 2024 08:00 AM [facility] Mar 05, 2024 10:30 AM [facility] Jun 08, 2024 01:00 PM [facility] Lab Results: +/- 30 days of the encounter This section includes the Chemistry and Hematology Lab Results on record with [place] for the patient. Radiology Reports and Pathology Reports are provided separately, in subsequent sections. Lab Results This section contains the Chemistry/Hematology Results that were resulted 30 days before or 30 daysafter the date of the Encounter. Date/Time Source Result Type Result - Unit Interpretation Reference Range Comment Dec 21, 2023 10:26 AM [facility] LIPID PANEL, NON FASTING Specimen Type: SERUM No comment entered. Ordering Provider: FLOR BOLAÑOS Report Released Date/Time: December 07, 2023 02:55 PM Reporting Lab: [address] [address] Performing Lab: [address] [address] CHOLESTEROL 147 mg/dL TRIGLYCERIDE 76 mg/dL 0-150 LDL calculated 78 mg/dL 0-129 CHOL/HDL 2.7 HDL CHOLESTEROL 54 mg/dL 40-60 Dec 21, 2023 10:26 AM [facility] CBC Specimen Type: BLOOD No comment entered. Ordering Provider: FLOR BOLAÑOS Report Released Date/Time: December 07, 2023 02:55 PM Reporting Lab: [address] [address] Performing Lab: [address] [address] WBC 7.63 10*3/uL 4.50-11.00 RBC 4.98 10*6/uL 4.23-5.66 HGB 14.0 g/dL 12.8-17 HCT 42.5 39.2-50.4 MCV 85.3 fL 82-99 MCHC 32.9 g/dL 30.8-35.1 PLT 237 10*3/uL 140-360 RDW-CV 14.1 12.0-16.0 MCH 28.1 pg 26.2-32.6 Dec 21, 2023 10:26 AM [facility] BASIC METABOLIC PANEL (non-fasting) Specimen Type: SERUM No comment entered. Ordering Provider: FLOR BOLAÑOS Report Released Date/Time: December 07, 2023 02:55 PM Reporting Lab: [address] [address] Performing Lab: [address] [address] UREA NITROGEN 21 mg/dL 7-25 GLUCOSE 121 mg/dL H 65-100 SODIUM 142 mmol/L 135-145 POTASSIUM 4.6 mmol/L 3.5-5.0 CHLORIDE 110 mmol/L 100-110 CO2 25 meq/L 20-30 CREATININE, Serum 1.12 mg/dL 0.50-1.40 eGFR(CKD-EPI 2020) 64 mL/min >60 Dec 21, 2023 10:26 AM [facility] PT & INR (PROTIME) Specimen Type: PLASMA No comment entered. Ordering Provider: FLOR BOLAÑOS Report Released Date/Time: December 07, 2023 02:55 PM Reporting Lab: [address] [address] Performing Lab: [address] [address] INR 1.1 PROTIME 12.6 s 10.0-13.1 Dec 21, 2023 10:26 AM [facility] LIVER FUNCTION Specimen Type: SERUM No comment entered. Ordering Provider: FLOR BOLAÑOS Report Released Date/Time: December 07, 2023 02:55 PM Reporting Lab: [address] [address] Performing Lab: [address] [address] PROTEIN,TOTAL 6.1 g/dL 6.0-8.3 ALBUMIN 3.3 g/dL [...] 136/76 20 95 0 64 144 25 [facility] Social History: Smoking Status (Most current) and Tobacco Use (All prior to encounter date) This section includes the most current, and the historical, smoking and tobacco- related health factors from the [place] facility where the Encounter took place. Current Smoking Status This section includes the most current smoking, or tobacco-related health factor, from the [place] facility where the Encounter took place. Date/Time Current Smoking Status Comment Dena ity Dec 21, 2023 10:00 AM VA-TOBACCO NEVER USED [facility] Tobacco Use History This section includes a history of the smoking, or tobacco-related health factors, that were collected on or before the date of the Encounter. The data comes from the [place] facility where the Encounter took place. Date/Time Smoking Status/Tobacco Use Comment F acility Oct 14, 2022 08:30 AM VA-TOBACCO NEVER USED [place] [facility] [place] [facility] Oct 07, 2021 03:00 PM VA-TOBACCO NEVER USED [facility] [place] [facility] Sep 26, 2020 09:00 AM VA-TOBACCO NEVER USED [facility] [place] [facility] Aug 14, 2019 02:17 PM VA-TOBACCO NEVER USED [place] [facility] [place] [facility] Jun 14, 2018 10:41 AM VA-TOBACCO NEVER USED [facility] [place] [facility] Mar 30, 2017 09:18 AM LIFETIME NON-TOBACCO USER [place] [facility] [place] [facility] Dec 26, 2015 09:53 AM LIFETIME NON-TOBACCO USER [facility] Advance Directives: All historical and current Section Date Range: From patient's date of to the date document was created. This section includes ALL of a patient's completed or amended [place] Advance and Rescinded Directives. The entries below indicate that a directive exists for the patient, but an actual copy is not included with this document. The data comes from all [place] facilities. Date Advance Directives Provider Source Feb 18, 2020 ADVANCE DIRECTIVE [facility] Encounter Notes: All associated encounter notes [...] complaint: Patient is a 83 year old [place]. HPI: Pleasant male here with his . He was started on spiriva and completed pulm rehab, breathing much better. 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 Will check lipids today. Maintains community PCP, [...] Jhon alvarez 2. Deep venous thrombosis - longterm a/c 3. Polycystic kidney disease, adult type [...] of active outpatient prescriptions dispensed from this [place] (local) and dispensed from another VA or [...] VA or non-VA provider. /maciel/ Pamela Bolaños [facility], CENTRIFUGAL CHILLER TECHNICIAN-BC, CNL Primary Care Nurse Practitioner Signed: 12/21/2023 14:27 PAMELA BOLAÑOS [place] [facility] [place] [facility] Dec 21, 2023 09:51 AM PREVENTIVE MEDICINE NURSING NOTE: LOCAL TITLE: CLINICAL REMINDERS/NURSING STANDARD TITLE: PREVENTIVE MEDICINE NURSING NOTE DATE OF NOTE: DEC 21, 2023@09:51 ENTRY DATE: DEC 21, 2023@09:51:11 AUTHOR: GIANCARLO CASTLE COSIGNER: URGENCY: STATUS: COMPLETED Suicide Screen: C-SSRS Screening [place]-Suicide Severity Rating Scale (C-SSRS Screener) 1. Over [...] past year? Never /es/ Giancar[facility] Supervisor Anodizing ROLL CLAMP OPERATOR,PRIMARY CARE Signed: 12/21/2023 09:53 GIANCARLO CASTLE [facility]
--- OUTSIDE RECORDS SUMMARY | 2024-10-11 12:27 | XMS_ITS ---
Author Name [facility] [place] Address [address] [place] [address] Care Team Providers Care Diesel Technician Name Role Phone KEVIN BOLAÑOS Primary Care [...] Name Patient's Relationship to Policy Pete GARRETT [facility] (WNR) MEDICARE ADVANTAGE MCR (WNR) Jul 18, 2019 [id number] OCHOA RANGEL PATIENT [facility] (WNR) MEDICARE ADVANTAGE MCR (WNR) Jul 18, 2019 [id number] JUAN CARLOS,OCHOA JAQUELINE PATIENT [facility] (WNR) MEDICARE ADVANTAGE MCR (WNR) Jul 18, 2019 [id number] OCHOA RANGEL PATIENT [facility] (WNR) MEDICARE ADVANTAGE MCR (WNR) Jul 18, 2017 [id number] OCHOA RANGEL PATIENT Selected Encounter This section includes the information on record at [place] for the Encounter. Date/Time Encounter Type Encounter Description Reason Pro vider Source Aug 23, 2024 05:49 PM Outpatient Encounter ADMIN PAT ACTIVTIES (MASNONCT) IHE Encounter Template Text not used by [place] Plan of Treatment: Future Appointments (+ 6 months) and Future Tests (+/- 45 days) The Plan of Treatment section includes future care activities for the patient [facility] all [place] [facility] This section includes future appointments and future orders which are active, pending or scheduled. Future Appointments This section includes appointments that were scheduled to occur 6 months from the date of the Encounter, up to a maximum of 20 appointments. The data comes from all [place] treatment facilities. Appointment Date/Time Appointment Type Appointme nt Facility Name Sep 11, 2024 11:00 AM AMBULATORY [facility] [facility] [place] [facility] Dec 21, 2024 08:30 AM AMBULATORY - MEDICINE [facility] [place] [facility] Social History: Smoking Status (Most current) and Tobacco Use (All prior to encounter date) This section includes the most current, and the historical, smoking and tobacco- related health factors from the [place] facility where the Encounter took place. Current Smoking Status This section includes the most current smoking, or tobacco-related health factor, from the [place] facility where the Encounter took place. Date/Time Current Smoking Status Comment Facil ity Dec 21, 2023 10:00 AM VA-TOBACCO NEVER USED [place] [facility] [place] [facility] Tobacco Use History This section includes a history of the smoking, or tobacco-related health factors, that were collected on or before the date of the Encounter. The data comes from the [place] facility where the Encounter took place. Date/Time Smoking Status/Tobacco Use Comment F acility Oct 14, 2022 08:30 AM VA-TOBACCO NEVER USED [place] [facility] [place] [facility] Oct 07, 2021 03:00 PM VA-TOBACCO NEVER USED [place] [facility] [place] [facility] Sep 26, 2020 09:00 AM VA-TOBACCO NEVER USED [place] [facility] [place] [facility] Aug 14, 2019 02:17 PM VA-TOBACCO NEVER USED [place] [facility] [place] [facility] Jun 14, 2018 10:41 AM VA-TOBACCO NEVER USED [place] [facility] [place] [facility] Mar 30, 2017 09:18 AM LIFETIME NON-TOBACCO USER [place] [facility] [place] [facility] Dec 26, 2015 09:53 AM LIFETIME NON-TOBACCO USER [facility] Advance Directives: All historical and current Section Date Range: From patient's date of to the date document was created. This section includes ALL of a patient's completed or amended [place] Advance and Rescinded Directives. The entries below indicate that a directive exists for the patient, but an actual copy is not included with this document. The data comes from all [place] facilities. Date Advance Directives Provider Source Feb 18, 2020 ADVANCE DIRECTIVE FERCHO DE LA CRUZ [facility] Encounter Notes: All associated encounter notes This section contains the clinical notes associated to the Encounter. Date/Time Encounter Note(s) Provider Source Aug 23, 2024 05:49 PM PHARMACY NOTE: LOCAL TITLE: PHARMACY CUSTOMER CARE MEDICATION RENEWAL STANDARD TITLE: PHARMACY NOTE DATE OF NOTE: AUG 23, 2024@17:49 ENTRY DATE: AUG 23, 2024@17:49:32 AUTHOR: ANIA ANGEL EXP COSIGNER: URGENCY: STATUS: COMPLETED Date: Aug Division: [place] Pt referred by Pharmacy Call Center for medication renewal: Non-controlled/maintenanc e medication Medications requested: [id number] ALBUTEROL 3/IPRATROP 0.5MG/3ML INHL 3ML This medication is discontinued per the medication profile, however the requested to fill it through the [place]. The can be reached at [phone] to discuss if needed. Please review. Defer to primary care provider To be mailed . Please review and renew if appropriate. *This note was generated by [facility]/PR Pharmacy Customer Care. If you have any questions or need assistance, do not contact this author. Please refer all questions to your local, on-site pharmacy departments. /maciel/ ANIA ANGEL CPhT CUT OUT STITCHER, PR/PHARMACY CUSTOMER CARE Signed: 08/23/2024 17:49 Receipt Acknowledged By: 08/24/2024 07:29 /es/ Kevin Bolaños DNP, COLLATERAL CLERK-BC, CNL Primary Care Nurse Practitioner 08/24/2024 08:41 /es/ Jovita Underwood MSN RN CNL Primary Care RN ANIA ANGEL [facility]
--- OUTSIDE RECORDS SUMMARY | 2024-10-11 12:27 | XMS_ITS | Continuity of Care Document ---
Author Name [facility] Organization [facility] Care Team Providers Care Garnetter Name Role Phone [facility] Unavailable Unavailable Problems Combined list of problems from Department of Defense and Veterans Affairs facilities. It does not include entries that were removed or entered in error. Problem Status Onset Date Problem Type Date of Resolution Comments Source Polycystic kidney disease, adult type Active 07/18/19 13 Condition Mar 30, 2017 Entered By: SEEMA FONSECA Comment: followed by Dr. Zimmer, mate first - 05/07/16 retroperitoneal stable dominant left upper [...] [facility] [place] [facility] Diagnosis: ICD-10-CM Z79.01 retirement (current) use of anticoagulants Active Diagnosis [facility] Diagnosis: ICD-10-CM H90.3 Sensorineural hearing loss, bilateral Active [facility] Diagnosis: ICD-10-CM Z02.89 Encounter for other administrative examinations Active Diagnosis [facility] Medications Combined list of outpatient medications from [...] [facility] RESPIR ATORY (INHAL ATION) ACTIVE 06/23/2025 [id number] PAMELA RADFORD [facility] AL[facility] SO4 0.083% INHL,3ML INHALE 1 AMPULE IN NEBULIZE R EVERY 4 HOURS NEEDED FOR BREATHIN G RESPIR ATORY (INHAL ATION) DISCONT INUED BY PROVIDE R 08/18/2024 [id number] PAMELA RADFORD 2023 90 [facility] ALBUTEROL SO4 3MG/IPRATRO PIUM BR 0.5MG/3ML INHL,3ML INHALE 1 VIAL (3ML) IN NEBULIZE R EVERY 6 HOURS NEEDED FOR BRONCHOS [facility] RESPIR ATORY (INHAL ATION) ACTIVE 08/25/2025 [id number] 5 PAMELA RADFORD 2024 360 [facility] ALBUTEROL SO4 3MG/IPRATRO PIUM BR 0.5MG/3ML INHL,3ML INHALE 1 VIAL (3ML) IN NEBULIZE R EVERY 6 HOURS NEEDED FOR BRONCHOS PAS[facility] RESPIR ATORY (INHAL ATION) DISCONT INUED BY PROVIDE R 09/02/2024 [id number] PAMELA RADFORD 2023 360 [facility] AMLODIPINE BESYLATE 2.5MG TAB TAKE THREE TABLETS BY MOUTH DAILY ORAL ACTIVE SA GEOFF FONSECA A 2016 [facility] APIXABAN 2.5MG TAB TAKE ONE TABLET BY MOUTH TWICE DAILY FOR PREVENTI ON OF BLOOD CLOTS NOTE TABLET STRENGTH AND DIRECTIO NS ORAL ACTIVE 05/19/2025 [id number] 5 PAMELA RADFORD 2023 120 [facility] APIXABAN 2.5MG TAB TAKE ONE TABLET BY MOUTH TWICE DAILY FOR PREVENTI ON OF BLOOD CLOTS NOTE TABLET STRENGTH AND DIRECTIO NS ORAL DISCONT INUED 05/03/2024 [id number] 4 PAMELA RADFORD 2022 120 [facility] ASPIRIN 81MG TAB,EC TAKE ONE TABLET BY MOUTH ONCE DAILY ORAL ACTIVE SANA TESFAYE RISTINE F 2019 [facility] CITALOPRAM HYDROBROMID E 40MG TAB TAKE ONE-HALF TABLET BY MOUTH DAILY ORAL ACTIVE Shelia CHE 2015 [facility] COENZYME Q10 CAP/TAB TAKE BY MOUTH ONCE DAILY ORAL ACTIVE SANA TESFAYE F 2019 [facility] CYANOCOBALA MIN 1000MCG TAB TAKE TWO TABLETS BY MOUTH ONCE DAILY ORAL ACTIVE PAMELA RADFORD 2020 [facility] FLUTICASONE 500MCG/SALM ETEROL 50MCG INHL,ORAL,D ISKUS,60 INHALE 1 PUFF BY MOUTH TWICE DAILY - RINSE MOUTH AFTER USE RESPIR ATORY (INHAL ATION) ACTIVE 06/23/2025 [id number] 5 PAMEL[facility] RADFORD [facility] FLUTICASONE 500MCG/SALM ETEROL 50MCG INHL,ORAL,D ISKUS,60 INHALE 1 PUFF BY MOUTH TWICE DAILY - RINSE MOUTH AFTER USE RESPIR ATORY (INHAL ATION) DISCONT INUED 06/27/2024 [id number] PAMELA RADFORD 2022 1 [facility] LACTULOSE 10GM/15ML SOLN,ORAL TAKE 15 ML (1 TABLESPO ON) BY MOUTH ONCE DAILY ORAL ACTIVE SANA TESFAYE F 2019 [facility] LORAZEPAM 1MG TAB TAKE ONE TABLET BY MOUTH ONCE DAILY NEEDED ORAL ACTIVE SANA TESFAYE F 2019 [facility] MONTELUKAST NA 10MG TAB TAKE ONE TABLET BY MOUTH DAILY ORAL ACTIVE Shelia CHE 2015 [facility] OMEPRAZOLE 20MG CAP,EC TAKE TWO CAPSULES BY MOUTH EVERY MORNING 30 MINUTES BEFORE BREAKFAS T ORAL ACTIVE 05/19/2025 [id number] 4 PAMELA RADFORD 2023 180 [facility] OMEPRAZOLE 20MG CAP,EC TAKE TWO CAPSULES BY MOUTH EVERY MORNING 30 MINUTES BEFORE BREAKFAS T ORAL DISCONT INUED 06/27/2024 [id number] PAMELA RADFORD 2022 180 [facility] OTHER CAP/TAB TAKE OLMASART AN/MEDOX OMIL BY MOUTH DIRECTED ORAL ACTIVE PAMELA RADFORD 2022 [facility] OXYGEN MISCELLANEO US USE OXYGEN DIRECTED HS NOT APPLIC ABLE ACTIVE PAMELA RADFORD 2020 [facility] POLYETHYLEN E GLYCOL 3350 PWDR,ORAL [...] COPD RESPIR ATORY (INHAL ATION) ACTIVE 05/19/2025 [id number] 5 PAMELA RADFORD 2024 3 [facility] TIOTROPIUM 2.5MCG/ACTU AT INHL,ORAL,6 0D,4GM INHALE 2 PUFFS BY MOUTH ONCE DAILY FOR BRONCHOS PASM PREVENTI ON WITH COPD RESPIR ATORY (INHAL ATION) DISCONT INUED 08/18/2024 [id number] PAMELA RADFORD 2023 3 [facility] Allergies, Adverse Reactions, Alerts Combined list of allergies from Department of Defense and Veterans Affairs facilities. It does not include entries that were removed or entered in error. Substance Category Reaction Severity Reaction type Status Date Reported Comments Source GABAPENTIN Propensity to adverse reactions to drug (finding) active 1 [facility] Immunizations Combined list of available immunizations from the Department of Defense and Veterans Affairs facilities. Immunization Series Date Given Administered By Site Reaction Lot Number CVX Code Drug Cytology Supervisor Status Comments Source INFLUENZA, UNSPECIFIED FORMULATION 2023 88 complet ed per statement from vet [place] [facility] [place] [facility] INFLUENZA, UNSPECIFIED FORMULATION 2022 88 complet ed [place] [facility] [place] [facility] TD(ADULT) UNSPECIFIED FORMULATION 2021 139 complet ed [place] [facility] [place] [facility] COVID-19 (PFIZER), MRNA, LNP-S, PF, 30 MCG/0.3 ML DOSE 3 2020 208 complet ed [place] [facility] [place] [facility] COVID-19 (PFIZER), MRNA, LNP-S, PF, 30 MCG/0.3 ML DOSE 2 2020 208 complet ed [place] [facility] [place] [facility] COVID-19 (PFIZER), MRNA, LNP-S, PF, 30 MCG/0.3 ML DOSE 1 2020 208 complet ed [facility] INFLUENZA, TRIVALENT, ADJUVANTED 2019 168 complet [...] DOSE SEASONAL 2018 135 complet ed Partner: [email or web address]. Administe red by: JUNIOR GUERRERO (FQF=[phone]). Partner 34 Lot#: [id number] Mfr: Sanofi Pasteur; Dosage: 0.5 [facility] [...] Reference Range Date Interpretation Specimen Comments Source BASIC METABOLIC PANEL (non-fast ing) UREA NITROGEN [MASS/VOLUM E] IN SERUM OR PLASMA 21 mg/dL 7 - 25 12/20 Specimen Type: SERUM No comment entered. Ordering Provider: DAMION RADFORD Report Released Date/Time: December 07, 2023 02:55 PM Reporting Lab: [facility] [place] [facility] [address] [facility] [address] Performing Lab: [place] [facility] [place] [facility] [address] [facility] [address] [place] [facility] [place] [facility] BASIC METABOLIC PANEL (non-fast ing) GLUCOSE [MASS/VOLUM E] IN SERUM OR PLASMA 121 mg/dL 65 - 100 12/20 H Specimen Type: SERUM No comment entered. Ordering Provider: DAMION RADFORD Report Released Date/Time: December 07, 2023 02:55 PM Reporting Lab: [address] [address] Performing Lab: [address] [address] [facility] BASIC METABOLIC PANEL (non-fast ing) SODIUM [MOLES/VOLU ME] IN SERUM OR PLASMA 142 mmol/L 135 - 145 12/20 Specimen Type: SERUM No comment entered. Ordering Provider: DAMION RADFORD Report Released Date/Time: December 07, 2023 02:55 PM Reporting Lab: [address] [address] Performing Lab: [address] [address] [facility] BASIC METABOLIC PANEL (non-fast ing) POTASSIUM [MOLES/VOLU ME] IN SERUM OR PLASMA 4.6 mmol/L 3.5 - 5.0 12/20 Specimen Type: SERUM No comment entered. Ordering Provider: DAMION RADFORD Report Released Date/Time: December 07, 2023 02:55 PM Reporting Lab: [facility] [address] [address] Performing Lab: [facility] [address] [address] [facility] BASIC METABOLIC PANEL (non-fast ing) CHLORIDE [MOLES/VOLU ME] IN SERUM OR PLASMA 110 mmol/L 100 - 110 12/20 Specimen Type: SERUM No comment entered. Ordering Provider: DAMION RADFORD Report Released Date/Time: December 07, 2023 02:55 PM Reporting Lab: [address] [place] [address] Performing Lab: [facility] [address] [facility] [address] [facility] W[facility]N [facility]ITALUSE [facility] BASIC METABOLIC PANEL (non-fast ing) CARBON DIOXIDE, TOTAL [MOLES/VOLU ME] IN SERUM OR PLASMA 25 meq/L 20 - 30 12/20 Specimen Type: SERUM No comment entered. Ordering Provider: DAMION RADFORD Report Released Date/Time: December 07, 2023 02:55 PM Reporting Lab: [facility] [address] [facility] [address] Performing Lab: [facility]PITALRUSA [facility] PROVIDENCE HOSPITALTRN [facility]ITALUSER[facility] [address] [facility] [address] [facility] BASIC METABOLIC PANEL (non-fast ing) CREATININE [MASS/VOLUM E] IN SERUM OR PLASMA 1.12 mg/dL 0.50 - 1.40 12/20 Specimen Type: SERUM No comment entered. Ordering Provider: DAMION RADFORD Report Released Date/Time: December 07, 2023 02:55 PM Reporting Lab: [facility]ITALRUSA [facility] HOSPITALTRN [facility]ITALUSE[address] [address] Performing Lab: [facility]ITALRL TRN [facility]ITALUSE[address] [address] [facility]ITALUSE [facility] BASIC METABOLIC PANEL (non-fast ing) GLOMERULAR FILTRATION RATE/1.73 SQ M.PREDICTED [VOLUME RATE/AREA] IN SERUM, PLASMA OR BLOOD BY CREATININE- BASED FORMULA (CKD-EPI 2020) 64 mL/min 60 12/20 Specimen Type: SERUM No comment entered. Ordering Provider: DAMION RADFORD Report Released Date/Time: December 07, 2023 02:55 PM Reporting Lab: [facility]ITALRL TRN [facility]PITALUSETS [address] [address] Performing Lab: [facility]ITALRL TRN [facility]ITALUSE[address] [address] [facility] HOSPITALRD.W. [facility] HOSPITALN [facility]OSPITALUSE [facility] CBC LEUKOCYTES [#/VOLUME] IN BLOOD BY AUTOMATED COUNT 7.63 10*3/u L 4.50 - 11.00 12/20 Specimen Type: BLOOD No comment entered. Ordering Provider: DAMION RADFORD Report Released Date/Time: December 07, 2023 02:55 PM Reporting Lab: [facility] [place] [facility] [address] [facility] [address] Performing Lab: [facility] [place] [facility] [address] [facility] [address] [facility] [place] [facility] CBC ERYTHROCYTE S [#/VOLUME] IN BLOOD BY AUTOMATED COUNT 4.98 10*6/u L 4.23 - 5.66 12/20 Specimen Type: BLOOD No comment entered. Ordering Provider: DAMION RADFORD Report Released Date/Time: December 07, 2023 02:55 PM Reporting Lab: [facility] [place] [address] [address] Performing Lab: [facility] [place] [address] [address] [place] [facility] [place] [facility] CBC HEMOGLOBIN [MASS/VOLUM E] IN BLOOD 14.0 g/dL 12.8 - 17 12/20 Specimen Type: BLOOD No comment entered. Ordering Provider: DAMION RADFORD Report Released Date/Time: December 07, 2023 02:55 PM Reporting Lab: [facility] [place] [address] [address] Performing Lab: [facility] [place] [address] [address] [facility] [place] [facility] CBC HEMATOCRIT [VOLUME FRACTION] OF BLOOD BY AUTOMATED COUNT 42.5 39.2 - 50.4 12/20 Specimen Type: BLOOD No comment entered. Ordering Provider: DAMION RADFORD Report Released Date/Time: December 07, 2023 02:55 PM Reporting Lab: [facility] [place] [address] [address] Performing Lab: [facility] [place] [address] [address] [facility] [place] [facility] CBC MCV [ENTITIC VOLUME] BY AUTOMATED COUNT 85.3 fL 82 - 99 12/20 Specimen Type: BLOOD No comment entered. Ordering Provider: DAMION RADFORD Report Released Date/Time: December 07, 2023 02:55 PM Reporting Lab: [facility] [place] [address] [address] Performing Lab: [facility] [place] [facility] [address] [facility] [address] [facility] [place] [facility] CBC MCHC [MASS/VOLUM E] BY AUTOMATED COUNT 32.9 g/dL 30.8 - 35.1 12/20 Specimen Type: BLOOD No comment entered. Ordering Provider: DAMION RADFORD Report Released Date/Time: December 07, 2023 02:55 PM Reporting Lab: [place] [facility] [place] [address] [address] Performing Lab: [place] [facility] [place] [facility] [address] [facility] [address] [place] [facility] [place] [facility] CBC PLATELETS [#/VOLUME] IN BLOOD BY AUTOMATED COUNT 237 10*3/u L 140 - 360 12/20 Specimen Type: BLOOD No comment entered. Ordering Provider: DAMION RADFORD Report Released Date/Time: December 07, 2023 02:55 PM Reporting Lab: [place] [facility] [place] [address] [address] Performing Lab: [facility] [place] [facility] [address] [facility] [address] [place] [facility] [place] [facility] CBC ERYTHROCYTE DISTRIBUTIO N WIDTH [RATIO] BY AUTOMATED COUNT 14.1 12.0 - 16.0 12/20 Specimen Type: BLOOD No comment entered. Ordering Provider: DAMION RADFORD Report Released Date/Time: December 07, 2023 02:55 PM Reporting Lab: [place] [facility] [place] [address] [address] Performing Lab: [facility] [place] [facility] [address] [facility] [address] [facility] [place] [facility] CBC MCH [ENTITIC MASS] BY AUTOMATED COUNT 28.1 pg 26.2 - 32.6 12/20 Specimen Type: BLOOD No comment entered. Ordering Provider: DAMION RADFORD Report Released Date/Time: December 07, 2023 02:55 PM Reporting Lab: [facility] [place] [facility] [address] [facility] [address] Performing Lab: [facility]ITALRL [facility] [place] [facility] [address] [facility] [address] [facility] HOSPITALRD.W. M[facility]ILL[facility] HOSPITALN [place] [facility] LIPID PANEL, NON FASTING CHOLESTEROL [MASS/VOLUM E] IN SERUM OR PLASMA 147 mg/dL 12/20 Specimen Type: SERUM No comment entered. Ordering Provider: DAMION RADFORD Report Released Date/Time: December 07, 2023 02:55 PM Reporting Lab: [facility]ITALRUSA [facility]OSPITALTRN [place] [facility] [address] [facility] [address] Performing Lab: [facility]RL [facility] [place] [address] [address] [facility]OSPITALRD.W. MCMILL[facility] HOSPITALN [facility] SYSTEMCHUSE [facility] LIPID PANEL, NON FASTING TRIGLYCERID E [MASS/VOLUM E] IN SERUM OR PLASMA 76 mg/dL 0 - 150 12/20 Specimen Type: SERUM No comment entered. Ordering Provider: DAMION RADFORD Report Released Date/Time: December 07, 2023 02:55 PM Reporting Lab: [facility] [place] [facility] [address] [facility] [address] Performing Lab: [facility]ITALRL [facility] [place] [facility] [address] [facility] [address] [facility]OSPITALRD.W. [facility]PITALN [place] [facility] LIPID PANEL, NON FASTING CHOLESTEROL IN LDL [MASS/VOLUM E] IN SERUM OR PLASMA BY CALCULATION 78 mg/dL 0 - 129 12/20 Specimen Type: SERUM No comment entered. Ordering Provider: DAMION RADFORD Report Released Date/Time: December 07, 2023 02:55 PM Reporting Lab: [facility]ITAL[facility] [place] [facility] [address] [facility] [address] Performing Lab: [facility]OSPITALRL TRN [facility]PITALUSETS [facility] [address] [facility] [address] [facility] HOSPITALRD.W. MCMILL[facility] HOSPITALN [facility]ITALUSE [facility] LIPID PANEL, NON FASTING CHOLESTEROL .TOTAL/CHOL ESTEROL IN HDL [MASS RATIO] IN SERUM OR PLASMA 2.7 12/20 Specimen Type: SERUM No comment entered. Ordering Provider: DAMION RADFORD Report Released Date/Time: December 07, 2023 02:55 PM Reporting Lab: [facility]PITALRL TRN [facility]OSPITALUSETS [facility] [address] [facility] [address] Performing Lab: [facility]OSPITALRL TRN [facility]OSPITALUSEROSWE[facility] [address] [facility] [address] [facility]N [facility]OSPITALUSE [facility] LIPID PANEL, NON FASTING CHOLESTEROL IN HDL [MASS/VOLUM E] IN SERUM OR PLASMA 54 mg/dL 40 - 60 12/20 Specimen Type: SERUM No comment entered. Ordering Provider: DAMION RADFORD Report Released Date/Time: December 07, 2023 02:55 PM Reporting Lab: [facility]PITALRL TRN [facility] HOSPITALUSETS [facility] [address] [facility] [address] Performing Lab: [facility]OSPITALRL TRN [facility] HOSPITALUSETS [facility] [address] [facility] [address] [facility]OSPITALRD.W. [facility]PITALN [facility] LIVER FUNCTION PROTEIN [MASS/VOLUM E] IN SERUM OR PLASMA 6.1 g/dL 6.0 - 8.3 12/20 Specimen Type: SERUM No comment entered. Ordering Provider: DAMION RADFORD Report Released Date/Time: December 07, 2023 02:55 PM Reporting Lab: [facility]RL [facility] [place] [facility] [address] [facility] [address] Performing Lab: [facility]OSPITALRL TRN [facility]OSPITALUSETS [facility] [address] [facility] [address] [facility]OSPITALRD.W. MCMILL[facility] HOSPITALN [facility]ITALUSE [facility] LIVER FUNCTION ALBUMIN [MASS/VOLUM E] IN SERUM OR PLASMA 3.3 g/dL 3.5 - 5.0 12/20 L Specimen Type: SERUM No comment entered. Ordering Provider: DAMION RADFORD Report Released Date/Time: December 07, 2023 02:55 PM Reporting Lab: [facility] [place] [facility] [address] [facility] [address] Performing Lab: [facility] [place] [facility] [address] [facility] [address] [facility] [place] [facility] LIVER FUNCTION ALKALINE PHOSPHATASE [ENZYMATIC ACTIVITY/VO LUME] IN SERUM OR PLASMA 64 U/L 40 - 150 12/20 Specimen Type: SERUM No comment entered. Ordering Provider: DAMION RADFORD Report Released Date/Time: December 07, 2023 02:55 PM Reporting Lab: [facility] [place] [facility] [address] [facility] [address] Performing Lab: [facility] [place] [facility] [address] [facility] [address] [facility] [place] [facility] LIVER FUNCTION ASPARTATE AMINOTRANSF ERASE [ENZYMATIC ACTIVITY/VO LUME] IN SERUM OR PLASMA 12 U/L 5 - 34 12/20 Specimen Type: SERUM No comment entered. Ordering Provider: DAMION RADFORD Report Released Date/Time: December 07, 2023 02:55 PM Reporting Lab: [facility] [place] [facility] [address] [facility] [address] Performing Lab: [facility] [place] [facility] [address] [facility] [address] [facility] [place] [facility] LIVER FUNCTION ALANINE AMINOTRANSF ERASE [ENZYMATIC ACTIVITY/VO LUME] IN SERUM OR PLASMA 13 U/L 12/20 Specimen Type: SERUM No comment entered. Ordering Provider: DAMION RADFORD Report Released Date/Time: December 07, 2023 02:55 PM Reporting Lab: [facility] [place] [facility] [address] [facility] [address] Performing Lab: [facility] [place] [facility] [address] [facility] [address] [facility] [place] [facility] LIVER FUNCTION BILIRUBIN.T OTAL [MASS/VOLUM E] IN SERUM OR PLASMA 0.4 mg/dL 0.2 - 1.2 06/05 /2024 Specimen Type: SERUM No comment entered. Ordering Provider: DAMION RADFORD Report Released Date/Time: December 07, 2023 02:55 PM Reporting Lab: [facility] [place] [facility] [address] [facility] [address] Performing Lab: [place] [facility] [place] [address] [address] [place] [facility] [place] [facility] PT & INR (PROTIME) INR IN PLATELET POOR PLASMA BY COAGULATION ASSAY 1.1 12/20 Specimen Type: PLASMA No comment entered. Ordering Provider: DAMION RADFORD Report Released Date/Time: December 07, 2023 02:55 PM Reporting Lab: [place] [facility] [place] [address] [address] Performing Lab: [place] [facility] [place] [address] [address] [facility]RL W[facility]N [place] [facility] PT & INR (PROTIME) PROTHROMBIN TIME (PT) 12.6 s 10.0 - 13.1 12/20 Specimen Type: PLASMA No comment entered. Ordering Provider: DAMION RADFORD Report Released Date/Time: December 07, 2023 02:55 PM Reporting Lab: [place] [facility] [place] [address] [address] Performing Lab: [place] [facility] [place] [place] [address] [address] [facility]RL W[facility]N [place] [facility] BASIC METABOLIC PANEL (fasting) UREA NITROGEN [MASS/VOLUM E] IN SERUM OR PLASMA 20 mg/dL 7 - 04/11 Specimen Type: SERUM No comment entered. Ordering Provider: DAMION RADFORD Report Released Date/Time: Mar 31, 2023 02:14 PM Reporting Lab: [place] [facility] [place] [address] [address] Performing Lab: [place] [facility] [place] [address] [address] [place] [facility] [place] [facility] BASIC METABOLIC PANEL (fasting) GLUCOSE [MASS/VOLUM E] IN SERUM OR PLASMA 101 mg/dL 65 - 100 04/11 H Specimen Type: SERUM No comment entered. Ordering Provider: DAMION RADFORD Report Released Date/Time: Mar 31, 2023 02:14 PM Reporting Lab: [facility] [address] [address] Performing Lab: [facility] [address] [address] [facility] BASIC METABOLIC PANEL (fasting) SODIUM [MOLES/VOLU ME] IN SERUM OR PLASMA 143 mmol/L 135 - 145 04/11 Specimen Type: SERUM No comment entered. Ordering Provider: DAMION RADFORD Report Released Date/Time: Mar 31, 2023 02:14 PM Reporting Lab: [address] [address] Performing Lab: [address] [address] [facility] BASIC METABOLIC PANEL (fasting) POTASSIUM [MOLES/VOLU ME] IN SERUM OR PLASMA 3.9 mmol/L 3.5 - 5.0 04/11 Specimen Type: SERUM No comment entered. Ordering Provider: DAMION RADFORD Report Released Date/Time: Mar 31, 2023 02:14 PM Reporting [facility]: [facility] [address] [address] Performing Lab: [facility] [address] [address] [facility] BASIC METABOLIC PANEL (fasting) CHLORIDE [MOLES/VOLU ME] IN SERUM OR PLASMA 107 mmol/L 100 - 110 04/11 Specimen Type: SERUM No comment entered. Ordering Provider: DAMION RADFORD Report Released Date/Time: Mar 31, 2023 02:14 PM Reporting Lab: [address] [address] Performing Lab: [facility] [address] [facility] [address] [facility] BASIC METABOLIC PANEL (fasting) CARBON DIOXIDE, TOTAL [MOLES/VOLU ME] IN SERUM OR PLASMA 26 meq/L 20 - 30 04/11 Specimen Type: SERUM No comment entered. Ordering Provider: DAMION RADFORD Report Released Date/Time: Mar 31, 2023 02:14 PM Reporting Lab: [facility] [address] [facility] [address] Performing Lab: [facility] [address] [address] [place] [facility] BASIC METABOLIC PANEL (fasting) CREATININE [MASS/VOLUM E] IN SERUM OR PLASMA 1.16 mg/dL 0.50 - 1.40 04/11 Specimen Type: SERUM No comment entered. Ordering Provider: DAMION RADFORD Report Released Date/Time: Mar 31, 2023 02:14 PM Reporting Lab: [facility] [address] [address] Performing Lab: [facility] [address] [address] [facility] BASIC METABOLIC PANEL (fasting) GLOMERULAR FILTRATION RATE/1.73 SQ M.PREDICTED [VOLUME RATE/AREA] IN SERUM, PLASMA OR BLOOD BY CREATININE- BASED FORMULA (CKD-EPI 2020) 62 mL/min 60 04/11 Specimen Type: SERUM No comment entered. Ordering Provider: DAMION RADFORD Report Released Date/Time: Mar 31, 2023 02:14 PM Reporting Lab: [facility] [address] [address] [facility]forming [facility]: [facility] [address] [address] [facility] CBC LEUKOCYTES [#/VOLUME] IN BLOOD BY AUTOMATED COUNT 9.67 10*3/u L 4.50 - 11.00 04/11 Specimen Type: BLOOD No comment entered. Ordering Provider: DAMION RADFORD Report Released Date/Time: Mar 31, 2023 02:14 PM Reporting Lab: [facility] [place] [facility] [address] [facility] [address] Performing Lab: [facility] [place] [facility] [address] [facility] [address] [facility] CBC ERYTHROCYTE S [#/VOLUME] IN BLOOD BY AUTOMATED COUNT 4.73 10*6/u L 4.23 - 5.66 04/11 Specimen Type: BLOOD No comment entered. Ordering Provider: DAMION RADFORD Report Released Date/Time: Mar 31, 2023 02:14 PM Reporting Lab: [facility] [place] [address] [address] Performing Lab: [facility] [place] [address] [address] [facility] CBC HEMOGLOBIN [MASS/VOLUM E] IN BLOOD 13.7 g/dL 12.8 - 17 04/11 Specimen Type: BLOOD No comment entered. Ordering Provider: DAMION RADFORD Report Released Date/Time: Mar 31, 2023 02:14 PM Reporting Lab: [facility] [place] [address] [address] Performing Lab: [facility] [place] [address] [address] [facility] CBC HEMATOCRIT [VOLUME FRACTION] OF BLOOD BY AUTOMATED COUNT 42.1 39.2 - 50.4 04/11 Specimen Type: BLOOD No comment entered. Ordering Provider: DAMION RADFORD Report Released Date/Time: Mar 31, 2023 02:14 PM Reporting Lab: [facility] [place] [address] [address] Performing Lab: [facility] [place] [address] [address] [facility] [place] CBC MCV [ENTITIC VOLUME] BY AUTOMATED COUNT 89.0 fL 82 - 99 04/11 Specimen Type: BLOOD No comment entered. Ordering Provider: DAMION RADFORD Report Released Date/Time: Mar 31, 2023 02:14 PM Reporting Lab: [facility] [place] [facility] [address] [facility] [address] Performing Lab: [facility] [place] [facility] [address] [facility] [address] [facility] [place] [facility] CBC MCHC [MASS/VOLUM E] BY AUTOMATED COUNT 32.5 g/dL 30.8 - 35.1 04/11 Specimen Type: BLOOD No comment entered. Ordering Provider: DAMION RADFORD Report Released Date/Time: Mar 31, 2023 02:14 PM Reporting Lab: [facility] [place] [facility] [address] [facility] [address] Performing Lab: [facility] [place] [address] [address] [facility] [place] [facility] CBC PLATELETS [#/VOLUME] IN BLOOD BY AUTOMATED COUNT 175 10*3/u L 140 - 360 04/11 Specimen Type: BLOOD No comment entered. Ordering Provider: DAMION RADFORD Report Released Date/Time: Mar 31, 2023 02:14 PM Reporting Lab: [facility] [place] [address] [address] Performing Lab: [facility] [place] [facility] [address] [facility] [address] [facility] [place] [facility] CBC ERYTHROCYTE DISTRIBUTIO N WIDTH [RATIO] BY AUTOMATED COUNT 13.4 12.0 - 16.0 04/11 Specimen Type: BLOOD No comment entered. Ordering Provider: DAMION RADFORD Report Released Date/Time: Mar 31, 2023 02:14 PM Reporting Lab: [facility] [place] [facility] [address] [facility] [address] Performing Lab: [facility] [place] [facility] [address] [place] [address] [facility] [place] [facility] CBC MCH [ENTITIC MASS] BY AUTOMATED COUNT 29.0 pg 26.2 - 32.6 04/11 Specimen Type: BLOOD No comment entered. Ordering Provider: DAMION RADFORD Report Released Date/Time: Mar 31, 2023 02:14 PM Reporting Lab: [facility] [address] [facility] [address] Performing Lab: [facility] [address] [facility] [address] [facility] PT & INR (PROTIME) INR IN PLATELET POOR PLASMA BY COAGULATION ASSAY 1.0 04/11 Specimen Type: PLASMA No comment entered. Ordering Provider: DAMION RADFORD Report Released Date/Time: Mar 31, 2023 02:14 PM Reporting Lab: [facility] [address] Performing Lab: [facility] [address] [facility] PT & INR (PROTIME) PROTHROMBIN TIME (PT) 11.6 s 10.0 - 13.1 04/11 Specimen Type: PLASMA No comment entered. Ordering Provider: DAMION RADFORD Report Released Date/Time: Mar 31, 2023 02:14 PM Reporting Lab: [facility] [address] Performing Lab: [facility] [address] [facility] THYROID T4 FREE(FT4) THYROXINE (T4) FREE [MASS/VOLUM E] IN SERUM OR PLASMA 0.85 ng/dL 0.6 - 1.6 04/11 Specimen Type: SERUM No comment entered. Ordering Provider: DAMION RADFORD Report Released Date/Time: Mar 31, 2023 02:14 PM Reporting Lab: [facility] [address] [facility] [address] Performing Lab: [facility] [place] [facility] [address] [facility] [address] [facility] TSH THYROTROPIN [UNITS/VOLU ME] IN SERUM OR PLASMA 2.58 u[IU]/ mL 0.35 - 5.00 04/11 Specimen Type: SERUM No comment entered. Ordering Provider: DAMION RADFORD Report Released Date/Time: Mar 31, 2023 02:14 PM Reporting Lab: [facility] [place] [facility] [address] [facility] [address] Performing Lab: [facility] [place] [facility] [address] [facility] [address] [facility] [place] [facility] Vital Signs Combined list of inpatient and outpatient Vital Signs from Department of Defense and Veterans Affairs, ranging from 12 months to all on record, depending upon the facility. Vital Sign Value Date Comments Source SYSTOLIC BLOOD PRESSURE 130 06/22/20 24 09:04:01 [facility] DIASTOLIC BLOOD PRESSURE 80 024 09:04:01 [facility] PULSE OXIMETRY 95 06/22/2024 09:04:01 [facility] WEIGHT 148 06/22/2024 09:04:01 [facility] BMI 25 kg/m2 06/22/2024 09:04:01 [facility] PAIN 0 06/22/2024 09:04:01 [facility] HEIGHT 64 06/22/2024 09:04:01 [facility] TEMPERATURE 97.3 06/22/2024 09:04:01 [facility] PULSE 50 06/22/2024 09:04:01 [facility] RESPIRATION 20 06/22/2024 09:04:01 [facility] [place] SYSTOLIC BLOOD PRESSURE 136 12/21/19 24 09:48:03 [facility] [place] DIASTOLIC BLOOD PRESSURE 76 024 09:48:03 [facility] [id number] 04/15 [facility] En[facility] [id number] 04/20 [facility] En[facility] [id number] 05/02 [facility] HEARING AID REPAIR/MOD IFYING [id number] Diagnos is: ICD-10- CM Z46.1 Encount er for fitting and adjustm ent of hearing aid HEMA JENKINS 06/02 [facility] OFFICE O/P EST LOW 20-29 MIN [id number] Diagnos is: ICD-10- CM Z79.01 retirement () use of anticoa Robert Trammell 06/27 [facility] En[facility] [id number] 08/16 [facility] [place] En[facility] [id number] 09/02 [facility] [place] Encounter [id number] Diagnos is: ICD-10- CM Z02.89 Encount er for other adminis trative examina tions ABDELRAHMAN SALDANA L 12/19 [facility] HEARING AID REPAIR/MOD IFYING [id number] Diagnos is: ICD-10- CM H90.3 Sensori neural hearing loss, bilater al ABDELRAHMAN SALDANA L 12/19 [facility] OFF[facility] O/P EST LOW 20 MIN [id number] Diagnos is: ICD-10- CM 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 Diagnos is: ICD-10- CM Z46.1 Encount er for fitting and adjustm ent of hearing aid ELISA KNIGHT 03/05 [facility] [id number] 1.04/26 [facility] En[facility] [id number] 1.05/17 [facility] HEARING AID FITTING/CH ECKING [id number] 1. Diagnos is: ICD-10- CM Z46.1 Encount er for fitting and adjustm ent of hearing aid ELISA KNIGHT 06/08 [facility] HEARING AID REPAIR/MOD IFYING [id number] 1. Diagnos is: ICD-10- CM Z46.1 Encount er for fitting and adjustm ent of hearing aid JOHANNA LYNCHShamar DESTINEE HODGES 06/22 [facility] [place] [facility] OFFICE O/P EST MOD 30 MIN [id number] 1. 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 Social History Type Response Date Comment Sourc e Tobacco smoking status NHIS VA-TOBACCO NEVER USED 12/21/2023 [facility] [place] [facility] History of tobacco use VA-TOBACCO NEVER USED 10/14/2022 [facility] [place] [facility] History of tobacco use VA-TOBACCO NEVER USED 10/07/2021 [facility] [place] [facility] History of tobacco use AK-TOBACCO NEVER USED 09/26/2020 [facility] [place] [facility] History of tobacco use AK-TOBACCO NEVER USED 08/14/2019 [facility] [place] [facility] History of tobacco use VA-TOBACCO NEVER USED 06/14/2018 [facility] [place] [facility] History of tobacco use LIFETIME NON-TOBACCO USER 03/30/2017 [facility] [place] [facility] History of tobacco use LIFETIME NON-TOBACCO USER 12/26/2015 [facility] [place] [facility] Plan of Care List of future care activities from Department of Veterans Affairs facilities. Additional future care activities may be listed in the Assessment and Plan section. Date/Time Care Activity Care Activity Detail Facili ty 12/21/2024 AMBULATORY - MEDICINE AMBULATORY - MEDICI NE [facility] Advance Directives List of completed, amended, or rescinded Advance Directives on record at Department of Veterans Affairs facilities. An actual copy of the Directive is not included. Date Advance Directive Provider Source 02/18/2020 ADVANCE DIRECTIVE FERCHO DE LA CRUZ [facility]
--- OUTSIDE RECORDS SUMMARY | 2024-10-11 12:27 | XMS_ITS ---
Author Name [facility] [place] [facility] [place] [facility] [place] Address [address] [place] [address] Care Team Providers Care Land Planner Name Role Phone PAMELA RADFORD Primary Care Provider Unavaila [facility] Insurance Providers: All historical and [...] Name Patient's Relationship to Policy Pete [facility] ([facility]) MEDICARE ADVANTAGE MCR ([facility]) Jul 18, 2019 [id number] JUAN CARLOS,OCHOA JAQUELINE PATIENT [facility] (W[facility]) MEDICARE ADVANTAGE MCR (R) Jul 18, 2019 [id number] JUAN CARLOS,OCHOA CORRIEWilliam PATIENT [facility] (WNR) MEDICARE ADVANTAGE MCR (WNR) Jul 18, 2019 [id number] OCHOA RANGEL PATIENT [facility] ([place]) MEDICARE ADVANTAGE MCR ([facility]) Jul 18, 2017 [id number] OCHOA RANGEL PATIENT Selected Encounter This section includes the information on record at [place] for the Encounter. Date/Time Encounter Type Encounter Description Reason Provider Source Mar 05, 2024 10:30 AM HEARING AID REPAIR/MODIFYIN G AUDIOLOGY ICD-10-CM Z46.1 Encounter for fitting and adjustment of hearing aid KRIS KNIGHT Talat Encounter Template Text not used by [place] Assessments - Encounter Diagnoses This section includes the primary and secondary diagnoses documented for the Encounter. Date/Time Primary/Secondary Diagnosis Diagnosis Name Provider Source Mar 05, 2024 11:05 AM PRIMARY Encounter for fitting and adjustment of hearing aid ISHAAN SHAH LILIA [facility] Mar 05, 2024 11:05 AM SECONDARY Sensorineural hearing loss, bilateral ISHAAN SHAH LILIA [facility] Plan of Treatment: Future Appointments (+ 6 months) and Future Tests (+/- 45 days) The Plan of Treatment section includes future care activities for the patient from [facility] [place] [facility] This section includes future appointments and [...] 01:00 PM AMBULATORY - REHAB MEDICIN E [facility] Jun 22, 2024 08:30 AM [facility] Jun 22, 2024 09:30 AM AMBULATORY - MEDICINE [facility] Social History: Smoking Status (Most current) [...] 21, 2023 10:00 AM VA-TOBACCO NEVER USED [facility] Tobacco Use History This section includes a history of the smoking, or tobacco-related health factors, that were collected on or before the date of the Encounter. The data comes from the [place] facility where the Encounter took place. Date/Time Smoking Status/Tobacco Use Comment F acility Oct 14, 2022 08:30 AM VA-TOBACCO NEVER USED [facility] [place] [facility] Oct 07, 2021 03:00 PM VA-TOBACCO NEVER USED [facility] [place] [facility] Sep 26, 2020 09:00 AM VA-TOBACCO NEVER USED [facility] [place] [facility] Aug 14, 2019 02:17 PM VA-TOBACCO NEVER USED [facility] [place] [facility] Jun 14, 2018 10:41 AM VA-TOBACCO NEVER USED [facility] [place] [facility] Mar 30, 2017 09:18 AM LIFETIME NON-TOBACCO USER [facility] [place] [facility] Dec 26, 2015 09:53 AM LIFETIME NON-TOBACCO USER [facility] [place] [facility] Advance Directives: All historical and current [...] ADVANCE DIRECTIVE SANAMAYITOFERCHO SANTANA [facility] [place] [facility] Encounter Notes: All associated encounter notes This section contains the clinical notes associated to the Encounter. Date/Time Encounter Note(s) Provider Source Mar 05, 2024 07:52 AM AUDIOLOGY NOTE: LOCAL TITLE: AUDIOLOGY HEALTH [employer] UN[employer] ENGINEER STANDARD TITLE: AUDIOLOGY NOTE DATE OF NOTE: MAR 05, 2024@07:52 ENTRY DATE: MAR 05, 2024@07:52:30 AUTHOR: SEEMA SHAH EXP COSIGNER: KRIS KNIGHT URGENCY: STATUS: COMPLETED March 05, 2024 History/Background: [place] was seen for a hearing aid follow up, unaccompanied. scheduled today's appointment reporting his hearing aids are not working and requesting new tubes. also reported feedback and volume too loud with the new hearing aids. [place] came in today wearing his back up pair. Hearing aids: [employer] POWER+ BTEs Serial Numbers: [id number] Battery size: 13 Date Issued: 01/16/2024 AND Hearing aids: Derek ARROYO BTEs Serial Numbers: [id number] Battery size: 13 Date Issued: 01/16/2021 Hearing [...] clinic to schedule an appointment with the Production Associate for adjustments. Plan: will contact the clinic for programming adjustments with an Production Associate as needed. /maciel/ SEEMA SHAH Audiology Health City Attorney Signed: 03/05/2024 11:05 /YUMIKO Garay, CCC-A STAFF LUMBER MOVER Cosigned: 03/05/2024 11:35 SEEMA SHAH [facility]
--- OUTSIDE RECORDS SUMMARY | 2024-10-11 12:27 | XMS_ITS ---
Author Name [facility] [place] Organization [place] Address [address] [place] [address] Care Team Providers Care Squirrel Worker Name Role Phone PMAELA BOLAÑOS Primary Care Provider Unavaila ble Insurance [...] Name Patient's Relationship to Policy Pete GARRETT [facility] ([facility]) MEDICARE ADVANTAGE MCR ([facility]) Jul 18, 2019 [id number] [phone] OCHOA RANGEL PATIENT [facility] (WNR) MEDICARE ADVANTAGE MCR ([facility]) Jul 18, 2019 [id number] OCHOA RANGEL PATIENT [facility] (WNR) MEDICARE ADVANTAGE MCR (WNR) Jul 18, 2019 [id number] [phone] JUAN CARLOSOCHOA DENTONWilliam PATIENT [facility] (WN) MEDICARE ADVANTAGE MCR ([facility]) Jul 18, 2017 [id number] OCHOA RANGEL PATIENT Selected Encounter This section includes the information on record at [place] for the Encounter. 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 Date/Time Primary/Secondary Diagnosis Diagnosis Name Provider Source Jul 01, 2024 03:03 PM PRIMARY Respiratory bronchiolitis interstitial lung disease BOLAÑOS,WILL ROSS J [facility] Jul 01, 2024 03:03 PM SECONDARY Acute embolism and thombos unsp deep vn unsp lower extremity BOLAÑOS,WILL ROSS [facility] Jul 01, 2024 03:03 PM SECONDARY Essential (primary) hypertension [facility] Jul 01, 2024 03:03 PM SECONDARY Personal history of pulmonary embolism BOLAÑOS,WILL [facility] Plan of Treatment: Future Appointments (+ 6 months) and Future Tests (+/- 45 days) The Plan of Treatment section includes future care activities for the patient from all [place] [facility]. This section includes future appointments and future orders which are active, pending or scheduled. Future Appointments This section includes appointments that were scheduled to occur 6 months from the date of the Encounter, up to a maximum of 20 appointments. The data comes from all [facility] facilities. Appointment Date/Time Appointment Type Appointme nt Facility Name Sep 11, 2024 11:00 AM AMBULATORY - REHAB MEDICIN E [facility] Dec 21, 2024 08:30 AM AMBULATORY - MEDICINE [facility] Active, Pending, and Scheduled Orders This section includes a listing of several types of active, pending, and scheduled orders, including clinic medications orders, diagnostic test orders, procedure orders and consult orders; where the start date of the order is 45 days before the date of the Encounter or 45 days after the date of theEncounter. The data comes from all [facility]. Test Date/Time Test Type Test Details Facility Name Jun 08, 2024 12:00 AM Laboratory - Chemi stry Order CBC BLOOD (LAV-BLOOD) [facility] [place] [facility] Jun 08, 2024 12:00 AM Laboratory - Chemi stry Order BASIC METABOLIC PANEL (non-fasting) BLOOD (SST-SERUM) SP [place] [facility] [place] [facility] Jun 08, 2024 12:00 AM Laboratory - Chemi stry Order LIPID PANEL, NON FASTING BLOOD (SST-SERUM) SP [place] [facility] [place] [facility] Jun 08, 2024 12:00 AM Laboratory - Chemi stry Order PT & INR (PROTIME) BLOOD (BLUE-PLASMA) SP [place] [facility] [place] [facility] Jun 08, 2024 12:00 AM Laboratory - Chemi stry Order LIVER FUNCTION BLOOD (SST-SERUM) [facility] Vital Signs: All taken on the encounter date This section contains inpatient and outpatient Vital Signs collected on the date of the Encounter. Date/Time Temperature Pulse Blood Pressure Respiratory Rate SP02 Pain Height Weight Body Mass Index Source Jun 22, 2024 09:04 AM 97.3 50 130/80 20 95 0 64 148 25 [place] [facility] [place] [facility] Social History: Smoking Status (Most current) and Tobacco Use (All prior to encounter date) This section includes the most current, and the historical, smoking and tobacco- related health factors from the [place] facility where the Encounter took place. Current Smoking Status This section includes the most current smoking, or tobacco-related health factor, from the [place] facility where the Encounter took place. Date/Time Current Smoking Status Comment Facil ity Dec 21, 2023 10:00 AM VA-TOBACCO NEVER USED [facility] Tobacco Use History This section includes a history of the smoking, or tobacco-related health factors, that were collected on or before the date of the Encounter. The data comes from the [place] facility where the Encounter took place. Date/Time Smoking Status/Tobacco Use Comment F acility Oct 14, 2022 08:30 AM VA-TOBACCO NEVER USED [facility] [place] [facility] Oct 07, 2021 03:00 PM VA-TOBACCO NEVER USED [facility] [place] [facility] Sep 26, 2020 09:00 AM VA-TOBACCO [facility] USED [facility] Aug 14, 2019 02:17 PM VA-TOBACCO NEVER USED [facility] [place] [facility] Jun 14, 2018 10:41 AM VA-TOBACCO NEVER USED [place] [facility] [place] [facility] Mar 30, 2017 09:18 AM LIFETIME NON-TOBACCO USER [place] [facility] [place] [facility] Dec 26, 2015 09:53 AM LIFETIME NON-TOBACCO USER [place] [facility] Advance Directives: All historical and current Section Date Range: From patient's date of to the date document was created. This section includes ALL of a patient's completed or amended [place] Advance and Rescinded Directives. The entries below indicate that a directive exists for the patient, but an actual copy is not included with this document. The data comes from all [place] facilities. Date Advance Directives Provider Source Feb 18, 2020 ADVANCE DIRECTIVE KIMBERLYFERCHO MARIAELENA Mckeon [facility] Encounter Notes: All associated encounter notes [...] complaint: Patient is a 84 year old [place]. HPI: Pleasant male here with his to follow up. Allergies: [...] 09:04)BMI: 25.5148 lb [67.13 kg] (06/22/2024 09:04) is alert and oriented X3 Eyes:No scleral [...] Dr Ferreira 2. Deep venous thrombosis - cognos bi developer a/c 3. Polycystic kidney disease, adult type - labs today 4. Essential hypertension - well controlled Today I spent 30 minutes on some or all of the following: chart review, history, physical examination, treatment planning, education and counseling of the patient/family/resident care assistant, placing orders, communicating with other [...] next appointment, whether with a VA or non-[place] provider. /maciel/ Pamela Bolaños DNP, SIGN SHOP SUPERVISOR-BC, CNL Primary Care Nurse Practitioner Signed: 07/01/2024 15:03 PAMELA BOLAÑOS [facility] Jun 22, 2024 09:09 AM PREVENTIVE MEDICINE NURSING NOTE: LOCAL TITLE: CLINICAL REMINDERS/NURSING STANDARD TITLE: PREVENTIVE MEDICINE NURSING NOTE DATE OF NOTE: JUN 22, 2024@09:09 ENTRY DATE: JUN 22, 2024@09:10:04 AUTHOR: JOSEPHINE CASTLE EXP COSIGNER: URGENCY: STATUS: COMPLETED CLINICAL REMINDERS/NURSING Has ADDENDA Advance Directive Screen MH AD: Patient has an Advance Directive on file at this [facility]. No updates are needed at this time. The patient received education about Advance Directives and written notification of his/her rights. RHS Screen: RHS Screen Session Format: Face to Face Environmental Check Screening was not completed at this time due to: Another adult present /neno [facility] Social Science Instructor RFID DEVELOPER,PRIMARY CARE Signed: 06/22/2024 09:11 06/22/2024 ADDENDUM STATUS: COMPLETED Influenza Immunization: The patient has received the seasonal influenza vaccine for the current season at another location. Documented: INFLUENZA, UNSPECIFIED FORMULATION Historical Date Administered: Apr 26, 2024 Outside Location: Outside Healthcare Provider Information Source: FROM PATIENT'S RECALL Comment: per statement from vet /neno [facility] Social Science Instructor RFID DEVELOPER,PRIMARY CARE Signed: 06/22/2024 09:14 JOSEPHINE CASTLE [facility]
--- OUTSIDE RECORDS SUMMARY | 2024-10-11 12:27 | XMS_ITS ---
Author Name [place] Organization [place] Address [address] [place] [address] Care Team Providers Care Jail Guard Name Role Phone PAMELA RADFORD Primary Care Provider Unavaila [facility] Insurance Providers: All historical and current Section [...] Name Patient's Relationship to Policy Pete GARRETT [facility] ([facility]) MEDICARE ADVANTAGE MCR ([facility]) Jul 18, 2019 [id number] JUAN CARLOS,OCHOA JAQUELINE PATIENT [facility] (WNR) MEDICARE ADVANTAGE MCR ([facility]) Jul 18, 2019 [id number] JUAN CARLOS,OCHOA CORRIEWilliam PATIENT [facility] (WNR) MEDICARE ADVANTAGE MCR (R) Jul 18, 2019 [id number] OCHOA RANGEL PATIENT [facility] (WN) MEDICARE ADVANTAGE MCR ([facility]) Jul 18, 2017 [id number] OCHOA RANGEL PATIENT Selected Encounter This [...] and adjustment of hearing aid YANELY LYNCH [facility] Jun 22, 2024 08:54 AM SECONDARY Sensorineural hearing loss, bilateral YANELY LYNCH [facility] Plan of Treatment: Future Appointments (+ 6 months) and Future Tests (+/- 45 days) The Plan of Treatment section includes future care activities for the patient from all [place] [facility]. This section includes future appointments and future orders which are active, pending or scheduled. Future Appointments This section includes appointments that were scheduled to occur 6 months from the date of the Encounter, up to a maximum of 20 appointments. The data comes from all [facility]. Appointment Date/Time Appointment Type Appointme nt Facility Name Sep 11, 2024 11:00 AM AMBULATORY - REHAB MEDICIN E [facility] Dec 21, 2024 08:30 AM AMBULATORY - MEDICINE [facility] Active, Pending, and Scheduled Orders This section includes a listing of several types of active, pending, and scheduled orders, including clinic medications orders, diagnostic test orders, procedure orders and consult orders; where the start date of the order is 45 days before the date of the Encounter or 45 days after the date of theEncounter. The data comes from all [facility]. Test Date/Time Test Type Test Details Facility Name Jun 08, 2024 12:00 AM Laboratory - Chemi stry Order CBC BLOOD (LAV-BLOOD) [facility] Jun 08, 2024 12:00 AM Laboratory - Chemi stry Order BASIC METABOLIC PANEL (non-fasting) BLOOD (SST-SERUM) [facility] Jun 08, 2024 12:00 AM Laboratory - Chemi stry Order LIPID PANEL, NON FASTING BLOOD (SST-SERUM) [facility] Jun 08, 2024 12:00 AM Laboratory - Chemi stry Order PT & INR (PROTIME) BLOOD (BLUE-PLASMA) [facility] [place] [facility] Jun 08, 2024 12:00 AM Laboratory - Chemi stry Order LIVER FUNCTION BLOOD (SST-SERUM) SP [place] [facility] [facility] Vital Signs: All taken on the encounter date This section contains inpatient and outpatient Vital Signs collected on the date of the Encounter. Date/Time Temperature Pulse Blood Pressure Respiratory Rate SP02 Pain Height Weight Body Mass Index Source Jun 22, 2024 09:04 AM 97.3 50 130/80 20 95 0 64 148 25 [facility] [place] [facility] Social History: Smoking Status (Most [...] VA-TOBACCO NEVER USED [facility] [place] [facility] Tobacco Use History This section includes a history of the smoking, or tobacco-related health factors, that were collected on or before the date of the Encounter. The data comes from the [place] facility where the Encounter took place. Date/Time Smoking Status/Tobacco Use Comment F acility Oct 14, 2022 08:30 AM VA-TOBACCO NEVER USED [facility] [place] [facility] Oct 07, 2021 03:00 PM VA-TOBACCO NEVER USED [place] [facility] [place] [facility] Sep 26, 2020 09:00 AM VA-TOBACCO NEVER USED [facility] [place] [facility] Aug 14, 2019 02:17 PM VA-TOBACCO NEVER USED [place] [facility] [place] [facility] Jun 14, 2018 10:41 AM VA-TOBACCO NEVER USED [facility] [place] [facility] Mar 30, 2017 09:18 AM LIFETIME NON-TOBACCO USER [facility] [place] [facility] Dec 26, 2015 09:53 AM LIFETIME [...] 2020 ADVANCE DIRECTIVE FERCHO DE LA CRUZ [facility] Encounter Notes: All associated encounter notes [...] by his . He was fit with [employer] with Evolv AI Power+ BTEs on 01/16/24. He was scheduled today to pick remover new earmolds. HEARING AID CHECK: 's back up Derek Betito Edge AI BTEs (SN:[id number]) were cleaned and checked. Tubes and tone hooks replaced. The new earmold tubes were measured to size on 's ears. Fit of earmolds looked good bilaterally. HEARING AID PROGRAMMING: New hearing aids were connected to [employer] and a feedback test was completed. reported [...] Applicable NA * /maciel/ CHRISTEL LYNCH STAFF AMPOULE EXAMINER Signed: 06/22/2024 08:55 CHRISTEL LYNCH [facility]L [facility]
--- OUTSIDE RECORDS SUMMARY | 2024-10-11 12:27 | XMS_ITS ---
Author Name [place] Address [address] [place] [address] Care Team Providers Care Chief Deputy Coroner Name Role Phone KEVIN BOLAÑOS Primary Care [...] Name Patient's Relationship to Policy Pete GARRETT [facility] (WNR) MEDICARE ADVANTAGE MCR (R) Jul 18, 2019 [id number] OCHOA RANGEL PATIENT [facility] (WNR) MEDICARE ADVANTAGE MCR (WNR) Jul 18, 2019 [id number] [phone] JUAN CARLOS,OCHOA JAQUELINE PATIENT [facility] (WNR) MEDICARE ADVANTAGE MCR (WNR) Jul 18, 2019 [id number] JUAN CARLOSOCHOA JAQEULINE PATIENT [facility] (WNR) MEDICARE ADVANTAGE MCR (WNR) Jul 18, 2017 [id number] OCHOA RANGEL PATIENT Selected Encounter This section includes the information on record at [place] for the Encounter. Date/Time Encounter Type Encounter Description Reason Pro vider Source May 17, 2024 05:42 PM Outpatient Encounter ADMIN PAT ACTIVTIES (MASNONCT) I[facility] Encounter Template Text not used by [place] Plan of Treatment: Future Appointments (+ 6 months) and Future Tests (+/- 45 days) The Plan of Treatment section includes future care activities for the patient from all [place] [facility]. This section includes future appointments and future orders which are active, pending or scheduled. Future Appointments This section includes appointments that were scheduled to occur 6 months from the date of the Encounter, up to a maximum of 20 appointments. The data comes from all [facility]. Appointment Date/Time Appointment Type Appointme nt Facility Name Jun 08, 2024 01:00 PM AMBULATORY - REHAB MEDICIN E [facility] Jun 22, 2024 08:30 AM AMBULATORY - REHAB MEDICIN E [facility] Jun 22, 2024 09:30 AM AMBULATORY - MEDICINE [facility] Sep 11, 2024 11:00 AM AMBULATORY - REHAB MEDICIN E [facility] Active, Pending, and Scheduled Orders This section includes a listing of several types of active, pending, and scheduled orders, including clinic medications orders, diagnostic test orders, procedure orders and consult orders; where the start date of the order is 45 days before the date of the Encounter or 45 days after the date of theEncounter. The data comes from all [facility]. Test Date/Time Test Type Test Details Facility Name Jun 08, 2024 12:00 AM Laboratory - Chemi stry Order CBC BLOOD (LAV-BLOOD) [facility] Jun 08, 2024 12:00 AM Laboratory - Chemi stry Order BASIC METABOLIC PANEL (non-fasting) BLOOD (SST-SERUM) [facility] Jun 08, 2024 12:00 AM Laboratory - Chemi stry Order LIPID PANEL, NON FASTING BLOOD (SST-SERUM) [facility] Jun 08, 2024 12:00 AM Laboratory - Chemi stry Order PT & INR (PROTIME) BLOOD (BLUE-PLASMA) [facility] Jun 08, 2024 12:00 AM Laboratory - Chemi stry Order LIVER FUNCTION BLOOD (SST-SERUM) SP [place] [facility] [facility] Social History: Smoking Status (Most current) and [...] 21, 2023 10:00 AM VA-TOBACCO [facility] Tobacco Use History This section includes a history of the smoking, or tobacco-related health factors, that were collected on or before the date of the Encounter. The data comes from the [place] facility where the Encounter took place. Date/Time Smoking Status/Tobacco Use Comment F acility Oct 14, 2022 08:30 AM VA-TOBACCO NEVER USED [place] [facility] Oct 07, 2021 03:00 PM VA-TOBACCO NEVER USED [place] [facility] Sep 26, 2020 09:00 AM VA-TOBACCO NEVER USED [place] [facility] Aug 14, 2019 02:17 PM VA-TOBACCO NEVER USED [place] [facility] Jun 14, 2018 10:41 AM VA-TOBACCO NEVER USED [place] [facility] Mar 30, 2017 09:18 AM LIFETIME NON-TOBACCO USER [place] [facility] Dec 26, 2015 09:53 AM LIFETIME NON-TOBACCO USER [facility] Advance Directives: All historical and current Section [...] 2020 ADVANCE DIRECTIVE [facility]Z [facility] Encounter Notes: All associated encounter notes This section contains the clinical notes associated to the Encounter. Date/Time Encounter Note(s) Provider Source May 17, 2024 05:42 PM PHARMACY NOTE: LOCAL TITLE: V1 PHARMACY CUSTOMER CARE MEDICATION RENEWAL STANDARD TITLE: PHARMACY NOTE DATE OF NOTE: MAY 17, 2024@17:42 ENTRY DATE: MAY 17, 2024@17:42:59 AUTHOR: MARISA JENKINS COSIGNER: URGENCY: STATUS: COMPLETED Date: Apr Division: [facility] referred by Pharmacy Call Center for medication renewal: Non-controlled/maintenance medication Medications requested: [id number] APIXABAN 2.5MG TAB Defer to primary care provider To be mailed . Please review and renew if appropriate. *This note was generated by [facility] Customer Care. If you have any questions or need assistance, do not contact this author. Please refer all questions to your local, on-site pharmacy departments. /maciel/ MARISA JENKINS [facility] Signed: 05/17/2024 17:43 Receipt Acknowledged By: 05/18/2024 06:42 /es/ Kevin Bolaños DNP, CLOUD DEVELOPER-BC, CNL Primary Care Nurse Practitioner 05/18/2024 12:06 /maciel/ LIDIA RAMIREZ REGISTERED NURSE for AMRISA BOURNE [facility]
== END 2024-10-11 10:18 | disposition home or self-care (01) ==
LOC: HO.HPS 09:59
PROVIDERS: PCP Internal Medicine; Visit Provider Hospitalist
DX: J41.0 Simple chronic bronchitis (principal); R91.8 Other nonspecific abnormal finding of lung field; R06.00 Dyspnea, unspecified; J84.9 Interstitial pulmonary disease, unspecified; G47.10 Hypersomnia, unspecified
CPT/HCPCS: 99214

== ENCOUNTER → 2024-10-11 09:58 | Outpatient (BNVA) | payer MEDICARE, SELFPAY | PROVIDERS: PCP Internal Medicine; Visit Provider Hospitalist | DX: J41.0 Simple chronic bronchitis (principal); J84.9 Interstitial pulmonary disease, unspecified; R91.8 Other nonspecific abnormal finding of lung field; R06.00 Dyspnea, unspecified; G47.10 Hypersomnia, unspecified | CPT/HCPCS: 99212 ==

== ENCOUNTER 2025-05-29 09:47 | Outpatient (AMB) | payer MEDICARE, SELFPAY ==
[2025-05-29 09:51] VITALS: BP 136/60; PULSE 51; O2SAT 96; BMI 24.4
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
--- OUTSIDE RECORDS SUMMARY | 2025-05-29 11:09 | XMS_ITS | Clinical Summary ---
Author Organization [facility] Address [address] [place] [address] Phone Care Team Providers Care Compound Finisher Name Role Phone Selin Logan MD Primary Care Provider + [phone] Allergies Active Allergy Reactions Criticality Noted Date [...] each day in the evening 1 Active apixaban (ELIQUIS) 2.5 MG tablet Take 2.5 mg by mouth 2 (two) times a day Active cyanocobalamin (VITAMIN B-12) 1000 MCG tablet Take 1,000 mcg by mouth 2 (two) times a day Active co-enzyme Q-10 30 MG capsule Take 30 mg by mouth 1 (one) time each day Active amLODIPine (NORVASC) 5 MG tablet Take 1 tablet (5 mg total) by mouth 1 (one) time each day 3 1 Active citalopram (CeleXA) 10 MG tablet Take 10 mg by mouth 1 (one) time each day 3 Active methylphenidat e (RITALIN) 5 MG tablet Take 5 mg by mouth 1 (one) time each day Active aspirin (ST SHAISTA) 81 MG EC tablet Take 81 mg by mouth 1 (one) time each day Active cholecalcifero l (D3) 50 MCG (2000 UT) tablet Take 2,000 Units by mouth 1 (one) time each day Active ezetimibe (ZETIA) 10 MG tablet Take 10 mg by mouth 1 (one) time each day Active olmesartan (BENICAR) 20 MG tablet TAKE 1 TABLET(20 MG) BY MOUTH EVERY DAY 90 tablet 3 5 Active olmesartan (BENICAR) 20 MG tablet TAKE 1 TABLET(20 MG) BY MOUTH EVERY DAY 90 tablet 3 4 05/22/20 25 Discontinued Active Problems Problem Noted Date Diagnosed Date Chronic kidney disease, 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 Allergic rhinitis [...] disease 04/07/2023 04/07/2023 Daytime somnolence 04/07/2023 04/07/2023 Acute embolism and thrombosi s of unspecified deep veins of unspecified lower extremity 04/07/2023 Epiretinal membrane 04/07/2023 04/07/2023 Fatigue 04/07/2023 04/07/2023 [...] cognition 04/07/2023 04/07/2023 Impotence of organic origin 04/07/202303/19 Inflammation of rotator cuff tendon 04/07/2023 04/07/2023 [...] 02/17/2021 Hypertensive disorder 02/17/2021 Polycystic kidney 02/17/2021 Encounters Date Type Department Care Team Description 05/22/2025 Refill [facility] [address] [place] [id number] Osei Herrera MD from Last 3 Months Immunizations Immunization Administration Dates Next Due Influenza Whole 04/18/2019,04/29/2016 Influenza, Unspecified 04/06/2021,2019,03/21/2018,04/02/2017,03/18 Pfizer SARS-COV-2 11/10/2021,07/08/2021,09/13/19,08/22/2020 Pneumococcal Polysaccharide 10/13/2018, 6 Tdap 09/05/2021,07/18/2007 Zoster [...] Sign Reading Time Taken Comments Blood Pressure 109/54 01/03/2025 2:03 PM EDT Pulse 55 01/03/2025 2:03 PM EDT Temperature - - Respiratory Rate - - Oxygen Saturation 95% 02/20/2021 12:16 PM EDT Inhaled Oxygen Concentration - - Weight 65.8 kg (145 lb) 01/03/2025 2:03 PM EDT Height 165.1 cm (5' 5 ) 02/20/2021 12:16 PM EDT Body Mass Index 24.13 02/20/2021 12:16 PM EDT Plan of Treatment Upcoming Encounters Date Type Department Care Team (Late st Contact Info) Description 01/02/2026 2:15 PM EDT Office Visit [facility] [address] [place] [address] Wili Zimmer MD [id number] [facility] [address] [place] [phone] Health Maintenance Due Date Last Done Comments Influenza Vaccine (#1) 2025 , 04/27/2023, 04/20/2023, Additional history exists Pneumococcal Vaccine: 50+ Years Completed 03/07/2023, 10/13/2018, 12/19/2015, Additional history exists Pneumococcal Vaccine: Peds (0 to 5 Years) and At-Risk Patients (6 to 49 Years) Discontinued 03/07/2023, 10/13/2018, 12/19/2015, Additional history exists Hepatitis B Vaccine Aged Out No longe r eligible based on patient's age to complete this topic Insurance [facility] Care Teams Compound Finisher Relationship Specialty Start Date End Date Selin Logan MD [address] [place] [address] PCP - General 07/28/20
== END 2025-05-29 10:18 | disposition home or self-care (01) ==
PROVIDERS: PCP Internal Medicine; Visit Provider Hospitalist
DX: J44.1 Chronic obstructive pulmonary disease with (acute) exacerbation (principal); R91.8 Other nonspecific abnormal finding of lung field; R06.00 Dyspnea, unspecified; J84.9 Interstitial pulmonary disease, unspecified; G47.10 Hypersomnia, unspecified
CPT/HCPCS: 99214; G2211

== ENCOUNTER → 2025-05-29 09:47 | Outpatient (BNVA) | payer MEDICARE, SELFPAY | PROVIDERS: PCP Internal Medicine; Visit Provider Hospitalist | DX: J44.1 Chronic obstructive pulmonary disease with (acute) exacerbation (principal); R91.8 Other nonspecific abnormal finding of lung field; R06.00 Dyspnea, unspecified; J84.9 Interstitial pulmonary disease, unspecified; G47.10 Hypersomnia, unspecified | CPT/HCPCS: 99212 ==